=== PATIENT | male | born 1940 | race Caucasian/White ===

== ENCOUNTER 2018-11-23 15:52 | Emergency (ER) | payer MEDICARE, MEDICAID, SELFPAY ==
[2018-11-23 15:47] VITALS: BP 195/65; PULSE 51; RESP 18; TEMP 36.7; O2SAT 100
--- NOTE | 2018-11-23 16:10 | DI.RAD.S_ITS ---
PROCEDURE: XR CHEST 1V INDICATIONS: chest pain TECHNIQUE: One view of the chest was acquired. COMPARISON: [facility], , CHEST 2 VIEW, 06/04/2010, 9:54. FINDINGS: Surgical changes and devices: None. Lungs and pleura: Lungs are clear. No pleural effusions or pneumothorax. Mediastinum: Mediastinal contours appear normal. Heart size is normal. Bones and chest wall: No suspicious bony lesions. Overlying soft tissues appear unremarkable. IMPRESSION: No acute cardiopulmonary disease process. Dictated by: Ashley Austin MD, PhD on 11/23/2018 at 16:23 Approved by: Ashley Austin MD, PhD on 11/23/2018 at 16:24
[2018-11-23 16:16] VITALS: BP 213/66; PULSE 48; RESP 18; O2SAT 99
[2018-11-23 16:19] LABS: Add Manual Diff / Slide Review NO; Basophils Absolute Auto 100 /uL (0-100); Basophils Percent Auto 0.6 % (0-2); Eosinophils Absolute Auto 100 /uL (0-450); Eosinophils Percent Auto 1.7 % (2-4); Hematocrit 36.7 % (41-53); Hemoglobin 12.2 g/dL (13.5-17.5); Lymphocytes Absolute Auto 2000 /uL (1100-4500); Lymphocytes Percent Auto 24.7 % (25-40); Mean Corpuscular HGB Conc 33.3 % (30-36); Mean Corpuscular Hemoglobin 29.3 PG (26-34); Mean Corpuscular Volume 87.8 fL (80-100); Monocytes Absolute Auto 700 /uL (0-900); Monocytes Percent Auto 9.5 % (3-14); Neutrophils Absolute Auto 5000 /uL (1500-7000); Neutrophils Percent Auto 63.5 % (50-75); Platelet Count 223 X10^3/uL (150-400); Red Blood Cell Count 4.17 X10^6/uL (4.5-5.9); Red Cell Distribution Width 13.9 % (11.6-14.8); White Blood Cell Count 7.9 X10^3/uL (4.5-11.0)
[2018-11-23 16:23] LABS: PTT Partial Thromboplastin Tim 31 SECONDS (26.4-36.2)
[2018-11-23 16:25] LABS: Alanine Aminotransferase 16 IU/L (21-72); Albumin 4.4 g/dL (3.5-5.0); Albumin Globulin Ratio 1.3 (1.0-2.8); Alkaline Phosphatase 79 U/L (38-126); Aspartate Aminotransferase 23 IU/L (17-59); Bilirubin Total 0.5 mg/dL (0.2-1.3); Blood Urea Nitrogen 34 mg/dL (9-20); Calcium 8.9 mg/dL (8.4-10.2); Carbon Dioxide 24 mmol/L (22-32); Chloride 107 mmol/L (98-107); Creatine Kinase 155 U/L (55-170); Estimated Glomerular Filt Rate 32.4 mL/min (>60); Globulin 3.4 g/dL (1.7-4.1); Glucose 116 mg/dL (80-110); Lipase 124 U/L (23-300); Magnesium 1.9 mg/dL (1.6-2.3); Potassium 4.6 mmol/L (3.4-5.1); Sodium 142 mmol/L (137-145); Total Protein 7.8 g/dL (6.3-8.2)
[2018-11-23 16:30] VITALS: BP 157/90; PULSE 46; RESP 17; O2SAT 99
[2018-11-23 16:34] LABS: B Type Natriuretic Peptide 224 (<100)
[2018-11-23 16:36] LABS: Troponin I < 0.012 ng/mL (0.01-0.034)
[2018-11-23 16:40] LABS: CKMB % Relative Index 0.8 % (1.5-5.0); Creatine Kinase MB 1.29 ng/mL (<2.37); HEMOLYSIS 20 (0-50)
--- NOTE | 2018-11-23 16:58 | ED.DIZZY ---
HPI - Dizziness General Chief Complaint: Dizziness Stated Complaint: Feeling woozy Time Seen by Provider: 11/23/18 16:35 Source: patient Mode of arrival: ambulatory Limitations: no limitations History of Present Illness HPI Narrative: 78-year-old male who comes in states he feels woozy. Patient states it is not like he is lightheaded he does not feel like he is going to pass out. He does not feel like he is necessarily going to fall down but he just does not feel quite right. He states he will go lay down for he feels better than he gets up after couple hours and walks around feels okay for couple hours in the have feelings again. Patient denies any fevers or chills, no headache, no new vision changes, no chest pain, no chest pressure, no shortness of breath, no nausea or vomiting no other issues with bowel movements. Patient has chronic urinary frequency he states he takes a pill which appears to be a water pill which makes him urinate more frequently. He does state that he recently found his medication for his knees and his osteoarthritis and has been taking it again. It appears this may be his etodolac. Patient denies any other neurologic changes. He is accompanied by his girlfriend of the past 3 years who states that he is his normal mental state. He normally walks unassisted and has been walking unassisted at home. He has not had any recent falls other than falling onto his right knee. He is unsure if he has any chronic kidney disease, he knows he takes medication for blood pressure and for his urination. He denies any prior surgeries. He does continue to smoke a pipe, he states he started smoking around the age of 4. He denies alcohol currently, but used to several years ago. Patient is requesting a pill to make his symptoms feel better so that he can go drive some furniture to another location on Wednesday. Related Data Home Medications Medication Instructions Recorded Confirmed atenolol 50 mg PO DAILY #0 06/03/10 11/23/18 alfuzosin 10 mg PO DAILY 11/23/18 11/23/18 etodolac 400 mg PO BID 11/23/18 11/23/18 furosemide 40 mg PO DAILY 11/23/18 11/23/18 glimepiride 4 mg PO DAILY 11/23/18 11/23/18 lisinopril 20 mg PO DAILY 11/23/18 11/23/18 omeprazole 20 mg PO BID 11/23/18 11/23/18 simvastatin 40 mg PO DAILY 11/23/18 11/23/18 temazepam 30 mg PO BEDTIME PRN 11/23/18 11/23/18 Allergies Allergy/AdvReac Type Severity Reaction Status Date / Time No Known Drug Allergies Allergy Verified 11/23/18 16:13 Review of Systems Review of Systems ROS Unobtainable: All systems reviewed & are unremarkable except as noted in HPI and below Constitutional Denies chills, Denies daytime sleepiness, Denies excessive sweating, Denies fatigue, Denies fever(s), Denies headache(s), Denies lethargy, Denies malaise, Denies weakness and Reports other (Moves the) Eyes Denies change in vision ENT Ears, Nose, Mouth, and Throat: Denies dizziness, Denies headache(s) and Denies disequilibrium Cardiovascular Denies chest pain, Denies diaphoresis, Denies syncope, Denies edema, Denies irregular heart rhythm, Denies lightheadedness, Denies palpitations, Denies dyspnea, Denies dyspnea on exertion and Denies orthopnea Respiratory Denies change in phlegm color, Denies chest congestion, Denies cough, Denies dyspnea, Denies dyspnea on exertion and Denies wheezing Gastrointestinal Gastrointestinal: Denies abdominal pain, Denies change in bowel habits, Denies diarrhea, Denies nausea and Denies vomiting Genitourinary Denies hematuria, Denies dysuria, Denies flank pain, Reports urinary frequency, Denies urinary hesitancy, Denies urinary incontinence and Reports urinary urgency Musculoskeletal Denies back pain, Denies muscle weakness and Denies numbness Integumentary/Breasts Denies rash Neurologic Reports as per HPI, Denies behavioral changes, Denies confusion, Denies dizziness, Denies syncope, Denies headache(s), Denies lack of coordination, Denies focal weakness, Denies numbness, Denies sensory deficit, Denies paresthesias, Denies disequilibrium and Denies weakness Psychiatric Denies behavioral changes and Denies confusion Endocrine Denies excessive sweating, Denies fatigue and Denies palpitations Allergic/Immunologic Denies wheezing [facility] Medical History (Updated 11/23/18 @ 18:21 by Shirley Rincon DO) Dyslipidemia (Chronic) Hypertension (Chronic) Osteoarthritis (Chronic) Social History (Updated 11/23/18 @ 17:13 by Shirley Rincon DO) details: has girlfriend of 3 years Smoking Status: Current every day smoker alcohol intake: former substance use type: does not use Exam Narrative Exam Narrative: GEN: well nourished, well appearing male, alert and oriented x 3, patient appears to be in no acute distress. HEENT: Atraumatic, pupils are equal round reactive to light, extraocular movements are intact, nares are clear, TMs are clear with no fluid, there is no conjunctival pallor. Throat is clear without any exudates, erythema, tonsillar enlargement or uvular deviation, no facial droop. HEART: Regular rate and rhythm without murmur, clicks, rubs. Pulses are equal in upper and lower extremities LUNGS:Lungs clear to auscultation, no wheezes, rales, crackles, chest moves symmetrically ABD:bowel sounds normal, soft, non-tender, no guarding, rebound, rigidity, no masses noted, no hepatosplenomegaly :No CVA tenderness MSCL: Non-tender, no muscle atrophy, muscles strength 5/5 upper and lower extremities, full range of motion, normal gait NEURO:CN 2-12 intact, sensation normal, reflexes 2/4 upper and lower extremities. Initial Vital Signs Initial Vital Signs: Vital Signs Temperature 98.1 F 11/23/18 15:47 Pulse Rate 51 L 11/23/18 15:47 Respiratory Rate 18 11/23/18 15:47 Blood Pressure 195/65 H 11/23/18 15:47 Pulse Oximetry 100 11/23/18 15:47 Scores GCS Anastasia coma scale eye opening: Spontaneous Anastasia coma scale verbal response: Orientated Anastasia coma scale motor response: Obey commands [place] coma scale total score: 15 Course Orders Ordered: ED Orders 11/23/18 15:52 EKG-12 Lead Routine 11/23/18 16:05 BNP [B Type Natriuretic Peptide] Stat Complete Blood Count AUTO DIFF Stat Comprehensive Metabolic Panel Stat Lipase Stat Magnesium Stat Partial Thromboplastin Time Stat Prothrombin Time INR Stat Troponin & CK Cardiac Panel Stat 11/23/18 16:10 XR chest 1V Stat EKG-12 Lead Stat Vital Signs - 8 hr 11/23/18 15:47 11/23/18 16:16 11/23/18 16:30 Temperature 98.1 F Pulse Rate 51 L 48 L 46 L Respiratory Rate 18 18 17 Blood Pressure 195/65 H Blood Pressure [Right Arm] 213/66 H 157/90 H Pulse Oximetry 100 99 99 11/23/18 17:00 11/23/18 17:03 11/23/18 18:08 Temperature Pulse Rate 42 L 44 L 43 L Respiratory Rate 19 18 15 Blood Pressure Blood Pressure [Right Arm] 176/51 H 176/51 H 208/37 H Pulse Oximetry 98 99 100 MDM - Dizziness Lab Data Attestation: I reviewed the patient's lab results. Result diagrams: 11/23/18 16:05 11/23/18 16:05 Lab Results 11/23/18 11/23/18 11/23/18 Range/Units 06:05 16:05 16:05 WBC 7.9 (4.5-11.0) X10^3/uL RBC 4.17 L (4.5-5.9) X10^6/uL Hgb 12.2 L (13.5-17.5) g/dL Hct 36.7 L (41-53) % MCV 87.8 (80-100) fL MCH 29.3 (26-34) PG MCHC 33.3 (30-36) % RDW 13.9 (11.6-14.8) % Plt Count 223 (150-400) X10^3/uL Neut % (Auto) 63.5 (50-75) % Lymph % (Auto) 24.7 L (25-40) % Graves % (Auto) 9.5 (3-14) % Eos % (Auto) 1.7 L (2-4) % Baso % (Auto) 0.6 (0-2) % Neut # (Auto) 5000 (5633-3042) /uL Lymph # (Auto) 2000 (5766-9325) /uL Graves # (Auto) 700 (0-900) /uL Eos # (Auto) 100 (0-450) /uL Baso # (Auto) 100 (0-100) /uL PT 12.0 (10.1-12.7) SECONDS INR 1.0 (0.9-1.3) APTT 31 (26.4-36.2) SECONDS Sodium (137-145) mmol/L Potassium (3.4-5.1) mmol/L Chloride (98-107) mmol/L Carbon Dioxide (22-32) mmol/L BUN (9-20) mg/dL Creatinine (0.66-1.25) mg/dL Estimated GFR (>60) mL/min BUN/Creatinine Ratio (6-22) Glucose (80-110) mg/dL Calcium (8.4-10.2) mg/dL Magnesium (1.6-2.3) mg/dL Total Bilirubin (0.2-1.3) mg/dL AST (17-59) IU/L ALT (21-72) IU/L Alkaline Phosphatase (38-126) U/L Total Creatine Kinase (55-170) U/L CK-MB (CK-2) (<2.37) ng/mL CK-MB (CK-2) Rel Index (1.5-5.0) % Troponin I (0.01-0.034) ng/mL B-Natriuretic Peptide 224 H (<100) Total Protein (6.3-8.2) g/dL Albumin (3.5-5.0) g/dL Globulin (1.7-4.1) g/dL Albumin/Globulin Ratio (1.0-2.8) Lipase (23-300) U/L TSH 1.88 (0.47-4.68) uIU/mL 11/23/18 Range/Units 16:05 WBC (4.5-11.0) X10^3/uL RBC (4.5-5.9) X10^6/uL Hgb (13.5-17.5) g/dL Hct (41-53) % MCV (80-100) fL MCH (26-34) PG MCHC (30-36) % RDW (11.6-14.8) % Plt Count (150-400) X10^3/uL Neut % (Auto) (50-75) % Lymph % (Auto) (25-40) % Graves % (Auto) (3-14) % Eos % (Auto) (2-4) % Baso % (Auto) (0-2) % Neut # (Auto) (4568-8197) /uL Lymph # (Auto) (0288-9331) /uL Graves # (Auto) (0-900) /uL Eos # (Auto) (0-450) /uL Baso # (Auto) (0-100) /uL PT (10.1-12.7) SECONDS INR (0.9-1.3) APTT (26.4-36.2) SECONDS Sodium 142 (137-145) mmol/L Potassium 4.6 (3.4-5.1) mmol/L Chloride 107 (98-107) mmol/L Carbon Dioxide 24 (22-32) mmol/L BUN 34 H (9-20) mg/dL Creatinine 2.00 H (0.66-1.25) mg/dL Estimated GFR 32.4 L (>60) mL/min BUN/Creatinine Ratio 17.0 (6-22) Glucose 116 H (80-110) mg/dL Calcium 8.9 (8.4-10.2) mg/dL Magnesium 1.9 (1.6-2.3) mg/dL Total Bilirubin 0.5 (0.2-1.3) mg/dL AST 23 (17-59) IU/L ALT 16 L (21-72) IU/L Alkaline Phosphatase 79 (38-126) U/L Total Creatine Kinase 155 (55-170) U/L CK-MB (CK-2) 1.29 (<2.37) ng/mL CK-MB (CK-2) Rel Index 0.8 L (1.5-5.0) % Troponin I < 0.012 (0.01-0.034) ng/mL B-Natriuretic Peptide (<100) Total Protein 7.8 (6.3-8.2) g/dL Albumin 4.4 (3.5-5.0) g/dL Globulin 3.4 (1.7-4.1) g/dL Albumin/Globulin Ratio 1.3 (1.0-2.8) Lipase 124 (23-300) U/L TSH (0.47-4.68) uIU/mL Urine Dip Bedside Urine Glucose Negative Bedside Urine Bilirubin +++ 4 Bedside Urine Ketone - Negative Urine Specific [place] 1.020 Bedside Urine Occult Blood - Negative Bedside Urine pH 5.0 Bedside Urine Protein +/- 15 Bedside Urine Urobilinogen - Negative Bedside Urine Nitrite - Negative Bedside Urine Leukocytes - Negative Esterase Imaging Data Chest x-ray: Radiologist's impression: [address] [address] XRay Report Signed Patient: Robin Baugh EMR#: [id number] : 1940Acct:[id number] Age/Sex: 78 / MDate of Service: 11/23/18 Loc: ED Accession Number: [id number] Procedure: XR chest 1V Ordering Provider: Shirley Rincon D.O. PROCEDURE: XR CHEST 1V INDICATIONS: chest pain TECHNIQUE: One view of the chest was acquired. COMPARISON: [facility], , CHEST 2 VIEW, 06/04/2010, 9:54. FINDINGS: Surgical changes and devices: None. Lungs and pleura: Lungs are clear. No pleural effusions or pneumothorax. Mediastinum: Mediastinal contours appear normal. Heart size is normal. Bones and chest wall: No suspicious bony lesions. Overlying soft tissues appear unremarkable. IMPRESSION: No acute cardiopulmonary disease process. Dictated by: Ashley Austin MD, PhD on 11/23/2018 at 16:23 Approved by: Ashley Austin MD, PhD on 11/23/2018 at 16:24 ECG Data Attestation: I personally reviewed and interpreted this ECG as follows: Prior ECG tracings: not available for review Interpretation: Sinus bradycardia with a rate of 49, TX interval 183, QRS of 114, QTC of 409. Q-wave of [address] elevation appreciated. No priors available. MDM Narrative Medical decision making narrative: Patient comes in for described, wooziness. When asked specifically he describes it not as dizziness, not of lightheadedness and does not feel like he is going to pass said he just feels woozy and cannot really explain in any other way. He does not have any dislike liberally, no vertigo or other similar symptoms. Patient's labs show mild anemia, coags are normal, his creatinine is 2 with a BUN of 34. I am not able to obtain any prior labs so this may be his baseline but it is unclear. Patient's glucose is 116, BNP is 224 with a troponin of less than 0.012. TSH is normal. Patient's heart rate is in the 40s which could be contributing to his symptoms. He does take atenolol but he is hypertensive in the department. Patient was able to ambulate multiple times through the emergency department. Continues to be asymptomatic at this time. Point of care urine did not show any signs of infection or dehydration. Discussed with patient he would like to return home. I asked that he call his primary care provider tomorrow for follow-up for re-evaluation. Also paged Dr. Pearl who is covering for his primary care team. Patient did not want to wait for a callback. Discharge Plan Departure Patient Disposition: Home Clinical Impression: Dizziness Discharge Date/Time: 11/23/18 18:28 Interventions: ED Discharge Assessment Last Done: 11/23/18 18:27 Instructions: DI for Dizziness-Nonvertigo Activity Restrictions/Additional Instructions: Follow up with primary care in the next 24-48 hours. Call for an appointment in the morning. Continue home medications as prescribed. Return to the ER for fevers greater than 100.4F, worsening wooziness, passing out, new chest pain, shortness of breath, persistent vomiting, black or bloody stools, sudden severe headaches, difficulty with speech, weakness in your extremities, new vision changes or other new or concerning symptoms. Prescriptions: No Action atenolol 50 MG tablet 50 mg PO DAILY Qty: 0 RF: 0 lisinopril 20 mg tablet 20 mg PO DAILY RF: 0 simvastatin 40 mg tablet 40 mg PO DAILY RF: 0 temazepam 30 mg capsule 30 mg PO BEDTIME PRN (Reason: Sleep) RF: 0 glimepiride 4 mg tablet 4 mg PO DAILY RF: 0 omeprazole 20 mg capsule,delayed release(DR/EC) 20 mg PO BID RF: 0 etodolac 400 mg tablet 400 mg PO BID RF: 0 furosemide 20 mg tablet 40 mg PO DAILY RF: 0 alfuzosin 10 mg tablet extended release 24 hr 10 mg PO DAILY RF: 0 Referrals: Ashvin Vazquez MD [Physician] - Kelsey Peña MD [Non-Staff] -
[2018-11-23 17:00] VITALS: BP 176/51; PULSE 42; RESP 19; O2SAT 98
[2018-11-23 17:03] VITALS: BP 176/51; PULSE 44; RESP 18; O2SAT 99
[2018-11-23 17:44] LABS: Thyroid Stimulating Hormone 1.88 uIU/mL (0.47-4.68)
[2018-11-23 18:08] VITALS: BP 208/37; PULSE 43; RESP 15; O2SAT 100
== END 2018-11-23 18:28 | disposition home or self-care (01) ==
PROVIDERS: Emergency Provider Emergency Medicine
DX: R42 Dizziness and giddiness (principal); R00.1 Bradycardia, unspecified
CPT/HCPCS: 36591; 71045; 80053; 81003; 82550; 82553; 83690; 83735; 83880; 84443; 84484; 85025; 85610; 85730; 93005; 93010; 99283; 99285

== ENCOUNTER → 2021-08-14 16:31 | Outpatient (ROUT) | payer OTHER, MEDICAID, SELFPAY ==
[2021-08-14 17:01] LABS: BUN Creatinine Ratio 24.8 (6-22); Blood Urea Nitrogen 40 mg/dL (9-20); Calcium 8.6 mg/dL (8.4-10.2); Carbon Dioxide 21 mmol/L (22-32); Chloride 108 mmol/L (98-107); Estimated Glomerular Filt Rate 43 mL/min (>60); Glucose 153 mg/dL (80-110); HEMOLYSIS 31 (0-50); Potassium 4.6 mmol/L (3.4-5.1); Sodium 140 mmol/L (137-145)
[2021-08-14 17:20] LABS: Hemoglobin A1C% w Est Avg Glu 6.5 % (4.0-6.0)
== END ==
PROVIDERS: Visit Provider Student in an Organized Health Care Education/Training Program
DX: E11.29 Type 2 diabetes mellitus with other diabetic kidney complication (principal); E87.6 Hypokalemia; I12.9 Hypertensive chronic kidney disease with stage 1 through stage 4 chronic kidney disease, or unspecified chronic kidney disease
CPT/HCPCS: 80048; 83036

== ENCOUNTER 2021-09-24 07:54 | Inpatient (IN) | payer OTHER, MEDICAID, SELFPAY ==
[2021-09-24] VITALS (39 sets, daily range): BP systolic 152–234; BP diastolic 68–153; PULSE 46–77; RESP 16–33; TEMP 36.3–36.9; O2SAT 94–100; BMI 25.0
--- NOTE | 2021-09-24 08:43 | ED.FALL ---
HPI - Fall General Chief Complaint: Fall Stated Complaint: feels funny, trouble getting into bed, fell Time Seen by Provider: 09/24/21 08:43 Source: patient Mode of arrival: Family Vehicle Limitations: no limitations History of Present Illness HPI Narrative: This is an 80-year-old male who states that last night he was feeling funny, he kept falling while trying to get into bed. He states that his leg seem like it was not working very well. He did not appreciate any headache, no neck or back pain, patient states he did not think he hit his head, no chest pain or shortness of breath. No nausea or vomiting. No difficulty with speech or facial droop, he denies any numbness or tingling of his extremities. He states that his leg seems to be working fine. He had several falls and EMS was contacted this morning and his glucose was found to be 40, he was given glucose, rechecked in the 70s and patient elected to arrived via private auto. Patient ambulating normally at this time. He does have a history of hypertension, dyslipidemia, CKD, diabetes on oral medications only. Related Data Home Medications Medication Instructions Recorded Confirmed atenolol 50 mg tablet 50 mg PO DAILY ##0 06/03/10 09/24/21 alfuzosin 10 mg tablet,extended 10 mg PO DAILY 11/23/18 09/24/21 release 24 hr furosemide 20 mg tablet 40 mg PO DAILY 11/23/18 09/24/21 omeprazole 20 mg capsule,delayed 20 mg PO BID 11/23/18 09/24/21 release melatonin 5 mg tablet 5 mg PO BEDTIME 09/24/21 09/24/21 potassium chloride 10 mEq 10 meq PO DAILY 09/24/21 09/24/21 tablet,extended release(part/cryst) trazodone 100 mg tablet 100 mg PO BEDTIME 09/24/21 09/24/21 Previous Rx's Medication Instructions Recorded aspirin 81 mg tablet,delayed 81 mg PO DAILY #30 tabs 09/27/21 release atorvastatin 80 mg tablet 80 mg PO BEDTIME #90 tabs 09/27/21 lisinopril 20 mg tablet 30 mg PO DAILY #30 tabs 09/27/21 Allergies Allergy/AdvReac Type Severity Reaction Status Date / Time No Known Drug Allergies Allergy Verified 09/24/21 08:38 Review of Systems Review of Systems ROS Unobtainable: All systems reviewed & are unremarkable except as noted in HPI and below Patient History Medical History Dyslipidemia Hypertension Osteoarthritis Social History details: has girlfriend of 3 years household members: none Smoking Status: Former smoker alcohol intake: former substance use type: does not use Smoking Status: Former smoker alcohol intake frequency: 0-2 drinks per day Substance Use Type: does not use Exam Narrative Exam Narrative: GEN: well nourished, well appearing male, alert and oriented x 3, patient appears to be in mild distress. HEENT: Atraumatic, pupils are equal round reactive to light, extraocular movements are intact, nares are clear, TMs are clear with no fluid, there is no conjunctival pallor. Throat is clear without any exudates, erythema, tonsillar enlargement or uvular deviation, no facial droop. Normal speech. HEART: Regular rate and rhythm without murmur, clicks, rubs. Pulses are equal in upper and lower extremities LUNGS:Lungs clear to auscultation, no wheezes, rales, crackles, chest moves symmetrically ABD:bowel sounds normal, soft, non-tender, no guarding, rebound, rigidity, no masses noted, no hepatosplenomegaly :No CVA tenderness MSCL: Non-tender, no muscle atrophy, muscles strength 5/5 upper and lower extremities, full range of motion, normal gait, patient does use walker but ambulates without any issue and quite quickly. NEURO:CN 2-12 intact, sensation normal, reflexes 2/4 upper and lower extremities. finger nose finger test normal, heel robles test normal, romberg normal SKIN: Rash, erythema or other skin changes. Initial Vital Signs Initial Vital Signs: Vital Signs Pulse Oximetry 100 09/24/21 08:03 Course Orders Ordered: Discontinued Medications Acetaminophen (Acetaminophen 325 Mg Tablet) 650 mg PO Q6HR [facility] Last Admin: 09/27/21 11:02 Dose: Not Given Documented By: Admin: 09/27/21 05:57 Dose: 650 mg Documented By: Admin: 09/27/21 00:08 Dose: Not Given Documented By: Admin: 09/26/21 17:39 Dose: 650 mg Documented By: Admin: 09/26/21 12:21 Dose: 650 mg Documented By: Admin: 09/26/21 06:02 Dose: 650 mg Documented By: Admin: 09/26/21 00:59 Dose: 650 mg Documented By: Admin: 09/25/21 17:30 Dose: 650 mg Documented By: Admin: 09/25/21 12:00 Dose: Not Given Documented By: Admin: 09/25/21 06:00 Dose: 650 mg Documented By: Admin: 09/24/21 23:30 Dose: 650 mg Documented By: Admin: 09/24/21 18:37 Dose: 650 mg Documented By: DEYSI Aspirin (Aspirin 81 Mg Chew Tab) 324 mg PO NOW ONE Stop: 09/24/21 10:48 Last Admin: 09/24/21 12:23 Dose: 324 mg Documented By: TURNER Aspirin (Aspirin Ec 81 Mg Tablet) 81 mg PO DAILY [facility] Last Admin: 09/27/21 08:50 Dose: 81 mg Documented By: Admin: 09/26/21 08:46 Dose: 81 mg Documented By: Admin: 09/25/21 09:11 Dose: 81 mg Documented By: EM Atenolol (Atenolol 50 Mg Tablet) 50 mg PO NOW ONE Stop: 09/24/21 09:36 Last Admin: 09/24/21 10:00 Dose: 50 mg Documented By: TURNER Atenolol (Atenolol 50 Mg Tablet) 50 mg PO DAILY [facility] Last Admin: 09/27/21 08:50 Dose: 50 mg Documented By: Admin: 09/26/21 08:48 Dose: Not Given Documented By: Admin: 09/25/21 09:11 Dose: Not Given Documented By: EM Atorvastatin Calcium (Atorvastatin 20 Mg Tablet) 80 mg PO BEDTIME [facility] Last Admin: 09/26/21 21:27 Dose: 80 mg Documented By: Admin: 09/25/21 21:05 Dose: 80 mg Documented By: Admin: 09/24/21 20:45 Dose: 80 mg Documented By: RON Dextrose (Dextrose 50 % In Water 25 Gm/50 Ml Syringe) 25 gm IV PRN PRN PRN Reason: Hypoglycemia Enoxaparin Sodium (Enoxaparin 40 Mg/0.4 Ml Syringe) 40 mg SUBCUT DAILY [facility] Last Admin: 09/27/21 08:50 Dose: 40 mg Documented By: Admin: 09/26/21 08:46 Dose: 40 mg Documented By: Admin: 09/25/21 09:11 Dose: 40 mg Documented By: EM Furosemide (Furosemide 20 Mg Tablet) 40 mg PO DAILY [facility] Last Admin: 09/27/21 08:50 Dose: 40 mg Documented By: Admin: 09/26/21 08:53 Dose: Not Given Documented By: EDWIN Furosemide (Furosemide 40 Mg/4 Ml Vial) 40 mg IV NOW ONE Stop: 09/25/21 08:02 Last Admin: 09/25/21 11:28 Dose: 40 mg Documented By: EM Glimepiride (Glimepiride 2 Mg Tablet) 4 mg PO DAILY [facility] Hydralazine HCl (Hydralazine 20 Mg/Ml Vial) 10 mg IV Q6HR PRN PRN Reason: Blood Pressure - High Last Admin: 09/27/21 00:33 Dose: 10 mg Documented By: Admin: 09/26/21 00:50 Dose: 10 mg Documented By: RON Hydralazine HCl (Hydralazine 20 Mg/Ml Vial) 5 mg IV NOW ONE Stop: 09/26/21 12:46 Last Admin: 09/26/21 13:13 Dose: 5 mg Documented By: EDWIN Remdesivir 200 mg/ Sodium (Chloride) 250 mls @ 250 mls/hr IV NOW ONE Stop: 09/24/21 19:00 Last Infusion: 09/24/21 19:36 Dose: 0 mls/hr Documented By: Admin: 09/24/21 18:36 Dose: 250 mls/hr Documented By: DEYSI Remdesivir 100 mg/ Sodium (Chloride) 250 mls @ 250 mls/hr IV DAILY@1800 [facility] Stop: 09/28/21 18:59 Last Admin: 09/26/21 17:39 Dose: 250 mls/hr Documented By: Infusion: 09/25/21 19:00 Dose: 0 mls/hr Documented By: Admin: 09/25/21 17:30 Dose: 250 mls/hr Documented By: NINO Magnesium Sulfate (Magnesium Sulfate) 2 gm in 50 mls @ 25 mls/hr IV NOW ONE Stop: 09/25/21 09:58 Last Admin: 09/25/21 11:28 Dose: 25 mls/hr Documented By: EM Co-signed By: KITTY Potassium Phosphate 30 mmol/ (Sodium Chloride) 510 mls @ 127.5 mls/hr IV NOW ONE Stop: 09/25/21 08:00 Last Admin: 09/25/21 13:33 Dose: 127.5 mls/hr Documented By: EM Ibuprofen (Ibuprofen 600 Mg Tablet) 600 mg PO Q8HR [facility] Last Admin: 09/27/21 13:14 Dose: Not Given Documented By: Admin: 09/27/21 05:57 Dose: 600 mg Documented By: Admin: 09/26/21 21:27 Dose: 600 mg Documented By: Admin: 09/26/21 13:14 Dose: Not Given Documented By: Admin: 09/26/21 06:02 Dose: 600 mg Documented By: Admin: 09/25/21 21:09 Dose: 600 mg Documented By: Admin: 09/25/21 13:35 Dose: 600 mg Documented By: Admin: 09/25/21 06:00 Dose: 600 mg Documented By: Admin: 09/24/21 21:10 Dose: 600 mg Documented By: RON Insulin Human Lispro (Insulin Lispro 100 Unit/Ml 3ml Vial) 0 unit SUBCUT [facility]; Protocol Last Admin: 09/27/21 12:33 Dose: Not Given Documented By: Admin: 09/27/21 08:49 Dose: Not Given Documented By: Admin: 09/26/21 21:28 Dose: Not Given Documented By: Admin: 09/26/21 17:20 Dose: 1 unit Documented By: OW Co-signed By: MS Admin: 09/26/21 12:21 Dose: 1 unit Documented By: OW Co-signed By: NC Admin: 09/26/21 08:47 Dose: 1 unit Documented By: OW Co-signed By: CLL Admin: 09/25/21 21:06 Dose: Not Given Documented By: Admin: 09/25/21 17:30 Dose: 1 unit Documented By: EM Co-signed By: AILEEN Admin: 09/25/21 11:50 Dose: Not Given Documented By: Admin: 09/25/21 09:12 Dose: Not Given Documented By: Admin: 09/24/21 21:11 Dose: Not Given Documented By: RF Labetalol HCl (Labetalol 20 Mg/4 Ml Syringe) 20 mg IV NOW ONE Stop: 09/24/21 19:49 Last Admin: 09/24/21 20:44 Dose: Not Given Documented By: RON Lisinopril (Lisinopril 20 Mg Tablet) 20 mg PO NOW ONE Stop: 09/24/21 09:36 Last Admin: 09/24/21 10:01 Dose: 20 mg Documented By: TURNER Lisinopril (Lisinopril 20 Mg Tablet) 20 mg PO DAILY [facility] Last Admin: 09/27/21 08:50 Dose: 20 mg Documented By: Admin: 09/26/21 08:46 Dose: 20 mg Documented By: Admin: 09/25/21 09:11 Dose: 20 mg Documented By: NINO Lisinopril (Lisinopril 10 Mg Tablet) 10 mg PO NOW ONE Stop: 09/27/21 13:37 Last Admin: 09/27/21 13:44 Dose: 10 mg Documented By: LAURY Magnesium Hydroxide (Magnesium Hydroxide 30 Ml Udc) 30 ml PO DAILY PRN PRN Reason: Constipation Morphine Sulfate (Morphine 2 Mg/Ml Inj) 2 mg IV Q5MIN PRN PRN Reason: Chest Pain Naloxone HCl (Naloxone 0.4 Mg/Ml Vial) 0.2 mg IV Q2MIN PRN PRN Reason: Opiate Reversal Nitroglycerin (Nitroglycerin 0.4 Mg Sl Tab) 0.4 mg SL [id number] PRN PRN Reason: Chest Pain Alfuzosin 10 Mg Tablet Extended Release 24 Hr 10 mg PO BEDTIME [facility] Last Admin: 09/26/21 21:27 Dose: Not Given Documented By: Admin: 09/25/21 21:04 Dose: 10 mg Documented By: Admin: 09/24/21 21:10 Dose: 10 mg Documented By: RON Non-Formulary Medication (Omeprazole) 20 mg PO BID [facility] Home Med Storage 0 each PO PRN PRN PRN Reason: HOME MED STORAGE Ondansetron HCl (Ondansetron 4 Mg/2 Ml Inj) 4 mg IV Q8HR PRN PRN Reason: Nausea And Vomiting Pantoprazole Sodium (Pantoprazole Dr 20 Mg Tablet) 20 mg PO 0600 [facility] Last Admin: 09/27/21 05:57 Dose: 20 mg Documented By: Admin: 09/26/21 06:03 Dose: 20 mg Documented By: Admin: 09/25/21 06:00 Dose: 20 mg Documented By: RON Trazodone HCl (Trazodone 100 Mg Tablet) 100 mg PO BEDTIME [facility] Last Admin: 09/26/21 21:27 Dose: 100 mg Documented By: Admin: 09/25/21 21:05 Dose: 100 mg Documented By: Admin: 09/24/21 21:10 Dose: 100 mg Documented By: RON Trazodone HCl (Trazodone 100 Mg Tablet) 100 mg PO BEDTIME [facility] Last Admin: 09/25/21 21:06 Dose: Not Given Documented By: Admin: 09/24/21 21:12 Dose: Not Given Documented By: RON Reevaluation(s) Reevaluation #1: Recheck patient's troponin was positive, he continues to be hypertensive given his home medications which he had not taken this morning. Repeat troponin is negative. Patient is asymptomatic. Plan to repeat a 3rd time as lab ran both initial positive and secondary negative twice. Discussed with patient potential for lab error and 3rd troponin was drawn and is pending Consultations Consultation #1: Spoke with Dr. Keita, cardiology. Patient at this time is COVID positive, no acute EKG changes he is asymptomatic but does have a positive troponin suspect this is likely hypertrophic knee media and does not recommend heparin at this time. We did note that it was trending upwards. Consultation #2: Spoke initially with Dr. 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 Spoke with Dr. Plummer and he will be down to see patient.? Reviewed findings today incidental COVID which patient seemed to be asymptomatic other than falls with positive troponin, possible lab error but repeat troponin on the 3rd time is positive.? Patient was hypoglycemic but improved his glucose. Vital Signs Vital signs: Vital Signs - 8 hr 09/24/21 08:03 09/24/21 08:05 09/24/21 08:11 Temperature Pulse Rate 60 60 Respiratory Rate 20 Blood Pressure 211/88 H 183/135 H Pulse Oximetry 100 99 100 09/24/21 08:14 09/24/21 08:30 09/24/21 08:49 Temperature 98.5 F Pulse Rate 60 58 L 59 L Respiratory Rate 19 26 H 27 H Blood Pressure 211/88 H 207/95 H Pulse Oximetry 97 99 99 09/24/21 09:00 09/24/21 09:21 09/24/21 09:30 Temperature Pulse Rate 60 61 60 Respiratory Rate 33 H 33 H Blood Pressure 180/89 H Pulse Oximetry 99 99 99 09/24/21 09:31 09/24/21 09:56 09/24/21 10:00 Temperature Pulse Rate 62 68 60 Respiratory Rate 24 19 20 Blood Pressure 206/92 H 215/153 H Pulse Oximetry 99 96 98 09/24/21 10:01 09/24/21 10:30 09/24/21 10:31 Temperature Pulse Rate 63 61 61 Respiratory Rate 27 H 19 18 Blood Pressure 209/120 H 207/78 H Pulse Oximetry 99 98 98 09/24/21 11:00 09/24/21 11:59 09/24/21 12:00 Temperature Pulse Rate 62 58 L 56 L Respiratory Rate 24 19 Blood Pressure Pulse Oximetry 99 98 98 09/24/21 12:11 09/24/21 12:30 09/24/21 13:14 Temperature Pulse Rate 53 L 59 L 56 L Respiratory Rate 18 20 Blood Pressure 195/86 H Pulse Oximetry 99 98 - Fall Lab Data Result diagrams: 09/27/21 06:12 09/27/21 06:12 Labs: Lab Results 09/24/21 09/24/21 09/24/21 Range/Units 08:48 08:48 09:03 WBC 6.1 (4.5-11.0) X10^3/uL RBC 3.78 L (4.5-5.9) X10^6/uL Hgb 10.9 L (13.5-17.5) g/dL Hct 33.1 L (41-53) % MCV 87.6 (80-100) fL MCH 28.9 (26-34) PG MCHC 33.0 (30-36) % RDW 14.5 (11.6-14.8) % Plt Count 210 (150-400) X10^3/uL Neut % (Auto) 78.0 H (50-75) % Lymph % (Auto) 10.7 L (25-40) % [place] % (Auto) 10.7 (3-14) % Eos % (Auto) 0.2 L (2-4) % Baso % (Auto) 0.4 (0-2) % Neut # (Auto) 4800 (8002-8693) /uL Lymph # (Auto) 700 L (3413-6804) /uL [place] # (Auto) 700 (0-900) /uL Eos # (Auto) 0 (0-450) /uL Baso # (Auto) 0 (0-100) /uL PT (10.1-12.7) SECONDS INR (0.9-1.3) APTT (26.4-36.2) SECONDS Sodium 135 L (137-145) mmol/L Potassium 3.9 (3.4-5.1) mmol/L Chloride 104 (98-107) mmol/L Carbon Dioxide 21 L (22-32) mmol/L BUN 25 H (9-20) mg/dL Creatinine 1.36 H (0.66-1.25) mg/dL Estimated GFR 52 L (>60) mL/min BUN/Creatinine Ratio 18.4 (6-22) Glucose 167 H (80-110) mg/dL Calcium 8.1 L (8.4-10.2) mg/dL Total Bilirubin 0.4 (0.2-1.3) mg/dL AST 44 (17-59) IU/L ALT 19 (<50) IU/L Alkaline Phosphatase 61 (38-126) U/L Total Creatine Kinase 609 H (55-170) U/L CK-MB (CK-2) 8.51 H (<2.37) ng/mL CK-MB (CK-2) Rel Index 1.4 L (1.5-5.0) % Troponin I 0.260 H* (0.01-0.034) ng/mL NT-Pro-B Natriuret Pep (<450) pg/mL Total Protein 7.0 (6.3-8.2) g/dL Albumin 3.7 (3.5-5.0) g/dL Globulin 3.3 (1.7-4.1) g/dL Albumin/Globulin Ratio 1.1 (1.0-2.8) Urine RBC (0-5/HPF) Urine WBC (0-5/HPF) Ur Squamous Epith Cells (0-5/HPF) Urine Bacteria (None) Hyaline Casts (None) Granular Casts (None) Ur Culture Indicated? U Opiates 300ng/mL cut (Negative) Ur Oxycodone Screen (Negative) Urine Methadone Screen (Negative) Ur Barbiturates Screen (Negative) U Tricyclic Antidepress (Negative) Ur Phencyclidine Scrn (Negative) Ur Amphetamines Screen (Negative) U Methamphetamines Scrn (Negative) Ur MDMA Scrn (Ecstasy) (Negative) U Benzodiazepines Scrn (Negative) Urine Cocaine Screen (Negative) U Marijuana (THC) Screen (Negative) SARS-CoV-2 (PCR) (Negative) 09/24/21 09/24/21 09/24/21 Range/Units 09:03 09:20 09:20 WBC (4.5-11.0) X10^3/uL RBC (4.5-5.9) X10^6/uL Hgb (13.5-17.5) g/dL Hct (41-53) % MCV (80-100) fL MCH (26-34) PG MCHC (30-36) % RDW (11.6-14.8) % Plt Count (150-400) X10^3/uL Neut % (Auto) (50-75) % Lymph % (Auto) (25-40) % [place] % (Auto) (3-14) % Eos % (Auto) (2-4) % Baso % (Auto) (0-2) % Neut # (Auto) (3982-7546) /uL Lymph # (Auto) (9675-2565) /uL [place] # (Auto) (0-900) /uL Eos # (Auto) (0-450) /uL Baso # (Auto) (0-100) /uL PT (10.1-12.7) SECONDS INR (0.9-1.3) APTT (26.4-36.2) SECONDS Sodium (137-145) mmol/L Potassium (3.4-5.1) mmol/L Chloride (98-107) mmol/L Carbon Dioxide (22-32) mmol/L BUN (9-20) mg/dL Creatinine (0.66-1.25) mg/dL Estimated GFR (>60) mL/min BUN/Creatinine Ratio (6-22) Glucose (80-110) mg/dL Calcium (8.4-10.2) mg/dL Total Bilirubin (0.2-1.3) mg/dL AST (17-59) IU/L ALT (<50) IU/L Alkaline Phosphatase (38-126) U/L Total Creatine Kinase (55-170) U/L CK-MB (CK-2) (<2.37) ng/mL CK-MB (CK-2) Rel Index (1.5-5.0) % Troponin I (0.01-0.034) ng/mL NT-Pro-B Natriuret Pep 2920 H (<450) pg/mL Total Protein (6.3-8.2) g/dL Albumin (3.5-5.0) g/dL Globulin (1.7-4.1) g/dL Albumin/Globulin Ratio (1.0-2.8) Urine RBC 0-1/hpf (0-5/HPF) Urine WBC 0-1/hpf (0-5/HPF) Ur Squamous Epith Cells 0-1 /hpf (0-5/HPF) Urine Bacteria Few (2-10) H (None) Hyaline Casts 0-1/lpf (None) Granular Casts 1-5/lpf (None) Ur Culture Indicated? Culture not indicate U Opiates 300ng/mL cut Negative (Negative) Ur Oxycodone Screen Negative (Negative) Urine Methadone Screen Negative (Negative) Ur Barbiturates Screen Negative (Negative) U Tricyclic Antidepress Negative (Negative) Ur Phencyclidine Scrn Negative (Negative) Ur Amphetamines Screen Negative (Negative) U Methamphetamines Scrn Negative (Negative) Ur MDMA Scrn (Ecstasy) Negative (Negative) U Benzodiazepines Scrn Negative (Negative) Urine Cocaine Screen Negative (Negative) U Marijuana (THC) Screen Negative (Negative) SARS-CoV-2 (PCR) (Negative) 09/24/21 09/24/21 09/24/21 Range/Units 09:25 10:27 12:10 WBC (4.5-11.0) X10^3/uL RBC (4.5-5.9) X10^6/uL Hgb (13.5-17.5) g/dL Hct (41-53) % MCV (80-100) fL MCH (26-34) PG MCHC (30-36) % RDW (11.6-14.8) % Plt Count (150-400) X10^3/uL Neut % (Auto) (50-75) % Lymph % (Auto) (25-40) % [place] % (Auto) (3-14) % Eos % (Auto) (2-4) % Baso % (Auto) (0-2) % Neut # (Auto) (2020-0839) /uL Lymph # (Auto) (6649-3667) /uL [place] # (Auto) (0-900) /uL Eos # (Auto) (0-450) /uL Baso # (Auto) (0-100) /uL PT 12.9 H (10.1-12.7) SECONDS INR 1.2 (0.9-1.3) APTT 36 D (26.4-36.2) SECONDS Sodium (137-145) mmol/L Potassium (3.4-5.1) mmol/L Chloride (98-107) mmol/L Carbon Dioxide (22-32) mmol/L BUN (9-20) mg/dL Creatinine (0.66-1.25) mg/dL Estimated GFR (>60) mL/min BUN/Creatinine Ratio (6-22) Glucose (80-110) mg/dL Calcium (8.4-10.2) mg/dL Total Bilirubin (0.2-1.3) mg/dL AST (17-59) IU/L ALT (<50) IU/L Alkaline Phosphatase (38-126) U/L Total Creatine Kinase (55-170) U/L CK-MB (CK-2) (<2.37) ng/mL CK-MB (CK-2) Rel Index (1.5-5.0) % Troponin I Cancelled (0.01-0.034) ng/mL NT-Pro-B Natriuret Pep (<450) pg/mL Total Protein (6.3-8.2) g/dL Albumin (3.5-5.0) g/dL Globulin (1.7-4.1) g/dL Albumin/Globulin Ratio (1.0-2.8) Urine RBC (0-5/HPF) Urine WBC (0-5/HPF) Ur Squamous Epith Cells (0-5/HPF) Urine Bacteria (None) Hyaline Casts (None) Granular Casts (None) Ur Culture Indicated? U Opiates 300ng/mL cut (Negative) Ur Oxycodone Screen (Negative) Urine Methadone Screen (Negative) Ur Barbiturates Screen (Negative) U Tricyclic Antidepress (Negative) Ur Phencyclidine Scrn (Negative) Ur Amphetamines Screen (Negative) U Methamphetamines Scrn (Negative) Ur MDMA Scrn (Ecstasy) (Negative) U Benzodiazepines Scrn (Negative) Urine Cocaine Screen (Negative) U Marijuana (THC) Screen (Negative) SARS-CoV-2 (PCR) Positive H (Negative) 09/24/21 Range/Units 13:40 WBC (4.5-11.0) X10^3/uL RBC (4.5-5.9) X10^6/uL Hgb (13.5-17.5) g/dL Hct (41-53) % MCV (80-100) fL MCH (26-34) PG MCHC (30-36) % RDW (11.6-14.8) % Plt Count (150-400) X10^3/uL Neut % (Auto) (50-75) % Lymph % (Auto) (25-40) % [place] % (Auto) (3-14) % Eos % (Auto) (2-4) % Baso % (Auto) (0-2) % Neut # (Auto) (0199-8043) /uL Lymph # (Auto) (0948-9489) /uL [place] # (Auto) (0-900) /uL Eos # (Auto) (0-450) /uL Baso # (Auto) (0-100) /uL PT (10.1-12.7) SECONDS INR (0.9-1.3) APTT (26.4-36.2) SECONDS Sodium (137-145) mmol/L Potassium (3.4-5.1) mmol/L Chloride (98-107) mmol/L Carbon Dioxide (22-32) mmol/L BUN (9-20) mg/dL Creatinine (0.66-1.25) mg/dL Estimated GFR (>60) mL/min BUN/Creatinine Ratio (6-22) Glucose (80-110) mg/dL Calcium (8.4-10.2) mg/dL Total Bilirubin (0.2-1.3) mg/dL AST (17-59) IU/L ALT (<50) IU/L Alkaline Phosphatase (38-126) U/L Total Creatine Kinase (55-170) U/L CK-MB (CK-2) (<2.37) ng/mL CK-MB (CK-2) Rel Index (1.5-5.0) % Troponin I 0.446 H* (0.01-0.034) ng/mL NT-Pro-B Natriuret Pep (<450) pg/mL Total Protein (6.3-8.2) g/dL Albumin (3.5-5.0) g/dL Globulin (1.7-4.1) g/dL Albumin/Globulin Ratio (1.0-2.8) Urine RBC (0-5/HPF) Urine WBC (0-5/HPF) Ur Squamous Epith Cells (0-5/HPF) Urine Bacteria (None) Hyaline Casts (None) Granular Casts (None) Ur Culture Indicated? U Opiates 300ng/mL cut (Negative) Ur Oxycodone Screen (Negative) Urine Methadone Screen (Negative) Ur Barbiturates Screen (Negative) U Tricyclic Antidepress (Negative) Ur Phencyclidine Scrn (Negative) Ur Amphetamines Screen (Negative) U Methamphetamines Scrn (Negative) Ur MDMA Scrn (Ecstasy) (Negative) U Benzodiazepines Scrn (Negative) Urine Cocaine Screen (Negative) U Marijuana (THC) Screen (Negative) SARS-CoV-2 (PCR) (Negative) Urine Dip Bedside Urine Glucose Negative Bedside Urine Bilirubin - Negative Bedside Urine Ketone - Negative Urine Specific [place] 1.025 Bedside Urine Occult Blood ++ Bedside Urine pH 6.0 Bedside Urine Protein +++ 300 Bedside Urine Urobilinogen +/- 1mg Bedside Urine Nitrite - Negative Bedside Urine Leukocytes - Negative Esterase Imaging Data CT scan - head: Radiologist's Impression: [address] [address] [address] Scan Report Signed Patient: Robin Baugh MR#: [id number] : 1940 Acct:[id number] Age/Sex: 80 / M Date of Service: 09/24/21 Loc: ED Accession Number: [id number] ?? Procedure: CT head/brain wo con Ordering Provider: Shirley Rincon D.O. PROCEDURE:? CT HEAD/BRAIN WO CON ? INDICATIONS:? multiple falls, trouble moving last night, hypoglycemia ? TECHNIQUE:? Noncontrast 4.5 mm thick angled axial sections acquired from the foramen magnum to the vertex, with coronal and sagittal reformats.? For radiation dose reduction, the following was used:? automated exposure control, adjustment of mA and/or kV according to patient size.? ? COMPARISON:? None. ? FINDINGS:? Image quality:? Excellent.? ? CSF spaces:? Basal cisterns are patent.? No extra-axial fluid collections.? Ventricles are normal in size and shape.? ? Brain:? No midline shift.? No intracranial masses or hemorrhage.? [place]-white matter interface is normal.? Mild global cerebral volume loss and chronic microvascular ischemic change. ? Skull and face:? Calvarium and visualized facial bones are intact, without suspicious lesions.? ? Sinuses:? Visualized sinuses and mastoids are clear.? ? IMPRESSION:? No acute intracranial finding.? ? ? Dictated by: Parmjit Cooper M.D. on 09/24/2021 at 9:58 ? ? Approved by: Parmjit Cooper M.D. on 09/24/2021 at 10:02?? CTA - brain/neck: Radiologist's Impression: [place] [address] CT Scan Report Signed Patient: Robin Baugh MR#: [id number] : 1940 Acct:[id number] Age/Sex: 80 / M Date of Service: 09/24/21 Loc: ED Accession Number: [id number] ?? Procedure: CT angio head and neck Ordering Provider: Shirley Rincon D.O. PROCEDURE:? CT ANGIO HEAD AND NECK ? INDICATIONS:? hypoglycemia, trouble walking, falls. ? TECHNIQUE:? Noncontrast images were performed earlier in the day and not repeated.? ? After the administration of intravenous contrast, 1 mm thick sections acquired from the aortic arch through the [place] of [place].? Post-contrast 4.5 mm thick sections then re-acquired from the foramen magnum to the vertex.? 3-dimensional qyknylq-qszkujoog-cosfkiusad (MIP) and/or volume rendering reformats were acquired of the central intracranial vasculature and neck separately. For radiation dose reduction, the following was used:? automated exposure control, adjustment of mA and/or kV according to patient size.? ? COMPARISON:? None. ? FINDINGS:? Image quality:? Excellent.? ? BRAIN:? CSF spaces:? Ventricles are normal in size and shape.? Basal cisterns are patent.? No extra-axial fluid collections.? ? Brain:? No midline shift.? No intracranial bleeds or masses.? [place]-white matter interface appears intact.? ? Skull and face:? Calvarium and facial bones appear intact, without suspicious lesions.? Orbits appear normal.? ? Sinuses:? Sinuses and mastoids are clear.? ? HEAD CT ANGIOGRAPHY:? Anterior circulation:? Intracranial internal carotid arteries demonstrate generalized atherosclerotic calcification, with up to 70% stenosis on each side a.? The flow within the paired anterior cerebral arteries is normal and symmetric.? The flow within the middle cerebral arteries is normal and symmetric.? The anterior communicating artery is seen.? No aneurysms are seen.? ? Posterior circulation:? Visualized portions of the vertebral arteries demonstrate normal caliber, and join to form a normal appearing basilar artery.? Flow within the posterior cerebral arteries is normal and symmetric.? No aneurysms are seen.? ? NECK CT ANGIOGRAPHY:? Carotid system:? The great vessels demonstrate a conventional anatomy as they arise from the aortic arch.? The origins of the common carotid arteries appear patent.? The common carotid arteries demonstrate normal caliber and courses.? The bifurcation regions demonstrate atherosclerotic calcification and irregularity, yet without a hemodynamically significant stenosis. The more distal internal carotid arteries demonstrate normal course and caliber.? ? Posterior circulation:? The origins of the vertebral arteries both appear widely patent.? The more superior extracranial portions of both vertebral arteries also demonstrate normal courses and calibers.? They join to form a normal appearing basilar artery.? ? Soft tissues:? Visualized neck soft tissues demonstrate no suspicious abnormalities.? ? Bones:? No suspicious bony lesions.? Visualized cervical spine appears normally aligned.? Moderate to prominent cervical spine degenerative changes are seen.? There is a degree of fusion seen involving the C3-C4 level.? Moderate to severe disc space narrowing can be seen at C6-C7 and C7-T1.? Relatively prominent bridging anterior osteophytes are seen C6 through T3. ? ? IMPRESSION:? Within the arteries of the neck, no hemodynamically significant stenosis can be seen. ? ? Dense calcification and irregularity can be seen involving the intracranial internal carotid arteries, with up to 70% narrowing on each side.? No additional significant intracranial arterial abnormality is seen.? Incidental note is made of: Moderate to prominent cervical spine degenerative change ? Any quantitative measurements of stenosis were performed using NASCET criteria.? ? ? Dictated by: Iggy Hawkins M.D. on 09/24/2021 at 9:07 ? ? Approved by: Iggy Hawkins M.D. on 09/24/2021 at 9:12?? ECG Data Attestation: I personally reviewed and interpreted this ECG as follows: Prior ECG tracings: available for review Interpretation: Sinus rhythm rate of 64 DE 168 QRS of 108 QTC 462. Patient has prior from 11/23/2018 with no acute changes. Patient has Q-wave in 3 and AVF with RSR in 2 EKG2. Sinus rhythm, rate of 60 DE 168 QRS of 114 and QTC 448. Patient has Q-wave in lead 3 AVF. Patient's EKG appears similar to prior from today and 2019. MDM Narrative Medical decision making narrative: This is an 80-year-old male with complaint of multiple falls last night, no lateralizing deficits and NIH is 0 today. Patient was hypoglycemic on arrival with EMS which may have been contributing to his falls last night. Patient's head neck CTA shows bilateral intracranial stenosis but with negative and H patient was not activated as a code stroke. Patient after was noted to be COVID positive and also has an elevated troponin although no shortness of breath or acute chest pain today or last night appreciated. There was some lab abnormalities 2nd troponin was negative, it was repeated a 3rd time and is still positive and trending upwards, patient does have some chronic kidney disease but no acute worsening. Cardiology was consulted they do not recommend initiating heparin at this time but monitoring and echo. Patient has not been hypoxic here in the department but plan for chest pain office with positive COVID infection and no acute pneumonia appreciated or tachycardia. Patient's primary care service was consulted and they accept. Discharge Plan Departure Patient Disposition: Admitted As Inpatient Clinical Impression: COVID-19 virus infection, Non-ST elevation NV (NSTEMI) Admit Date/Time: 09/24/21 16:36 Admit Provider: Kelsey Peña
[2021-09-24 08:56] LABS: Add Manual Diff / Slide Review NO; Basophils Absolute Auto 0 /uL (0-100); Basophils Percent Auto 0.4 % (0-2); Eosinophils Absolute Auto 0 /uL (0-450); Eosinophils Percent Auto 0.2 % (2-4); Hematocrit 33.1 % (41-53); Hemoglobin 10.9 g/dL (13.5-17.5); Lymphocytes Absolute Auto 700 /uL (1100-4500); Lymphocytes Percent Auto 10.7 % (25-40); Mean Corpuscular Hemoglobin 28.9 PG (26-34); Mean Corpuscular Volume 87.6 fL (80-100); Monocytes Absolute Auto 700 /uL (0-900); Monocytes Percent Auto 10.7 % (3-14); Neutrophils Absolute Auto 4800 /uL (1500-7000); Platelet Count 210 X10^3/uL (150-400); Red Blood Cell Count 3.78 X10^6/uL (4.5-5.9); Red Cell Distribution Width 14.5 % (11.6-14.8); White Blood Cell Count 6.1 X10^3/uL (4.5-11.0)
--- NOTE | 2021-09-24 09:03 | DI.CT.S_ITS ---
PROCEDURE: CT HEAD/BRAIN WO CON INDICATIONS: multiple falls, trouble moving last night, hypoglycemia TECHNIQUE: Noncontrast 4.5 mm thick angled axial sections acquired from the foramen magnum to the vertex, with coronal and sagittal reformats. For radiation dose reduction, the following was used: automated exposure control, adjustment of mA and/or kV according to patient size. COMPARISON: None. FINDINGS: Image quality: Excellent. CSF spaces: Basal cisterns are patent. No extra-axial fluid collections. Ventricles are normal in size and shape. Brain: No midline shift. No intracranial masses or hemorrhage. [place]-white matter interface is normal. Mild global cerebral volume loss and chronic microvascular ischemic change. Skull and face: Calvarium and visualized facial bones are intact, without suspicious lesions. Sinuses: Visualized sinuses and mastoids are clear. IMPRESSION: No acute intracranial finding. Dictated by: Parmjit Cooper M.D. on 09/24/2021 at 9:58 Approved by: Parmjit Cooper M.D. on 09/24/2021 at 10:02
--- NOTE | 2021-09-24 09:04 | DI.CT.S_ITS ---
PROCEDURE: CT ANGIO HEAD AND NECK INDICATIONS: hypoglycemia, trouble walking, falls. TECHNIQUE: Noncontrast images were performed earlier in the day and not repeated. After the administration of intravenous contrast, 1 mm thick sections acquired from the aortic arch through the [place] of [place]. Post-contrast 4.5 mm thick sections then re-acquired from the foramen magnum to the vertex. 3-dimensional jojpbvx-hqetaknot-esybzruwho (MIP) and/or volume rendering reformats were acquired of the central intracranial vasculature and neck separately. For radiation dose reduction, the following was used: automated exposure control, adjustment of mA and/or kV according to patient size. COMPARISON: None. FINDINGS: Image quality: Excellent. BRAIN: CSF spaces: Ventricles are normal in size and shape. Basal cisterns are patent. No extra-axial fluid collections. Brain: No midline shift. No intracranial bleeds or masses. [place]-white matter interface appears intact. Skull and face: Calvarium and facial bones appear intact, without suspicious lesions. Orbits appear normal. Sinuses: Sinuses and mastoids are clear. HEAD CT ANGIOGRAPHY: Anterior circulation: Intracranial internal carotid arteries demonstrate generalized atherosclerotic calcification, with up to 70% stenosis on each side a. The flow within the paired anterior cerebral arteries is normal and symmetric. The flow within the middle cerebral arteries is normal and symmetric. The anterior communicating artery is seen. No aneurysms are seen. Posterior circulation: Visualized portions of the vertebral arteries demonstrate normal caliber, and join to form a normal appearing basilar artery. Flow within the posterior cerebral arteries is normal and symmetric. No aneurysms are seen. NECK CT ANGIOGRAPHY: Carotid system: The great vessels demonstrate a conventional anatomy as they arise from the aortic arch. The origins of the common carotid arteries appear patent. The common carotid arteries demonstrate normal caliber and courses. The bifurcation regions demonstrate atherosclerotic calcification and irregularity, yet without a hemodynamically significant stenosis. The more distal internal carotid arteries demonstrate normal course and caliber. Posterior circulation: The origins of the vertebral arteries both appear widely patent. The more superior extracranial portions of both vertebral arteries also demonstrate normal courses and calibers. They join to form a normal appearing basilar artery. Soft tissues: Visualized neck soft tissues demonstrate no suspicious abnormalities. Bones: No suspicious bony lesions. Visualized cervical spine appears normally aligned. Moderate to prominent cervical spine degenerative changes are seen. There is a degree of fusion seen involving the C3-C4 level. Moderate to severe disc space narrowing can be seen at C6-C7 and C7-T1. Relatively prominent bridging anterior osteophytes are seen C6 through T3. IMPRESSION: Within the arteries of the neck, no hemodynamically significant stenosis can be seen. Dense calcification and irregularity can be seen involving the intracranial internal carotid arteries, with up to 70% narrowing on each side. No additional significant intracranial arterial abnormality is seen. Incidental note is made of: Moderate to prominent cervical spine degenerative change Any quantitative measurements of stenosis were performed using NASCET criteria. Dictated by: Iggy Hawkins M.D. on 09/24/2021 at 9:07 Approved by: Iggy Hawkins M.D. on 09/24/2021 at 9:12
[2021-09-24 09:08] LABS: Alanine Aminotransferase 19 IU/L (<50); Albumin 3.7 g/dL (3.5-5.0); Albumin Globulin Ratio 1.1 (1.0-2.8); Alkaline Phosphatase 61 U/L (38-126); Aspartate Aminotransferase 44 IU/L (17-59); BUN Creatinine Ratio 18.4 (6-22); Bilirubin Total 0.4 mg/dL (0.2-1.3); Blood Urea Nitrogen 25 mg/dL (9-20); Calcium 8.1 mg/dL (8.4-10.2); Carbon Dioxide 21 mmol/L (22-32); Chloride 104 mmol/L (98-107); Estimated Glomerular Filt Rate 52 mL/min (>60); Globulin 3.3 g/dL (1.7-4.1); Glucose 167 mg/dL (80-110); HEMOLYSIS 37 (0-50); Potassium 3.9 mmol/L (3.4-5.1); Sodium 135 mmol/L (137-145)
[2021-09-24 09:57] LABS: COVID19 -Nasal RAPID POSITIVE (Negative)
[2021-09-24] MEDS: atenoloL 50 MG TABLET PO (10:00)
[2021-09-24] MEDS: lisinopriL 20 MG TABLET PO (10:01)
[2021-09-24 10:03] LABS: UR Morphine/Opiate cutoff 300 Negative (Negative); Ur Creatinine Normal (Normal); Ur Specific Gravity Normal (Normal); Urine Amphetamines Negative (Negative); Urine Barbiturates Negative (Negative); Urine Benzodiazepines Negative (Negative); Urine Cocaine Negative (Negative); Urine MDMA Negative (Negative); Urine Methadone Negative (Negative); Urine Methamphetamines Negative (Negative); Urine Oxycodone Negative (Negative); Urine Phencyclidine Negative (Negative); Urine Tetrahydrocannabinol Negative (Negative); Urine Tricyclic Antidepressant Negative (Negative); Urine pH Normal (Normal)
[2021-09-24 10:22] LABS: Bacteria Urine Few (2-10); Granular Casts Urine 1-5/LPF; Hyaline Casts Urine 0-1/LPF; RBC Urine 0-1/HPF (0-5/HPF); Squamous Epithelial Cell Urine 0-1 /HPF (0-5/HPF); WBC Urine 0-1/HPF (0-5/HPF)
[2021-09-24 11:01] LABS: INR 1.2 (0.9-1.3); Prothrombin Time 12.9 SECONDS (10.1-12.7)
[2021-09-24 11:04] LABS: PTT Partial Thromboplastin Tim 36 SECONDS (26.4-36.2)
[2021-09-24 11:09] LABS: Creatine Kinase 609 U/L (55-170)
[2021-09-24 11:25] LABS: CKMB % Relative Index 1.4 % (1.5-5.0); Creatine Kinase MB 8.51 ng/mL (<2.37)
[2021-09-24] MEDS: ASPIRIN 81 MG CHEW TAB 324 MG PO (12:23)
--- NOTE | 2021-09-24 12:36 | DI.RAD.S_ITS ---
PROCEDURE: XR CHEST 1V INDICATIONS: + covid TECHNIQUE: One view of the chest was acquired. COMPARISON: [facility], CR, CHEST 2 VIEW, 06/04/2010, 9:54. [facility], CT, CT ANGIO HEAD AND NECK, 09/24/2021, 9:41. [facility], CT, CT HEAD/BRAIN WO CON, 09/24/2021, 9:41. [facility], CR, XR CHEST 1V, 11/23/2018, 16:13. FINDINGS: Surgical changes and devices: None. Lungs and pleura: On this semiupright portable chest examination, no large pneumothorax or large pleural effusions are seen. No focal infiltrates are seen. Low lung volumes are noted. This causes a crowded appearance to the lung markings and limits evaluation. Mediastinum: Mediastinal contours appear normal. Heart size is normal. Atherosclerotic calcification of the aortic arch is noted. Bones and chest wall: No suspicious bony lesions. Age-appropriate bony degenerative changes are seen. Overlying soft tissues appear unremarkable. IMPRESSION: Limited portable chest study, without focal infiltrates seen. Dictated by: Iggy Hawkins M.D. on 09/24/2021 at 12:01 Approved by: Iggy Hawkins M.D. on 09/24/2021 at 12:01
[2021-09-24 13:34] LABS: NT-proBNP (BNP-Adult 18+) 2920 pg/mL (<450)
[2021-09-24 14:13] LABS: Troponin I 0.446 ng/mL (0.01-0.034)
--- NOTE | 2021-09-24 16:32 | P.HP_ITS ---
History of Present Illness History of Present Illness Date Patient Seen: 09/24/21 Time Patient Seen: 16:32 Chief complaint: feels funny, trouble getting into bed, fell Narrative: Mr. Baugh is an 80-year-old male who was admitted from the ED secondary to weakness, hypoglycemia, and incidental COVID with elevated troponins. Reports that in the last few days he has been having multiple falls and kept falling when he was trying to get out of bed. [place] that his leg was not working very well. However, denied headache, neck or back pain, chest pain or shortness of breath. No nausea vomiting. No facial droop or difficulty with speech. No numbness or tingling. EMS did note a glucose of 40 upon arrival and after receiving glucose, it was 70 upon recheck. He is on a sulfonyurea. Vital signs upon arrival in the emergency department included a temperature of 98.5?, pulse 60, respirations 19, blood pressure 211/89, O2 saturation 97% on room air. Lab significant for a normocytic/normochromic anemia with a hemoglobin of 10.9/hematocrits 33.1. BUN and creatinine were slightly elevated but better than baseline for patient at 25 and 136, respectively. Creatinine baseline normally 1.5. Troponin I was found to be elevated at 0.260 upon recheck, 0.446. CK elevated at 609, CK-MB elevated at 8.51. BNP also elevated at 2 920. Notably, chest x-ray, CT head, and CTA head/neck were unremarkable. CTA head/neck did show 70% narrowing of the internal carotid arteries but no hemodynamically significant stenosis. EKG showed normal sinus rhythm with a ventricular rate of 64. No acute changes from 11/23/2018. Repeat EKG in the ED again showed no acute changes. Currently feeling fine, no chest pain or shortness of breath. Had a good appetite. Denies nausea. Denies weakness currently. Feels that he is urinating more but denies dysuria or abdominal pain. Past Medical History: Back injury (1969) Gastric ulcer, bleeding/anemia (06/2010) Coronary artery disease Hyperlipidemia Hypertension Diabetes mellitus type 2 Microalbuminuria CKD stage 3 GERD Degenerative joint disease BPH with urinary obstruction Insomnia Moderate intellectual disability Tobacco use disorder Obesity Squamous cell carcinoma, left ear Past Surgical History: Stents (01/2003) Left rotator cuff tear (02/2012) Squamous cell carcinoma repair, left ear, 08/08 Family History: Father: Deafness, Hypertension Social History: Marital Status: Single, lives with ex-girlfriend's son, Jose in apartment in [place] Occupation: not working Education: [employer] Patient History Medical History Dyslipidemia Hypertension Osteoarthritis Family & Social History Safety & Behavioral: Feels Safe in Current Yes Environment Been Physically Hurt or No Threatened By a Person Tobacco & Substance use: Smoking Status Former smoker alcohol intake former alcohol intake frequency 0-2 drinks per day Substance Use Type does not use Meds Home Medications and Allergies Home Medications Medication Instructions Recorded Confirmed Type atenolol 50 mg tablet 50 mg PO DAILY #0 06/03/10 09/24/21 History alfuzosin 10 mg tablet,extended 10 mg PO DAILY 11/23/18 09/24/21 History release 24 hr furosemide 20 mg tablet 40 mg PO DAILY 11/23/18 09/24/21 History glimepiride 4 mg tablet 4 mg PO DAILY 11/23/18 09/24/21 History lisinopril 20 mg tablet 20 mg PO DAILY 11/23/18 09/24/21 History omeprazole 20 mg capsule,delayed 20 mg PO BID 11/23/18 09/24/21 History release simvastatin 40 mg tablet 40 mg PO DAILY 11/23/18 09/24/21 History melatonin 5 mg tablet 5 mg PO BEDTIME 09/24/21 09/24/21 History potassium chloride 10 mEq 10 meq PO DAILY 09/24/21 09/24/21 History tablet,extended release(part/cryst) trazodone 100 mg tablet 100 mg PO BEDTIME 09/24/21 09/24/21 History Allergies Allergy/AdvReac Type Severity Reaction Status Date / Time No Known Drug Allergies Allergy Verified 09/24/21 08:38 Review of Systems Review of Systems Narrative: All remaining ROS were reviewed and negative except as addressed. Exam Vital Signs (past 8 hours): - 09/24/21 08:49 09/24/21 09:00 09/24/21 09:21 Pulse Rate 59 L 60 61 Respiratory Rate 27 H 33 H Blood Pressure 207/95 H 180/89 H Pulse Oximetry 99 99 99 09/24/21 09:30 09/24/21 09:31 09/24/21 09:56 Pulse Rate 60 62 68 Respiratory Rate 33 H 24 19 Blood Pressure 206/92 H 215/153 H Pulse Oximetry 99 99 96 09/24/21 10:00 09/24/21 10:01 09/24/21 10:30 Pulse Rate 60 63 61 Respiratory Rate 20 27 H 19 Blood Pressure 209/120 H Pulse Oximetry 98 99 98 09/24/21 10:31 09/24/21 11:00 09/24/21 11:59 Pulse Rate 61 62 58 L Respiratory Rate 18 24 Blood Pressure 207/78 H Pulse Oximetry 98 99 98 09/24/21 12:00 09/24/21 12:11 09/24/21 12:30 Pulse Rate 56 L 53 L 59 L Respiratory Rate 19 18 20 Blood Pressure 195/86 H Pulse Oximetry 98 99 98 09/24/21 13:14 09/24/21 13:30 09/24/21 14:11 Pulse Rate 56 L 66 Respiratory Rate 22 22 Blood Pressure Pulse Oximetry 99 100 09/24/21 14:12 09/24/21 14:30 09/24/21 14:31 Pulse Rate 54 L 48 L 48 L Respiratory Rate 22 19 18 Blood Pressure 176/79 H 161/72 H Pulse Oximetry 98 98 97 09/24/21 15:00 09/24/21 15:01 09/24/21 15:30 Pulse Rate 51 L 48 L 50 L Respiratory Rate 19 19 17 Blood Pressure 157/71 H Pulse Oximetry 98 98 98 09/24/21 15:31 09/24/21 16:00 Pulse Rate 48 L 48 L Respiratory Rate 17 16 Blood Pressure 152/68 H Pulse Oximetry 98 99 Oxygen Delivery Method Room Air Narrative Exam Narrative: GENERAL: Alert and oriented, appearing stated age and in no acute distress. HEENT: Head normocephalic/atraumatic. Extraocular movements intact. Well- healed surgical scar, right ear, upper lobe missing. LUNGS: Clear to ausculation bilaterally, no wheezes, rhonchi or rales. CV: Normal S1 and S2 with regular rate and rhythm, no audible murmurs, rubs or gallops. ABDOMEN: Soft, non-tender, non-distended, no organomegaly. Positive bowel sounds. EXTREMITIES: No clubbing, cyanosis, or edema. NEURO: Cranial nerves II through XII grossly intact, no focal deficits. PSYCH: Alert and oriented x 3. SKIN: No concerning lesions. Objective Labs Result Diagrams: 09/24/21 08:48 09/24/21 08:48 Labs: Laboratory Results - last 24 hr 09/24/21 09/24/21 09/24/21 08:48 08:48 09:03 WBC 6.1 RBC 3.78 L Hgb 10.9 L Hct 33.1 L MCV 87.6 MCH 28.9 MCHC 33.0 RDW 14.5 Plt Count 210 Neut % (Auto) 78.0 H Lymph % (Auto) 10.7 L [place] % (Auto) 10.7 Eos % (Auto) 0.2 L Baso % (Auto) 0.4 Neut # (Auto) 4800 Lymph # (Auto) 700 L [place] # (Auto) 700 Eos # (Auto) 0 Baso # (Auto) 0 PT INR APTT Sodium 135 L Potassium 3.9 Chloride 104 Carbon Dioxide 21 L BUN 25 H Creatinine 1.36 H Estimated GFR 52 L BUN/Creatinine Ratio 18.4 Glucose 167 H Calcium 8.1 L Total Bilirubin 0.4 AST 44 ALT 19 Alkaline Phosphatase 61 Total Creatine Kinase 609 H CK-MB (CK-2) 8.51 H CK-MB (CK-2) Rel Index 1.4 L Troponin I 0.260 H* NT-Pro-B Natriuret Pep Total Protein 7.0 Albumin 3.7 Globulin 3.3 Albumin/Globulin Ratio 1.1 Urine RBC Urine WBC Ur Squamous Epith Cells Urine Bacteria Hyaline Casts Granular Casts Ur Culture Indicated? U Opiates 300ng/mL cut Ur Oxycodone Screen Urine Methadone Screen Ur Barbiturates Screen U Tricyclic Antidepress Ur Phencyclidine Scrn Ur Amphetamines Screen U Methamphetamines Scrn Ur MDMA Scrn (Ecstasy) U Benzodiazepines Scrn Urine Cocaine Screen U Marijuana (THC) Screen SARS-CoV-2 (PCR) 09/24/21 09/24/21 09/24/21 09:03 09:20 09:20 WBC RBC Hgb Hct MCV MCH MCHC RDW Plt Count Neut % (Auto) Lymph % (Auto) [place] % (Auto) Eos % (Auto) Baso % (Auto) Neut # (Auto) Lymph # (Auto) [place] # (Auto) Eos # (Auto) Baso # (Auto) PT INR APTT Sodium Potassium Chloride Carbon Dioxide BUN Creatinine Estimated GFR BUN/Creatinine Ratio Glucose Calcium Total Bilirubin AST ALT Alkaline Phosphatase Total Creatine Kinase CK-MB (CK-2) CK-MB (CK-2) Rel Index Troponin I NT-Pro-B Natriuret Pep 2920 H Total Protein Albumin Globulin Albumin/Globulin Ratio Urine RBC 0-1/hpf Urine WBC 0-1/hpf Ur Squamous Epith Cells 0-1 /hpf Urine Bacteria Few (2-10) H Hyaline Casts 0-1/lpf Granular Casts 1-5/lpf Ur Culture Indicated? Culture not indicate U Opiates 300ng/mL cut Negative Ur Oxycodone Screen Negative Urine Methadone Screen Negative Ur Barbiturates Screen Negative U Tricyclic Antidepress Negative Ur Phencyclidine Scrn Negative Ur Amphetamines Screen Negative U Methamphetamines Scrn Negative Ur MDMA Scrn (Ecstasy) Negative U Benzodiazepines Scrn Negative Urine Cocaine Screen Negative U Marijuana (THC) Screen Negative SARS-CoV-2 (PCR) 09/24/21 09/24/21 09/24/21 09:25 10:27 13:40 WBC RBC Hgb Hct MCV MCH MCHC RDW Plt Count Neut % (Auto) Lymph % (Auto) [place] % (Auto) Eos % (Auto) Baso % (Auto) Neut # (Auto) Lymph # (Auto) [place] # (Auto) Eos # (Auto) Baso # (Auto) PT 12.9 H INR 1.2 APTT 36 D Sodium Potassium Chloride Carbon Dioxide BUN Creatinine Estimated GFR BUN/Creatinine Ratio Glucose Calcium Total Bilirubin AST ALT Alkaline Phosphatase Total Creatine Kinase CK-MB (CK-2) CK-MB (CK-2) Rel Index Troponin I 0.446 H* NT-Pro-B Natriuret Pep Total Protein Albumin Globulin Albumin/Globulin Ratio Urine RBC Urine WBC Ur Squamous Epith Cells Urine Bacteria Hyaline Casts Granular Casts Ur Culture Indicated? U Opiates 300ng/mL cut Ur Oxycodone Screen Urine Methadone Screen Ur Barbiturates Screen U Tricyclic Antidepress Ur Phencyclidine Scrn Ur Amphetamines Screen U Methamphetamines Scrn Ur MDMA Scrn (Ecstasy) U Benzodiazepines Scrn Urine Cocaine Screen U Marijuana (THC) Screen SARS-CoV-2 (PCR) Positive H Assessment & Plan Assessment & Plan narrative: 1. Rule out [place] Plan: Serial troponins overnight with echo and stress test in the morning. Telemetry. Nitro/morphine/oxygen as needed. Will change simvastatin to atorvastatin 80 mg PO daily. Will restart home blood pressure medications. Labetalol 20 mg IV x 1 now. Will start ASA 81 mg PO daily. Cardiology was consulted in ER and secondary to age and chronic medical conditions, did not recommend any drips or more invasive therapy. Will trend potassium and magnesium and keep levels greater than 4.0/2.0, respectively. 2. Weakness, profound, likely multifactorial from chronic conditions, possible [place], and COVID Plan: Supportive therapy, PT. Please see #1. 3. COVID, mild Plan: Remdesivir. Supportive care with oxygen supplementation as needed. 4. Hypertension, chronic, uncontrolled Plan: Will restart home atenolol 50 mg p.o. q.day, lisinopril 20 mg p.o. q.day, and furosemide 40 mg p.o. q.day. Please see #1. 5. Anemia, normocytic/normochromic, chronic at basline Plan: Likely anemia of chronic disease, will trend labs. 6. Diabetes mellitus 2, chronic Plan: Patient had an episode of hypoglycemia just prior to presentation. Will monitor blood sugars closely and start SSI. Have discontinued sulfonylurea. 7. Chronic renal failure, Stage G3a Plan: Overall, creatinine and GFR are improved. Will trend labs. 8. Hyperlipidemia, chronic Plan: In setting of possible [place], will change simvastatin to atorvastatin 80 mg p.o. q.day. 9. BPH, chronic Plan: Continue home alfuzosin 10 mg p.o. q.day 10. Insomnia, chronic Plan: Continue home trazodone 100 mg p.o. q.h.s. 11. Polyuria, acute Plan: UA did not show infection upon admission. Will repeat UA in the morning due to patient's complaint of polyuria. Could also be due to acute stress, diabetes, etc. FEN: PO fluids, carb consistent diet DVT prophylaxis: Lovenox GI prophylaxis: Protonix COVID: Positive Code: DNR/DNI Disposition: Anticipate 2 nights.
--- NOTE | 2021-09-24 18:19 | PC.NURSE ---
Pt arrived on the unit from the ED around 1520 following a fall at home this am. He is A&Ox3 but seems to be confused at times, he has displayed some impulsivity and poor safety awareness, bed alarm is set. He is COVID positive and his troponin was .446. He is on room air, lung sounds are clear, sinus lisa on tele. Blood pressures have been elevated with systolics in the 200s. Pt has a history of psoriasis and has dry skin with scattered scabs to his face, bilateral arms, and L leg, he has fungus between all of his toes and is missing part of his left ear from the surgical removal of a tumor. Pt had been incontinent when he arrived but has since been calling appropriately to void, he is resting in bed comfortably at this time.
[2021-09-24] MEDS: REMDESIVIR 200 MG in SODIUM CHLORIDE 0.9% 210 ML 250 MG IV (18:36)
[2021-09-24] MEDS: ACETAMINOPHEN 325 MG TABLET 650 MG PO ×2 (18:37→23:30)
--- NOTE | 2021-09-24 18:47 | PC.NURSE ---
Patients blood pressure down to 190/73, from systolic of 200s in ER. Patient is alert and oriented x3. He is incontinent of urine , but also voices when he needs to have to use the bathroom. His blood sugar down in the ER was 130. Patient ate some dinner. He is getting routine tropinin checks. Tylenol given and remdesvir started for Covid +. Lung sounds are clear and patient is on RA.
[2021-09-24 19:32] LABS: Troponin I 0.514 ng/mL (0.01-0.034)
[2021-09-24] MEDS: ATORVASTATIN 20 MG TABLET 80 MG PO (20:45)
[2021-09-24] MEDS: Alfuzosin 10 mg tablet extended release 24 hr 10 EACH PO (21:10)
[2021-09-24] MEDS: IBUPROFEN 600 MG TABLET PO (21:10)
[2021-09-24] MEDS: TRAZODONE 100 MG TABLET PO (21:10)
[2021-09-25] VITALS (8 sets, daily range): BP systolic 155–186; BP diastolic 50–79; PULSE 48–55; RESP 16–17; TEMP 36.2–36.5; O2SAT 93–99
[2021-09-25 00:39] LABS: Troponin I 0.611 ng/mL (0.01-0.034)
--- NOTE | 2021-09-25 03:30 | PC.NURSE ---
Shift Note: Patient was alert and orientedx3, denies any pain/discomfort, no signs of cardiorespiratory distress, vital signs are stable, with episode of high SBP >180s and bradycardia HR 38-40s, with trending up troponin level, Dr Pearl notified and ordered PRN IV hydralazine and continue to monitor the patient. Patient was able to get up from the bed with one person assist to use the bathroom/bedside commode. Safety precautions maintained all times. Call mckeon within reach and instructed patient to call whenever he needs to use the bathroom, patient verbalized understanding. Will continue to monitor.
[2021-09-25 05:41] LABS: Add Manual Diff / Slide Review NO; Basophils Absolute Auto 0 /uL (0-100); Basophils Percent Auto 0.8 % (0-2); Eosinophils Absolute Auto 200 /uL (0-450); Hematocrit 33.1 % (41-53); Hemoglobin 11.1 g/dL (13.5-17.5); Lymphocytes Absolute Auto 1300 /uL (1100-4500); Lymphocytes Percent Auto 23.8 % (25-40); Mean Corpuscular HGB Conc 33.5 % (30-36); Mean Corpuscular Hemoglobin 28.8 PG (26-34); Mean Corpuscular Volume 86.1 fL (80-100); Monocytes Absolute Auto 700 /uL (0-900); Monocytes Percent Auto 12.7 % (3-14); Neutrophils Absolute Auto 3300 /uL (1500-7000); Neutrophils Percent Auto 59.7 % (50-75); Platelet Count 200 X10^3/uL (150-400); Red Blood Cell Count 3.85 X10^6/uL (4.5-5.9); Red Cell Distribution Width 14.3 % (11.6-14.8); White Blood Cell Count 5.6 X10^3/uL (4.5-11.0)
[2021-09-25 06:00] LABS: Magnesium 1.9 mg/dL (1.6-2.3); Phosphorous 2.9 mg/dL (2.3-3.7)
[2021-09-25] MEDS: IBUPROFEN 600 MG TABLET PO ×3 (06:00→21:09)
[2021-09-25] MEDS: PANTOPRAZOLE DR 20 MG TABLET PO (06:00)
[2021-09-25] MEDS: ACETAMINOPHEN 325 MG TABLET 650 MG PO ×2 (06:00→17:30)
[2021-09-25 06:05] LABS: NT-proBNP (BNP-Adult 18+) 10500 pg/mL (<450)
--- NOTE | 2021-09-25 08:02 | P.PN_ITS ---
Subjective Subjective Date Patient Seen: 09/25/21 Time Patient Seen: 08:02 Interval history: Uneventful night. Patient was hypertensive overnight but also bradycardic, hydralazine given with improvement. Patient continues to deny chest pain or dyspnea. Reports that he has been up to the [facility]. Exam Vital Signs (past 8 hours): - 09/25/21 01:00 09/25/21 03:46 Temperature 97.2 F L 97.4 F L Pulse Rate 53 L 53 L Respiratory Rate 16 17 Blood Pressure 161/79 H 162/50 H Pulse Oximetry 93 98 Oxygen Flow Rate 0 0 Oxygen Delivery Method Room Air Oxygen Flow Rate 0 Narrative Exam Narrative: GENERAL:? Alert and oriented, appearing stated age and in no acute distress. HEENT:? Head normocephalic/atraumatic.? Extraocular movements intact.? Well- healed surgical scar, right ear, upper lobe missing. LUNGS:? Clear to ausculation bilaterally, no wheezes, rhonchi or rales. CV:? Normal S1 and S2 with regular rate and rhythm, no audible murmurs, rubs or gallops. ABDOMEN:? Soft, non-tender, non-distended, no organomegaly.? Positive bowel sounds. EXTREMITIES:? No clubbing, cyanosis, or edema. NEURO:? Cranial nerves II through XII grossly intact, no focal deficits. PSYCH:? Alert and oriented x 3. SKIN:? No concerning lesions. Objective Labs Result Diagrams: 09/25/21 04:40 09/24/21 08:48 Labs: Laboratory Results - last 24 hr 09/24/21 09/24/21 09/24/21 08:48 08:48 09:03 WBC 6.1 RBC 3.78 L Hgb 10.9 L Hct 33.1 L MCV 87.6 MCH 28.9 MCHC 33.0 RDW 14.5 Plt Count 210 Neut % (Auto) 78.0 H Lymph % (Auto) 10.7 L [place] % (Auto) 10.7 Eos % (Auto) 0.2 L Baso % (Auto) 0.4 Neut # (Auto) 4800 Lymph # (Auto) 700 L [place] # (Auto) 700 Eos # (Auto) 0 Baso # (Auto) 0 PT INR APTT Sodium 135 L Potassium 3.9 Chloride 104 Carbon Dioxide 21 L BUN 25 H Creatinine 1.36 H Estimated GFR 52 L BUN/Creatinine Ratio 18.4 Glucose 167 H Calcium 8.1 L Phosphorus Magnesium Total Bilirubin 0.4 AST 44 ALT 19 Alkaline Phosphatase 61 Total Creatine Kinase 609 H CK-MB (CK-2) 8.51 H CK-MB (CK-2) Rel Index 1.4 L Troponin I 0.260 H* NT-Pro-B Natriuret Pep Total Protein 7.0 Albumin 3.7 Globulin 3.3 Albumin/Globulin Ratio 1.1 Urine RBC Urine WBC Ur Squamous Epith Cells Urine Bacteria Hyaline Casts Granular Casts Ur Culture Indicated? U Opiates 300ng/mL cut Ur Oxycodone Screen Urine Methadone Screen Ur Barbiturates Screen U Tricyclic Antidepress Ur Phencyclidine Scrn Ur Amphetamines Screen U Methamphetamines Scrn Ur MDMA Scrn (Ecstasy) U Benzodiazepines Scrn Urine Cocaine Screen U Marijuana (THC) Screen SARS-CoV-2 (PCR) 09/24/21 09/24/21 09/24/21 09:03 09:20 09:20 WBC RBC Hgb Hct MCV MCH MCHC RDW Plt Count Neut % (Auto) Lymph % (Auto) [place] % (Auto) Eos % (Auto) Baso % (Auto) Neut # (Auto) Lymph # (Auto) [place] # (Auto) Eos # (Auto) Baso # (Auto) PT INR APTT Sodium Potassium Chloride Carbon Dioxide BUN Creatinine Estimated GFR BUN/Creatinine Ratio Glucose Calcium Phosphorus Magnesium Total Bilirubin AST ALT Alkaline Phosphatase Total Creatine Kinase CK-MB (CK-2) CK-MB (CK-2) Rel Index Troponin I NT-Pro-B Natriuret Pep 2920 H Total Protein Albumin Globulin Albumin/Globulin Ratio Urine RBC 0-1/hpf Urine WBC 0-1/hpf Ur Squamous Epith Cells 0-1 /hpf Urine Bacteria Few (2-10) H Hyaline Casts 0-1/lpf Granular Casts 1-5/lpf Ur Culture Indicated? Culture not indicate U Opiates 300ng/mL cut Negative Ur Oxycodone Screen Negative Urine Methadone Screen Negative Ur Barbiturates Screen Negative U Tricyclic Antidepress Negative Ur Phencyclidine Scrn Negative Ur Amphetamines Screen Negative U Methamphetamines Scrn Negative Ur MDMA Scrn (Ecstasy) Negative U Benzodiazepines Scrn Negative Urine Cocaine Screen Negative U Marijuana (THC) Screen Negative SARS-CoV-2 (PCR) 09/24/21 09/24/21 09/24/21 09:25 10:27 12:10 WBC RBC Hgb Hct MCV MCH MCHC RDW Plt Count Neut % (Auto) Lymph % (Auto) [place] % (Auto) Eos % (Auto) Baso % (Auto) Neut # (Auto) Lymph # (Auto) [place] # (Auto) Eos # (Auto) Baso # (Auto) PT 12.9 H INR 1.2 APTT 36 D Sodium Potassium Chloride Carbon Dioxide BUN Creatinine Estimated GFR BUN/Creatinine Ratio Glucose Calcium Phosphorus Magnesium Total Bilirubin AST ALT Alkaline Phosphatase Total Creatine Kinase CK-MB (CK-2) CK-MB (CK-2) Rel Index Troponin I Cancelled NT-Pro-B Natriuret Pep Total Protein Albumin Globulin Albumin/Globulin Ratio Urine RBC Urine WBC Ur Squamous Epith Cells Urine Bacteria Hyaline Casts Granular Casts Ur Culture Indicated? U Opiates 300ng/mL cut Ur Oxycodone Screen Urine Methadone Screen Ur Barbiturates Screen U Tricyclic Antidepress Ur Phencyclidine Scrn Ur Amphetamines Screen U Methamphetamines Scrn Ur MDMA Scrn (Ecstasy) U Benzodiazepines Scrn Urine Cocaine Screen U Marijuana (THC) Screen SARS-CoV-2 (PCR) Positive H 09/24/21 09/24/21 09/24/21 13:40 18:22 23:59 WBC RBC Hgb Hct MCV MCH MCHC RDW Plt Count Neut % (Auto) Lymph % (Auto) [place] % (Auto) Eos % (Auto) Baso % (Auto) Neut # (Auto) Lymph # (Auto) [place] # (Auto) Eos # (Auto) Baso # (Auto) PT INR APTT Sodium Potassium Chloride Carbon Dioxide BUN Creatinine Estimated GFR BUN/Creatinine Ratio Glucose Calcium Phosphorus Magnesium Total Bilirubin AST ALT Alkaline Phosphatase Total Creatine Kinase CK-MB (CK-2) CK-MB (CK-2) Rel Index Troponin I 0.446 H* 0.514 H* 0.611 H* NT-Pro-B Natriuret Pep Total Protein Albumin Globulin Albumin/Globulin Ratio Urine RBC Urine WBC Ur Squamous Epith Cells Urine Bacteria Hyaline Casts Granular Casts Ur Culture Indicated? U Opiates 300ng/mL cut Ur Oxycodone Screen Urine Methadone Screen Ur Barbiturates Screen U Tricyclic Antidepress Ur Phencyclidine Scrn Ur Amphetamines Screen U Methamphetamines Scrn Ur MDMA Scrn (Ecstasy) U Benzodiazepines Scrn Urine Cocaine Screen U Marijuana (THC) Screen SARS-CoV-2 (PCR) 09/25/21 09/25/21 04:40 04:40 WBC 5.6 RBC 3.85 L Hgb 11.1 L Hct 33.1 L MCV 86.1 MCH 28.8 MCHC 33.5 RDW 14.3 Plt Count 200 Neut % (Auto) 59.7 Lymph % (Auto) 23.8 L [place] % (Auto) 12.7 Eos % (Auto) 3.0 Baso % (Auto) 0.8 Neut # (Auto) 3300 Lymph # (Auto) 1300 [place] # (Auto) 700 Eos # (Auto) 200 Baso # (Auto) 0 PT INR APTT Sodium Potassium Chloride Carbon Dioxide BUN Creatinine Estimated GFR BUN/Creatinine Ratio Glucose Calcium Phosphorus 2.9 Magnesium 1.9 Total Bilirubin AST ALT Alkaline Phosphatase Total Creatine Kinase CK-MB (CK-2) CK-MB (CK-2) Rel Index Troponin I NT-Pro-B Natriuret Pep 94397 H Total Protein Albumin Globulin Albumin/Globulin Ratio Urine RBC Urine WBC Ur Squamous Epith Cells Urine Bacteria Hyaline Casts Granular Casts Ur Culture Indicated? U Opiates 300ng/mL cut Ur Oxycodone Screen Urine Methadone Screen Ur Barbiturates Screen U Tricyclic Antidepress Ur Phencyclidine Scrn Ur Amphetamines Screen U Methamphetamines Scrn Ur MDMA Scrn (Ecstasy) U Benzodiazepines Scrn Urine Cocaine Screen U Marijuana (THC) Screen SARS-CoV-2 (PCR) PFSH Medical History Dyslipidemia Hypertension Osteoarthritis Social History details: has girlfriend of 3 years household members: friend(s) Smoking Status: Former smoker alcohol intake: former substance use type: does not use Assessment & Plan Assessment & Plan narrative: 1. Rule out IN -Troponins rising overnight, secondary to demand ischemia vs. acute coronary syndrome vs. heart failure, vs. other -Asymptomatic Plan: Will continue to trend troponins until they start to drop. Repeat EKG today. Cardiology requested to postpone echo secondary to positive COVID status. Stress test pending.? Continue telemetry.? Nitro/morphine/oxygen as nee ded.? Continue atorvastatin 80 mg PO daily.? Will restart home BP medications. Continue ASA 81 mg PO daily.? Per cardiology, secondary to age and chronic medical conditions, not proceeding with drips or invasive therapy.? Will replete potassium and magnesium and keep levels greater than 4.0/2.0, respectively. 2. Weakness, profound, likely multifactorial from chronic conditions, possible IN, and COVID Plan:? Continue supportive therapy, PT.? Please see #1. 3. COVID, mild Plan:? Remdesivir.? Supportive care with oxygen supplementation as needed. 4. Hypertension, chronic, uncontrolled Plan:? Will restart home atenolol 50 mg p.o. q.day, lisinopril 20 mg p.o. q.day, and furosemide 40 mg p.o. q.day (giving IV today).? Please see #1. 5. Elevated BNP, suspect secondary to heart failure Plan: Lasix 40 mg IV x 1 now. Will trend labs. 6. Anemia, normocytic/normochromic, chronic at baseline Plan: Likely anemia of chronic disease, will trend labs. 7. Diabetes mellitus 2, chronic Plan:? Patient had an episode of hypoglycemia just prior to presentation.? Will monitor blood sugars closely and start SSI.? Have discontinued sulfonylurea.? 8. Chronic renal failure, Stage G3a Plan:? Overall, creatinine and GFR are improved.? Will trend labs. 9. Hyperlipidemia, chronic Plan:? In setting of possible IN, have changed simvastatin to atorvastatin 80 mg p.o. q.day. 10. BPH, chronic Plan: Continue home alfuzosin 10 mg p.o. q.day 11. Insomnia, chronic Plan:? Continue home trazodone 100 mg p.o. q.h.s. 12.? Polyuria, acute Plan:? UA did not show infection upon admission.? Awaiting repeat UA due to patient's complaint of polyuria.? Could also be due to acute stress, diabetes, etc. FEN:? PO fluids, carb consistent diet DVT prophylaxis:? Lovenox GI prophylaxis:? Protonix COVID:? Positive Code: DNR/DNI Disposition:? Anticipate at least one more night. Quality VTE Deep Vein Thrombosis/Pulmonary Embolism Present on Admission: No
[2021-09-25] MEDS: ENOXAPARIN 40 MG/0.4 ML SYRINGE SUBCUT (09:11)
[2021-09-25] MEDS: lisinopriL 20 MG TABLET PO (09:11)
[2021-09-25] MEDS: ASPIRIN EC 81 MG TABLET PO (09:11)
--- NOTE | 2021-09-25 09:45 | PT-IP ANOTE ---
reviewed EMR. pt with increasing troponin level. talked with nurse to ask for clearance from the doctor for PT eval. nurse stated that she will let the doctor know and pt also has really low HR. will follow up.
--- NOTE | 2021-09-25 10:50 | CM.DANOTE ---
DCP Note Payor: [employer] PCP: Dr. Plummer Pt is a 80 y.o. M admitted from the ED secondary to weakness, hypoglycemia, and incidental COVID with elevated troponins. Upon arrival to the hospital, EMS did note a glucose level of 40. Pt was given glucose and level went up to 70. Pt to recieve stress test and echo this morning. MD wants to rule out MA due to the weakness. Pt is to start on Remdesivir. Blood glucoses to be monitored closely. Trend labs. DCP attempted to call pt in pt room but unable to get in touch with him. DCP called pt emergency contact, Haseeb, to inquire about patient baseline level. Per Haseeb, pt lives in apartments behind the hospital. Haseeb states that he has been staying with him recently and helping him when needed. Pt still drives POV to the grocery store and continues to be independent in ADL's. Haseeb states that they have had discussions about having someone come in during the week when Haseeb is unable to be there to help pt around the apartment, but pt declines every time. Haseeb states that he went and bought a rapid test to test himself and it came back positive as well. Haseeb in quarantine now. Haseeb thankful for the call. P: Pt to get echo and stress test this morning. DCP to continue to follow case and assess for needs post discharge. Marylu Chen RN/RICHP Discharge Planning/Care Management CM Discharge Assessment Start: 09/25/21 10:48 Freq: Status: Active Protocol: Document 09/25/21 10:48 VIK (Rec: 09/25/21 10:50 [id number]) Discharge Planning Assessment Assigned Header Set Up Operator Marylu Chen RN/RICHP Advance Directives? No History Provided By Friend,Medical Record Prior Living Arrangements Apartment/Condo Household Members friend(s) Comment Pt friend Haseeb has been staying with pt Type of transporation used prior to Drives own vehicle admit Comment Pt still drives own POV Independent with ADL's Yes Is patient alert and oriented? Unable to assess at this time Caregiver for Another No Discharge Plan Home Transportation Arrangement Friend POV Referrals Initiated None needed Additional Comment At this time. Anticipating HH Whiteboard Updated in Patient Room with No name and ext. # of Header Set Up Operator Comment Unable to go into room due to C+ status Review Status In Process Please Provide Date Initial DC 09/25/21 Assessment Was Performed Next Review Type Continued Stay Review
[2021-09-25] MEDS: MAGNESIUM SULFATE 2 GM/50 ML PIGGYBACK IV (11:28)
[2021-09-25] MEDS: FUROSEMIDE 40 MG/4 ML VIAL IV (11:28)
[2021-09-25] MEDS: POTASSIUM PHOSPHATE 30 MMOL in SODIUM CHLORIDE 0.9% 500 ML 127.5 MMOL IV (13:33)
[2021-09-25 15:11] LABS: Creatine Kinase 280 U/L (55-170)
[2021-09-25 15:18] LABS: BUN Creatinine Ratio 21.8 (6-22); Blood Urea Nitrogen 34 mg/dL (9-20); Calcium 7.6 mg/dL (8.4-10.2); Carbon Dioxide 23 mmol/L (22-32); Chloride 102 mmol/L (98-107); Estimated Glomerular Filt Rate 44 mL/min (>60); Glucose 197 mg/dL (80-110); HEMOLYSIS < 15 (0-50); Potassium 4.7 mmol/L (3.4-5.1); Sodium 134 mmol/L (137-145)
[2021-09-25 15:26] LABS: CKMB % Relative Index 1.5 % (1.5-5.0); Creatine Kinase MB 4.23 ng/mL (<2.37)
[2021-09-25 15:33] LABS: Troponin I 0.354 ng/mL (0.01-0.034)
--- NOTE | 2021-09-25 15:41 | PT-IP ANOTE ---
talked with nurse and stated that Dr. Cutler ordered EKG and troponin lab for pt and to hold PT eval until then. nurse informed PT after a few hours that EKG confirmed PR and to hold PT but does not want any interventions but to hold off PT for now but not sure if MD wants to cancel PT eval order. will f/u tomorrow.
[2021-09-25 16:56] LABS: Appearance Urine UA CLEAR; Bilirubin Urine UA NEGATIVE (NEGATIVE); Color Urine UA YELLOW; Glucose Urine UA NEGATIVE (Negative); Ketones Urine UA NEGATIVE (NEGATIVE); Leukocyte Esterase Urine UA NEGATIVE (NEGATIVE); Nitrite Urine UA NEGATIVE (Negative); Occult Blood Urine UA NEGATIVE (Negative); Protein Urine UA TRACE (Negative); Urobilinogen Urine UA 0.2 E.U./dL (0.2)
[2021-09-25 17:02] LABS: Bacteria Urine None Seen; Culture Indicated Urine Cult Not Indicated; RBC Urine 0-1/HPF (0-5/HPF); WBC Urine None Seen (0-5/HPF)
[2021-09-25] MEDS: REMDESIVIR 100 MG in SODIUM CHLORIDE 0.9% 230 ML 250 MG IV (17:30)
[2021-09-25] MEDS: INSULIN LISPRO 100 UNIT/ML 3ML VIAL SUBCUT (17:30)
[2021-09-25] MEDS: Alfuzosin 10 mg tablet extended release 24 hr 10 EACH PO (21:04)
[2021-09-25] MEDS: TRAZODONE 100 MG TABLET PO (21:05)
[2021-09-25] MEDS: ATORVASTATIN 20 MG TABLET 80 MG PO (21:05)
[2021-09-26] VITALS (12 sets, daily range): BP systolic 102–196; BP diastolic 46–89; PULSE 48–79; RESP 16–18; TEMP 35.9–36.6; O2SAT 96–100
[2021-09-26] MEDS: HYDRALAZINE 20 MG/ML VIAL 10 MG IV (00:50)
[2021-09-26] MEDS: ACETAMINOPHEN 325 MG TABLET 650 MG PO ×4 (00:59→17:39)
[2021-09-26 04:00] LABS: Add Manual Diff / Slide Review NO; Basophils Absolute Auto 0 /uL (0-100); Basophils Percent Auto 0.7 % (0-2); Eosinophils Absolute Auto 200 /uL (0-450); Eosinophils Percent Auto 3.5 % (2-4); Hematocrit 31.7 % (41-53); Hemoglobin 10.8 g/dL (13.5-17.5); Lymphocytes Absolute Auto 1000 /uL (1100-4500); Lymphocytes Percent Auto 21.3 % (25-40); Mean Corpuscular HGB Conc 33.9 % (30-36); Mean Corpuscular Hemoglobin 29.1 PG (26-34); Mean Corpuscular Volume 85.8 fL (80-100); Monocytes Absolute Auto 500 /uL (0-900); Monocytes Percent Auto 9.7 % (3-14); Neutrophils Absolute Auto 3200 /uL (1500-7000); Neutrophils Percent Auto 64.8 % (50-75); Platelet Count 192 X10^3/uL (150-400); Red Cell Distribution Width 14.4 % (11.6-14.8); White Blood Cell Count 4.9 X10^3/uL (4.5-11.0)
[2021-09-26 04:11] LABS: Magnesium 2.4 mg/dL (1.6-2.3)
[2021-09-26 04:12] LABS: Alanine Aminotransferase 15 IU/L (<50); Albumin 3.3 g/dL (3.5-5.0); Albumin Globulin Ratio 1.1 (1.0-2.8); Alkaline Phosphatase 77 U/L (38-126); Aspartate Aminotransferase 37 IU/L (17-59); BUN Creatinine Ratio 20.1 (6-22); Bilirubin Total 0.2 mg/dL (0.2-1.3); Blood Urea Nitrogen 34 mg/dL (9-20); Calcium 7.6 mg/dL (8.4-10.2); Carbon Dioxide 23 mmol/L (22-32); Chloride 106 mmol/L (98-107); Estimated Glomerular Filt Rate 40 mL/min (>60); Glucose 146 mg/dL (80-110); HEMOLYSIS < 15 (0-50); Potassium 4.3 mmol/L (3.4-5.1); Sodium 136 mmol/L (137-145); Total Protein 6.3 g/dL (6.3-8.2)
[2021-09-26 04:19] LABS: NT-proBNP (BNP-Adult 18+) 5190 pg/mL (<450)
--- NOTE | 2021-09-26 04:21 | PM.PN.1 ---
Subjective Subjective Date Patient Seen: 09/26/21 Time Patient Seen: 04:22 Interval history: Patient had uneventful night. EKG yesterday showed ST-elevation MS. patient continues to deny chest pain or shortness of breath. He is ambulating up to commode. Good appetite, no nausea or vomiting. No other complaints. Exam Vital Signs (past 8 hours): - 09/25/21 23:00 09/26/21 00:50 09/26/21 01:29 Temperature 97.1 F L Pulse Rate 48 L 48 L 55 L Respiratory Rate 16 Blood Pressure 185/60 H 185/60 H 162/61 H Pulse Oximetry 99 Oxygen Flow Rate 0 09/26/21 03:00 Temperature 97.1 F L Pulse Rate 79 Respiratory Rate 17 Blood Pressure 138/89 Pulse Oximetry 96 Oxygen Flow Rate 0 Oxygen Delivery Method Room Air Oxygen Flow Rate 0 Narrative Exam Narrative: GENERAL:? Alert and oriented, appearing stated age and in no acute distress. HEENT:? Head normocephalic/atraumatic.? Extraocular movements intact.? Well-healed surgical scar, right ear, upper lobe missing. LUNGS:? Clear to ausculation bilaterally, no wheezes, rhonchi or rales. CV:? Normal S1 and S2 with regular rate and rhythm, no audible murmurs, rubs or gallops. ABDOMEN:? Soft, non-tender, non-distended, no organomegaly.? Positive bowel sounds. EXTREMITIES:? No clubbing, cyanosis, or edema. NEURO:? Cranial nerves II through XII grossly intact, no focal deficits. PSYCH:? Alert and oriented x 3. SKIN:? No concerning lesions. Objective Labs Result Diagrams: 09/26/21 03:35 09/26/21 03:35 Labs: Laboratory Results - last 24 hr 09/25/21 09/25/21 09/25/21 04:40 04:40 14:47 WBC 5.6 RBC 3.85 L Hgb 11.1 L Hct 33.1 L MCV 86.1 MCH 28.8 MCHC 33.5 RDW 14.3 Plt Count 200 Neut % (Auto) 59.7 Lymph % (Auto) 23.8 L [place] % (Auto) 12.7 Eos % (Auto) 3.0 Baso % (Auto) 0.8 Neut # (Auto) 3300 Lymph # (Auto) 1300 [place] # (Auto) 700 Eos # (Auto) 200 Baso # (Auto) 0 Sodium Potassium Chloride Carbon Dioxide BUN Creatinine Estimated GFR BUN/Creatinine Ratio Glucose Calcium Phosphorus 2.9 Magnesium 1.9 Total Creatine Kinase 280 H D CK-MB (CK-2) 4.23 H CK-MB (CK-2) Rel Index 1.5 Troponin I 0.354 H* NT-Pro-B Natriuret Pep 10375 H Urine Color Urine Appearance Urine pH Ur Specific [place] Urine Protein Urine Glucose (UA) Urine Ketones Urine Occult Blood Urine Nitrate Urine Bilirubin Urine Urobilinogen Ur Leukocyte Esterase Urine RBC Urine WBC Urine Bacteria Ur Culture Indicated? 09/25/21 09/25/21 09/26/21 14:47 15:35 03:35 WBC 4.9 RBC 3.70 L Hgb 10.8 L Hct 31.7 L MCV 85.8 MCH 29.1 MCHC 33.9 RDW 14.4 Plt Count 192 Neut % (Auto) 64.8 Lymph % (Auto) 21.3 L [place] % (Auto) 9.7 Eos % (Auto) 3.5 Baso % (Auto) 0.7 Neut # (Auto) 3200 Lymph # (Auto) 1000 L [place] # (Auto) 500 Eos # (Auto) 200 Baso # (Auto) 0 Sodium 134 L Potassium 4.7 Chloride 102 Carbon Dioxide 23 BUN 34 H Creatinine 1.56 H Estimated GFR 44 L BUN/Creatinine Ratio 21.8 Glucose 197 H Calcium 7.6 L Phosphorus Magnesium Total Creatine Kinase CK-MB (CK-2) CK-MB (CK-2) Rel Index Troponin I NT-Pro-B Natriuret Pep Urine Color Yellow Urine Appearance Clear Urine pH 5.0 Ur Specific [place] 1.010 Urine Protein Trace H Urine Glucose (UA) Negative Urine Ketones Negative Urine Occult Blood Negative Urine Nitrate Negative Urine Bilirubin Negative Urine Urobilinogen 0.2 Ur Leukocyte Esterase Negative Urine RBC 0-1/hpf Urine WBC None seen Urine Bacteria None seen Ur Culture Indicated? Cult not indicated PFSH Medical History Dyslipidemia Hypertension Osteoarthritis Social History details: has girlfriend of 3 years household members: none Smoking Status: Former smoker alcohol intake: former substance use type: does not use Assessment & Plan Assessment & Plan narrative: 1. STEMI -Troponins now trending down -Asymptomatic Plan: Will continue to trend troponin, CK, and CK-MB.? Have postponed echo per cardiology due to positive COVID status.? Stress test pending.? Continue telemetry.? Nitro/morphine/oxygen as needed.? Continue atorvastatin 80 mg PO daily.? Back on home BP medications, has been hypertensive and bradycardic, will give hydralazine 5 mg IV x 1.? Continue ASA 81 mg PO daily.? Per cardiology, secondary to age and chronic medical conditions, not proceeding with drips or invasive therapy.? Will replete potassium and magnesium and keep levels greater than 4.0/2.0, respectively.? 2. Weakness, profound, likely secondary to STEMI and COVID Plan:? Continue supportive therapy. PT when able.? Please see #1. 3. COVID, mild Plan:? Remdesivir.? Supportive care with oxygen supplementation as needed. 4. Hypertension, chronic, has been uncontrolled, now improving Plan:? Continue home atenolol 50 mg p.o. q.day, lisinopril 20 mg p.o. q.day, and furosemide 40 mg p.o. q.day. Please see #1. 5.? Elevated BNP, suspect secondary to heart failure, trending down Plan:? Lasix as needed.? Will trend labs. 6. Anemia, normocytic/normochromic, chronic at baseline Plan: Likely anemia of chronic disease, will trend labs. 7. Diabetes mellitus 2, chronic Plan:? Patient had an episode of hypoglycemia just prior to presentation.? Will monitor blood sugars closely and start SSI.? Have discontinued sulfonylurea.? 8. Chronic renal failure, Stage G3a Plan:? Overall, creatinine and GFR are improved.? Will trend labs. 9. Hyperlipidemia, chronic Plan:? In setting of possible MS, have changed simvastatin to atorvastatin 80 mg p.o. q.day. 10. BPH, chronic Plan: Continue home alfuzosin 10 mg p.o. q.day 11. Insomnia, chronic Plan:? Continue home trazodone 100 mg p.o. q.h.s. 12.? Polyuria, acute Plan: UA negative x 2. Likely due to acute stress, diabetes, BPH, etc. FEN:? PO fluids, carb consistent diet DVT prophylaxis:? Lovenox GI prophylaxis:? Protonix COVID:? Positive Code: DNR/DNI Disposition:? Anticipate at least one more night, possibly home tomorrow with home health if PT goes well. Time Spent With Patient Critical Care time: Greater than 35 minutes total time was spent on day of service, evaluating the patient on the floor, including examining the patient, discussing clinical course with clinical and nursing staff, reviewing clinical course in the computer, preparing documentation and writing orders for continued management of care, discussing status with family as appropriate, reviewing plans for the next 24 hours with both patient/family and nursing staff as appropriate. Quality VTE Deep Vein Thrombosis/Pulmonary Embolism Present on Admission: No
[2021-09-26 05:26] LABS: Creatine Kinase 227 U/L (55-170)
[2021-09-26 05:42] LABS: CKMB % Relative Index 1.5 % (1.5-5.0); Creatine Kinase MB 3.37 ng/mL (<2.37)
[2021-09-26] MEDS: IBUPROFEN 600 MG TABLET PO ×2 (06:02→21:27)
[2021-09-26] MEDS: PANTOPRAZOLE DR 20 MG TABLET PO (06:03)
[2021-09-26] MEDS: lisinopriL 20 MG TABLET PO (08:46)
[2021-09-26] MEDS: ASPIRIN EC 81 MG TABLET PO (08:46)
[2021-09-26] MEDS: ENOXAPARIN 40 MG/0.4 ML SYRINGE SUBCUT (08:46)
[2021-09-26] MEDS: INSULIN LISPRO 100 UNIT/ML 3ML VIAL SUBCUT ×3 (08:47→17:20)
--- NOTE | 2021-09-26 10:45 | PT.IIE ---
Medical History (Last Reviewed 09/24/21 @ 09:09 by Shirley Rincon DO) Dyslipidemia Hypertension Osteoarthritis Physical Therapy Inpatient Evaluation/Re-Eval M1 PT/OT-IP Prior Functional Status Start: 09/26/21 12:32 Freq: NEEDED Status: Active Protocol: Document 09/26/21 10:45 AB (Rec: 09/26/21 12:43 AB [email or web address]) Medical Review Prior Functional Status Medical History Reviewed Yes Communication able to make needs known; with slight confusion Mobility and Gait pt stated that he is independent with all mobilities without AD Social History Household Members none Living Arrangements Apartment/Condo Number of Floors (Floors) One Floor Number of Stairs To Enter/Railing? 1 step to enter Home Environment Standard Height Toilet,Tub/ Shower Home Equipment Front Wheel Walker,Straight Cane,Grab Bars In Shower Additional Social History Comment pt stated that his girlfriend' s son occasionally assists him M2 PT-IP Current Condition Start: 09/26/21 12:32 Freq: NEEDED Status: Active Protocol: Document 09/26/21 10:45 AB (Rec: 09/26/21 12:43 AB [email or web address]) Physical Therapy Current Condition Current Condition Evaluation Date 09/26/21 Treatment Diagnosis Covid; STEMI; difficulty in walking Onset Date 09/24/21 M3 PT-IP Subjective Start: 09/26/21 12:32 Freq: NEEDED Status: Active Protocol: Document 09/26/21 10:45 AB (Rec: 09/26/21 12:43 AB [email or web address]) Subjective Physical Therapy Visit Type Type Initial Evaluation Visit Start Time 10:45 Visit Stop Time 11:40 Total Visit Minutes 55 Number of 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 Visits 0 Physical Therapy Visit Comments Patient Comments agreeble to do PT Therapy Pain Assessment Pain Present Pain Present Denied Pain M4 PT-IP Mobility and Gait Start: 09/26/21 12:32 Freq: NEEDED Status: Active Protocol: Document 09/26/21 10:45 AB (Rec: 09/26/21 12:43 AB [email or web address]) PT-Bed Mobility Assessment Supine to Sit Supine to Sit Standby Assistance PT-Transfer Assessment Sit to and From Stand Sit to and from Stand Contact Guard Assistance,1 Person Assistance Equipment Transfer Assistive Device Gait Belt,Front Wheeled Walker Orthotic/Prosthetic Devices or Brace: No Transfers Transfer Destination Chair Transfer Technique ambulated Transfer Ability Level of Assist Contact Guard Assistance, Minimal Assistance,1 Person Assistance,Use of Upper Extremities Comments Mobility Comments BP: 136/67. O2 sat RA 94% WV 52 completed supine to sit SBA. able to sit on EOB SBA. completed sit to stand CGA and ambulated in room without AD min A and cues ~ 30 ft. pt presents with unsteady gait . Assessed ambulation using FWW 30 ft and requires CGA and presents a steadier gait compared to without AD. pt sat on the chair. O2 sat checked: 97% HR 57 bpm. pt agreed to sit up on the chair. table and call light within reach. Gait Assessment Gait Gait Assistance Required: Contact Guard Assist,Minimum Assistance,1 Person Assist Distance (Feet) 30 Able to Maintain Weight Bearing Status Yes During Gait Assistive Devices Assistive Device None,Gait Belt,Front Wheeled Walker Orthotic/Prosthetic Devices or Brace: No Gait Deviations General Gait Pattern Antalgic,Decreased Stride Length,Decreased Feet Clearance Factors Limiting Gait Function Factors Limiting Gait Function Decreased Activity Tolerance, Decreased Strength,Poor Balance,Poor Safety Awareness PT-Balance Assessment Sitting Balance and Reactions Static Sitting Balance Ability Normal Dynamic Sitting Balance Ability Normal Standing Balance and Reactions Static Standing Balance Ability Good Dynamic Standing Balance Ability Fair Device Used without AD M5 PT-IP Objective Assessments Start: 09/26/21 12:32 Freq: NEEDED Status: Active Protocol: Document 09/26/21 10:45 AB (Rec: 09/26/21 12:43 AB [email or web address]) Orientation Orientation/Cognition Level of Alertness Alert Orientation Name,Place,Situation Language Function Ability Hard of Hearing Safety Awareness Decreased Safety Awareness Comments with slight confusion Gross Range of Motion Lower Extremity ROM Assessment Within Functional Limits Strength Lower Extremity Strength Hip 4-/5 Knee 4-/5 Sensation Assessment Sensation Gross Sensation WNL Muscle Tone Muscle Tone WNL Yes M6 PT-IP Treatment Start: 09/26/21 12:32 Freq: NEEDED Status: Active Protocol: Document 09/26/21 10:45 AB (Rec: 09/26/21 12:43 AB [email or web address]) Physical Therapy Treatment Education Education Provided Safety M7 PT-IP Assessment and Plan Start: 09/26/21 12:32 Freq: NEEDED Status: Active Protocol: Document 09/26/21 10:45 AB (Rec: 09/26/21 12:43 AB [email or web address]) PT Summary Assessment and Plan Potential Rehabilitation Potential Fair Status of Condition at Evaluation Stable Summary Impairments ROM,Strength,Balance,Cognition ,Bed Mobility,Transfers,Gait, Activity Tolerance Assessment Summary pt requiring min A with ambulation without AD and CGA using FWW. recommending use of FWW at this time. pt will likely progress during hospital stay. Pt will require HHPT to improve overall strength will need assistance at home. will continue to assess. Goals Bed Mobility Goal Independent Transfer Goal Independent,Front Wheeled Walker Gait Goal Independent,Front Wheel Walker Gait Distance 200 Other Goals improve ambulation without AD mod I ~ 250 ft up/down 1 step without AD or with FWW mod I Days to Meet Goals 10 Frequency of Treatment Frequency Of Treatment Once a Day Treatment Plan Physical Therapy Treatment Plan Bed Mobility Training,Transfer Training,Gait Training, Therapeutic Exercise,Balance Retraining,Discharge Planning, Neuromuscular Re-ed, Coordination Retraining Precautions Other Precautions falls Recommendations To Nursing Amount of Assist Needed 1 Person Assist Discharge Recommendations PT Discharge Recommendations Home with Assistance,Home Health Transportation Needs at Discharge Private Vehicle,Wheelchair/ Cabulance
--- NOTE | 2021-09-26 13:08 | CM.DPC ---
Addendum entered by Marylu Chen R.N. 09/26/21 15:46: DCP sent referral to [facility] as [facility] not contracted with pt insurance. [facility] is contracted so pt is accepted under their care. Marylu Chen RN/CHARLIE Addendum entered by Marylu Chen R.N. 09/26/21 14:00: DCP recieved call from [facility]. Pt insurance is not accepted with [facility]. DCP to fax referral to [facility] . Marylu Chen RN/CHARLIE Original Note: DCP Cont: DCP spoke with pt today via phone as DCP cannot enter room due to Covid+ status. Pt verbalized that he lives alone but his friend Haseeb comes to stay with him quite often. DCP verbalized that it looks like he would benefit from HH. Pt states that he would agree with that plan. Pt states that he did not want them at the house until he is there. DCP states that they wouldn't come to the house until the patient is discharged from the hospital. Pt agrees with the plan for HH. Pt thankful for the call. DCP spoke with Haseeb, pt emergency contact and friend, and update him on the HH referral. Haseeb appreciated the call and agrees to . Haseeb wondering how long he will be in the hospital. DCP did not have a definitive date for Haseeb. DCP faxed referral and clinicals to [facility]. DCP updated [facility] at [facility]. DCP to continue to follow. P: When pt medically stable, pt to discharge home via friend POV with [facility]. Marylu Chen RN/CHARLIE
[2021-09-26] MEDS: HYDRALAZINE 20 MG/ML VIAL 5 MG IV (13:13)
--- NOTE | 2021-09-26 14:24 | DIET.CONS ---
Dietary Consultation Note Admission Date: 09/24/2021 16:36 Assessment: 80 y/o M admitted secondary to weakness, hypoglycemia, and COVID with elevated troponins. Per provider notes, Robin had a BG of 40 mg/dL upon EMS arrival. After glucose tx, BG only increased to 70 mg/dL. Home DM meds 4mg glimepiride, which has been discontinued. HgA1c of 6.5% perhaps a bit low for age, indicating likelihood of hypoglycemic episodes over the last 2-3 months. Since d/c of glimepiride, BG have been well managed with BG 100-190 mg/dL. MAR indicates 0-1 u SSI. CCD x 60g per meal with PO 50-100%. Diet recall indicates carb intake is usually moderate to high. Endorses good appetite even prior to admit. Diet recall: 10a: villavicencio, eggs, chocolate pudding OR cheerios with milk 2p: sausage and bread sn: liverwurst sandwich OR sardines 9-10p: sandwich sn: chocolate pudding Beverages: mostly coffee with milk and sugar, koolaid, sometimes water Does not check BG at home. Denies any recent BW changes. States clothes fit well. States 3-4 years ago he weighed 200#, but intentionally lost wt to help with back issues. GFR 40 ; Cr 1.69 -- not likely a great candidate to start Metformin given kidney health. Sulfonyurea causing hypoglycemia. Provider could consider discharging him on low dose glimepiride given his usual high carb intake or d/c any DM meds and re-evaluate HgA1c in 3 months. Potential goal for HgA1c given age and risk for hypoglycemia could be <8% or 7-7.5% given kidney health. Ht: 177.8 cm Wt: 79.243 kg BMI: 25.0 Last BM: 09/26/21 (09/26/21 04:00) MNA: 14 Stuart Score: 20 Diet: 09/25/21 Breakfast Carbohydrate Consistent Diet Diet Modifications: Carbohydrate level: Extra Large (5 CHO) Bedtime snack: Yes Nutrition Percent Meal Consumed 50% 09/26/21 13:20 Percent Meal Consumed 100% 09/26/21 08:53 Percent Meal Consumed 75% 09/25/21 18:26 Percent Meal Consumed 100% 09/25/21 13:24 Percent Meal Consumed 100% 09/25/21 09:35 Percent Meal Consumed 50% 09/24/21 18:54 Percent Meal Consumed 50% 09/24/21 18:00 Labs: RBC 3.70 X10^6/uL (4.5-5.9) L 09/26/21 03:35 Hgb 10.8 g/dL (13.5-17.5) L 09/26/21 03:35 Hct 31.7 % (41-53) L 09/26/21 03:35 Creatinine 1.69 mg/dL (0.66-1.25) H 09/26/21 03:35 NT-Pro-B Natriuret Pep 5190 pg/mL (<450) H 09/26/21 03:35 Interventions: 1. Briefly discussed impact of sulfonyurea on low blood sugar. Encouraged consistent intake. Denies any questions at this time. 2. Briefly discussed avoiding sugar beverages if he no longer takes DM medications upon discharge. 3. Recc cont current DM management in IP. 4. Considerations for low dose DM med or discontinued DM upon discharge with OP follow-up. 5. Goal of BG 140-180 mg/dL 6. Goal of HgA1c 7-8% Monitoring/Evaluations: consult prn Electronically Signed by: Mony Gant 09/26/21 14:24 Clinical Dietitian, [address] [address]
[2021-09-26] MEDS: REMDESIVIR 100 MG in SODIUM CHLORIDE 0.9% 230 ML 250 MG IV (17:39)
--- NOTE | 2021-09-26 18:55 | PC.NURSE ---
Pt is AxOx4, independent and happy. VSS, pt has general pain and it is controlled well with his routine Tylenol. BG-163/161/146, pt is eating well and drinking well. Pt goes to the bathroom independently. Continued droplet precaution. Nothing eventful happened during the day. Last BM on 09/26.
[2021-09-26] MEDS: TRAZODONE 100 MG TABLET PO (21:27)
[2021-09-26] MEDS: ATORVASTATIN 20 MG TABLET 80 MG PO (21:27)
[2021-09-27] VITALS (7 sets, daily range): BP systolic 143–196; BP diastolic 51–63; PULSE 51–64; RESP 16–18; TEMP 36.2–36.4; O2SAT 97
[2021-09-27] MEDS: HYDRALAZINE 20 MG/ML VIAL 10 MG IV (00:33)
[2021-09-27] MEDS: IBUPROFEN 600 MG TABLET PO (05:57)
[2021-09-27] MEDS: PANTOPRAZOLE DR 20 MG TABLET PO (05:57)
[2021-09-27] MEDS: ACETAMINOPHEN 325 MG TABLET 650 MG PO (05:57)
[2021-09-27 06:39] LABS: Add Manual Diff / Slide Review NO; Basophils Absolute Auto 0 /uL (0-100); Basophils Percent Auto 0.8 % (0-2); Eosinophils Absolute Auto 200 /uL (0-450); Eosinophils Percent Auto 2.8 % (2-4); Hemoglobin 10.4 g/dL (13.5-17.5); Lymphocytes Absolute Auto 1400 /uL (1100-4500); Lymphocytes Percent Auto 24.5 % (25-40); Mean Corpuscular HGB Conc 33.4 % (30-36); Mean Corpuscular Volume 86.7 fL (80-100); Monocytes Absolute Auto 700 /uL (0-900); Monocytes Percent Auto 11.8 % (3-14); Neutrophils Absolute Auto 3500 /uL (1500-7000); Neutrophils Percent Auto 60.1 % (50-75); Platelet Count 192 X10^3/uL (150-400); Red Blood Cell Count 3.58 X10^6/uL (4.5-5.9); Red Cell Distribution Width 14.3 % (11.6-14.8); White Blood Cell Count 5.8 X10^3/uL (4.5-11.0)
[2021-09-27 06:45] LABS: Alanine Aminotransferase 14 IU/L (<50); Albumin 3.2 g/dL (3.5-5.0); Albumin Globulin Ratio 1.1 (1.0-2.8); Alkaline Phosphatase 76 U/L (38-126); Aspartate Aminotransferase 33 IU/L (17-59); BUN Creatinine Ratio 21.8 (6-22); Bilirubin Total 0.2 mg/dL (0.2-1.3); Blood Urea Nitrogen 43 mg/dL (9-20); Calcium 7.6 mg/dL (8.4-10.2); Carbon Dioxide 24 mmol/L (22-32); Chloride 109 mmol/L (98-107); Estimated Glomerular Filt Rate 34 mL/min (>60); Globulin 2.9 g/dL (1.7-4.1); Glucose 100 mg/dL (80-110); HEMOLYSIS < 15 (0-50); Potassium 4.4 mmol/L (3.4-5.1); Sodium 138 mmol/L (137-145); Total Protein 6.1 g/dL (6.3-8.2)
[2021-09-27 06:46] LABS: Magnesium 2.3 mg/dL (1.6-2.3); Phosphorous 3.6 mg/dL (2.3-3.7)
[2021-09-27 06:53] LABS: NT-proBNP (BNP-Adult 18+) 3080 pg/mL (<450)
[2021-09-27 07:46] LABS: Creatine Kinase 128 U/L (55-170)
[2021-09-27 07:59] LABS: Troponin I 0.114 ng/mL (0.01-0.034)
[2021-09-27 08:02] LABS: CKMB % Relative Index 1.4 % (1.5-5.0); Creatine Kinase MB 1.82 ng/mL (<2.37)
[2021-09-27] MEDS: ASPIRIN EC 81 MG TABLET PO (08:50)
[2021-09-27] MEDS: lisinopriL 20 MG TABLET PO (08:50)
[2021-09-27] MEDS: atenoloL 50 MG TABLET PO (08:50)
[2021-09-27] MEDS: FUROSEMIDE 20 MG TABLET 40 MG PO (08:50)
[2021-09-27] MEDS: ENOXAPARIN 40 MG/0.4 ML SYRINGE SUBCUT (08:50)
--- NOTE | 2021-09-27 10:05 | PT.IPTN ---
Current Diagnoses ST elevation (STEMI) myocardial infarction of unspecified site (09/24/21) Physical Therapy Treatment Note M2 PT-IP Current Condition Start: 09/26/21 12:32 Freq: NEEDED Status: Active Protocol: Document 09/26/21 10:45 AB (Rec: 09/26/21 12:43 AB [id number]) Physical Therapy Current Condition Current Condition Evaluation Date 09/26/21 Treatment Diagnosis Covid; STEMI; difficulty in walking Onset Date 09/24/21 M3 PT-IP Subjective Start: 09/26/21 12:32 Freq: NEEDED Status: Active Protocol: Document 09/27/21 10:05 AB (Rec: 09/27/21 11:43 AB [id number]) Subjective Physical Therapy Visit Type Type Treatment Note Visit Start Time 10:05 Visit Stop Time 10:43 Total Visit Minutes 37 Number of RENTAL CAR FERRY DRIVER Visits 0 Physical Therapy Visit Comments Patient Comments agreeable to do PT Therapy Pain Assessment Pain Present Pain Present Denied Pain M4 PT-IP Mobility and Gait Start: 09/26/21 12:32 Freq: NEEDED Status: Active Protocol: Document 09/27/21 10:05 AB (Rec: 09/27/21 11:43 AB [id number]) PT-Bed Mobility Assessment Supine to Sit Supine to Sit Independent Sit to Supine Sit to Supine Independent PT-Transfer Assessment Sit to and From Stand Sit to and from Stand Standby Assistance Equipment Transfer Assistive Device Gait Belt,Front Wheeled Walker Orthotic/Prosthetic Devices or Brace: No Comments Mobility Comments BP: 135/65 NV: 52 O2 sat 97% completed bed mobility supine to sit mod I. completed sit to stand SBA and ambulation in room using FWW SBA ~ 75 ft. pt sat on EOB and rested. agreed to ambulate without AD and completed ~ 40 ft SBA to occasionally CGA with slight LOB but with recovery. pt tentative with his steps and stated that he is careful. pt stated that he does not want to use a FWW or cane when he goes home. instructed to go up/down step stool as pt has one step to enter the house. completed min A with use of L rail. positioned step stool in between door frame to simulate home set up and pt completed min A using door frame for support. pt stated that his step at home is not has high as current step stool . pt ambulated more in room without AD ~ 25 ft SBA to CGA. requested to use the toilet and ambulated to the toilet SBA to CGA. completed toileting needs without assistance and ambulated towards the sink SBA without AD. able to maintain standing SBA while completing handwashing and grooming. pt requested to go back to bed and ambulation without AD SBA. completed sit to supine independent. positioned in bed. call light and table placed within reach. Gait Assessment Gait Gait Assistance Required: Standby Assistance,Contact Guard Assist Distance (Feet) 75 Able to Maintain Weight Bearing Status Yes During Gait Assistive Devices Assistive Device None,Gait Belt,Front Wheeled Walker Orthotic/Prosthetic Devices or Brace: No Gait Deviations General Gait Pattern Antalgic,Decreased Stride Length,Decreased Feet Clearance Factors Limiting Gait Function Factors Limiting Gait Function Decreased Activity Tolerance, Decreased Strength,Poor Balance Stair Climbing Assessment Evaluation Level of Assist On Stairs Minimal Assistance Devices Stair Climbing Assistive Devices Left Railing Technique/Endurance Stair Climbing Direction Ascend and Descend Stair Climbing Technique Step to Step Number of Steps Climbed 1 Stair Climbing Set # Repetitions (reps) 4 M5 PT-IP Objective Assessments Start: 09/26/21 12:32 Freq: NEEDED Status: Active Protocol: Document 09/26/21 10:45 AB (Rec: 09/26/21 12:43 AB [email or web address]) Orientation Orientation/Cognition Level of Alertness Alert Orientation Name,Place,Situation Language Function Ability Hard of Hearing Safety Awareness Decreased Safety Awareness Comments with slight confusion Gross Range of Motion Lower Extremity ROM Assessment Within Functional Limits Strength Lower Extremity Strength Hip 4-/5 Knee 4-/5 Sensation Assessment Sensation Gross Sensation WNL Muscle Tone Muscle Tone WNL Yes M6 PT-IP Treatment Start: 09/26/21 12:32 Freq: NEEDED Status: Active Protocol: Document 09/27/21 10:05 AB (Rec: 09/27/21 11:43 AB [id number]) Physical Therapy Treatment Education Education Provided Safety M7 PT-IP Assessment and Plan Start: 09/26/21 12:32 Freq: NEEDED Status: Active Protocol: Document 09/27/21 10:05 AB (Rec: 09/27/21 11:43 AB [email or web address]) PT Summary Assessment and Plan Potential Rehabilitation Potential Good Summary Impairments ROM,Strength,Balance, Coordination,Cognition,Bed Mobility,Transfers,Gait, Activity Tolerance Progress Towards Goals Progressing Toward Goals Assessment Summary pt requiring SBA to CGA with ambulation without AD with slight LOB but with recovery. pt refuses to use AD when he goes home. pt requires min A with up/down step. pt will require assistance when he goes home and will need HHPT. will continue to assess progress. Goals Bed Mobility Goal Independent Transfer Goal Independent,Front Wheeled Walker Gait Goal Independent,Front Wheel Walker Gait Distance 200 Other Goals improve ambulation without AD mod I ~ 250 ft up/down 1 step without AD mod I Days to Meet Goals 10 Frequency of Treatment Frequency Of Treatment Once a Day Treatment Plan Physical Therapy Treatment Plan Bed Mobility Training,Transfer Training,Gait Training, Therapeutic Exercise,Balance Retraining,Discharge Planning, Neuromuscular Re-ed, Coordination Retraining Precautions Other Precautions falls Recommendations To Nursing Amount of Assist Needed 1 Person Assist Discharge Recommendations PT Discharge Recommendations Home with Assistance,Home Health Transportation Needs at Discharge Private Vehicle,Wheelchair/ Cabulance
--- NOTE | 2021-09-27 13:00 | CM.DPC ---
Addendum entered by Ofelia Gunter R.N. 09/27/21 14:08: Updated Duncan at [facility] that patient is discharging. Faxed over face to face, orders, and DC Summary. Original Note: DCP CONT: Spoke to Dr. Peña, and she stated, she is planning on discharging patient today. She indicated that she hopes that we can get in touch with friend, Haseeb, who stays with patient. Other option is BLS transport, since patient has Medicaid. Dr. Peña has been working with patient's [facility] patient case coordinator to attempt to get patient into half-way placement. She asked if patient would qualify for SNF. but he is ambulatory, and [employer] most likely will not skill him. Therefor, plan is home with [facility]. Called patient's friend, Haseeb. He can apple picker patient at 1430 down stairs. Patient will need to be brought downstairs. Updated nurse, Kevin, and [employer]. Will update Rule, and will send them DC Summary, face to face, and orders. P: Patient is supposed to discharge home today with friend to apple picker at 1430. Will update [facility]. Ofelia Gunter RN/[employer]
--- NOTE | 2021-09-27 13:37 | PM.DS.1 ---
History of Present Illness History of Present Illness Date Patient Seen: 09/27/21 Time Patient Seen: 11:30 Chief complaint: feels funny, trouble getting into bed, fell Narrative: Mr. Baugh is an 80-year-old male who was admitted from the ED secondary to weakness, hypoglycemia, and incidental COVID with elevated troponins. Reports that in the last few days he has been having multiple falls and kept falling when he was trying to get out of bed. [place] that his leg was not working very well. However, denied headache, neck or back pain, chest pain or shortness of breath. No nausea vomiting. No facial droop or difficulty with speech. No numbness or tingling. EMS did note a glucose of 40 upon arrival and after receiving glucose, it was 70 upon recheck. He is on a sulfonyurea. Vital signs upon arrival in the emergency department included a temperature of 98.5?, pulse 60, respirations 19, blood pressure 211/89, O2 saturation 97% on room air. Lab significant for a normocytic/normochromic anemia with a hemoglobin of 10.9/hematocrits 33.1. BUN and creatinine were slightly elevated but better than baseline for patient at 25 and 136, respectively. Creatinine baseline normally 1.5. Troponin I was found to be elevated at 0.260 upon recheck, 0.446. CK elevated at 609, CK-MB elevated at 8.51. BNP also elevated at 2 920. Notably, chest x-ray, CT head, and CTA head/neck were unremarkable. CTA head/neck did show 70% narrowing of the internal carotid arteries but no hemodynamically significant stenosis. EKG showed normal sinus rhythm with a ventricular rate of 64. No acute changes from 11/23/2018. Repeat EKG in the ED again showed no acute changes. Currently feeling fine, no chest pain or shortness of breath. Had a good appetite. Denies nausea. Denies weakness currently. Feels that he is urinating more but denies dysuria or abdominal pain. Past Medical History: Back injury (1969) Gastric ulcer, bleeding/anemia (06/2010) Coronary artery disease Hyperlipidemia Hypertension Diabetes mellitus type 2 Microalbuminuria CKD stage 3 GERD Degenerative joint disease BPH with urinary obstruction Insomnia Moderate intellectual disability Tobacco use disorder Obesity Squamous cell carcinoma, left ear Past Surgical History: Stents (01/2003) Left rotator cuff tear (02/2012) Squamous cell carcinoma repair, left ear, 08/08 Family History: Father: Deafness, Hypertension Social History: Marital Status: Single, lives with ex-girlfriend's son, Jose in apartment in [place] Occupation: not working Education: [employer] Discharge Providers Provider Date of admission: 09/24/21 16:36 Discharge Date: 09/27/21 Primary care physician: Henri Plummer MD Consults: 09/24/21 08:21 Consult to [facility] [place] 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 STEMI, acute 2. Weakness, profound, likely secondary to STEMI and COVID 3. COVID, mild 4. Hypertension, chronic, uncontrolled 5.?Elevated BNP, suspect secondary to heart failure, trending down 6. Anemia, normocytic/normochromic, chronic at baseline 7. Diabetes mellitus 2, chronic 8. Acute on chronic renal failure, Stage G3a 9. Hyperlipidemia, chronic 10. BPH, chronic 11. Insomnia, chronic 12.? Polyuria, acute Hospital Course: Remarkable for STEMI that occurred during inpatient stay. Cardiology was consulted at time of the ED admission and secondary to age and comorbidities, [place] was medically managed without trips or invasive procedures. Patient is not a candidate for anticoagulation, he was started on aspirin 81 mg p.o. q.day and simvastatin was changed to atorvastatin 80 mg PO qhs. Admission troponin, 0.260, peak of 0.611 and on day of discharge, 0.114. Admission CK, 609, upon discharge, 128. Admission CK-MB, 8.5, upon discharge 1.82. Patient denied chest pain throughout just significant weakness. On day of discharge he feels that he is back to his baseline. His blood pressures have been uncontrolled throughout his stay in the 150-190/50-60 range. Wide pulse pressure likely secondary to age and diastolic dysfunction. Echo could not be completed in hospital due to positive COVID status, needs to be updated as an outpatient. Lisinopril was increased from 20 to 30 mg and he will need to have his blood pressure checked again at his 1 week follow-up. BNP was also elevated with a max of 10,500. After IV Lasix, BNP reduced to 3080. This did cause an increase in his creatinine from 1.36 to 1.97 and both BMP and BNP will need to be checked as an outpatient as well. STEMI likely also contributed to his acute fall in renal function. Throughout his stay, he complained of increased urination; UA x2 was negative for infection. Polyuria thought to be secondary to acute stress, chronic diabetes and BPH. He was discharged home with home health. This will be his first time using home health. Anticipate that very soon he may need a custodial secondary to his underlying intellectual disability and advanced age. Outpatient social media job titles is Heydi with [facility] [employer] ([phone]). She has had a site visit already at his home and is working on arranging a custodial placement for him. Patient was also incidentally found to have COVID upon admission. He was asymptomatic from this with no cough, sore throat, or fever. He did not require any oxygen. Due to risk factors, he was given remdesivir during his stay. Secondary to hypoglycemia upon admission, glimepiride was discontinued. Outpatient follow-up to-do items: 1. BMP 2. BNP 3. Blood pressure check and medication titration if needed. 4. Echo 5. Cardiology referral 6. Social work coordination with Heydi to check on status of custodial placement. 7. Confirmation that home health services have begun. 8. Ensure that patient has made all medication changes and that [place] has updated his bubble packs. Time spent on Discharge and Coordination of post-hospital care: 35 minutes Status at Discharge Cognitive/behavioral status at discharge: at baseline, oriented Functional status at discharge: independent ambulation Overall status at discharge: patient is back to baseline Exam Vital Signs (past 8 hours): - 09/27/21 07:00 09/27/21 08:50 09/27/21 11:00 Temperature 97.5 F L 97.2 F L Pulse Rate 61 61 51 L Respiratory Rate 18 17 Blood Pressure 164/51 H 161/51 H 158/56 H Pulse Oximetry 97 97 Oxygen Flow Rate 0 0 Oxygen Delivery Method Room Air Oxygen Flow Rate 0 Narrative Exam Narrative: GENERAL:? Alert and oriented, appearing stated age and in no acute distress, cheerful HEENT:? Head normocephalic/atraumatic.? Extraocular movements intact.? Well-healed surgical scar, right ear, upper lobe missing. LUNGS:? Clear to ausculation bilaterally, no wheezes, rhonchi or rales. CV:? Normal S1 and S2 with regular rate and rhythm, no audible murmurs, rubs or gallops. ABDOMEN:? Soft, non-tender, non-distended, no organomegaly.? Positive bowel sounds. EXTREMITIES:? No clubbing, cyanosis, or edema. NEURO:? Cranial nerves II through XII grossly intact, no focal deficits. PSYCH:? Alert and oriented x 3. SKIN:? No concerning lesions. Objective Labs Result Diagrams: 09/27/21 06:12 09/27/21 06:12 Labs: Laboratory Results - last 24 hr 09/27/21 09/27/21 09/27/21 06:12 06:12 06:12 WBC 5.8 RBC 3.58 L Hgb 10.4 L Hct 31.0 L MCV 86.7 MCH 29.0 MCHC 33.4 RDW 14.3 Plt Count 192 Neut % (Auto) 60.1 Lymph % (Auto) 24.5 L [place] % (Auto) 11.8 Eos % (Auto) 2.8 Baso % (Auto) 0.8 Neut # (Auto) 3500 Lymph # (Auto) 1400 [place] # (Auto) 700 Eos # (Auto) 200 Baso # (Auto) 0 Sodium 138 Potassium 4.4 Chloride 109 H Carbon Dioxide 24 BUN 43 H Creatinine 1.97 H Estimated GFR 34 L BUN/Creatinine Ratio 21.8 Glucose 100 Calcium 7.6 L Phosphorus 3.6 Magnesium 2.3 Total Bilirubin 0.2 AST 33 ALT 14 Alkaline Phosphatase 76 Total Creatine Kinase CK-MB (CK-2) CK-MB (CK-2) Rel Index Troponin I NT-Pro-B Natriuret Pep 3080 H Total Protein 6.1 L Albumin 3.2 L Globulin 2.9 Albumin/Globulin Ratio 1.1 09/27/21 06:12 WBC RBC Hgb Hct MCV MCH MCHC RDW Plt Count Neut % (Auto) Lymph % (Auto) [place] % (Auto) Eos % (Auto) Baso % (Auto) Neut # (Auto) Lymph # (Auto) [place] # (Auto) Eos # (Auto) Baso # (Auto) Sodium Potassium Chloride Carbon Dioxide BUN Creatinine Estimated GFR BUN/Creatinine Ratio Glucose Calcium Phosphorus Magnesium Total Bilirubin AST ALT Alkaline Phosphatase Total Creatine Kinase 128 CK-MB (CK-2) 1.82 CK-MB (CK-2) Rel Index 1.4 L Troponin I 0.114 H NT-Pro-B Natriuret Pep Total Protein Albumin Globulin Albumin/Globulin Ratio PFSH Medical History Dyslipidemia Hypertension Osteoarthritis Social History details: has girlfriend of 3 years household members: none Smoking Status: Former smoker alcohol intake: former substance use type: does not use Discharge Plan Discharge Plan Patient Disposition: Home Health Service Transfer to: [facility] Provider Discharge Comment: 1. Robin please note that I am changing your medications. -You should now take 30 mg of lisinopril daily. A new prescription has been sent to [facility]. -Please start aspirin 81 mg/day to help prevent a stroke/heart attack. -Please stop glimperide because your blood sugar got too low. -Please stop simvastatin. -Please start atorvastatin 80 mg/night. 2. Follow up appointment with Dr. Plummer (your new doctor at the clinic) on Wednesday, 10/01, check in at 10:30 am. He will check your blood pressure again and make sure that you are taking your new medications. All the best - I will miss you! Warmly, Dr. Peña Discharge orders & Medications Prescriptions: New aspirin 81 mg Tablet,Delayed Release (Dr/Ec) 81 mg PO DAILY Qty: 30 1RF atorvastatin 80 mg tablet 80 mg PO BEDTIME Qty: 90 3RF Continued atenolol 50 MG tablet 50 mg PO DAILY Qty: 0 potassium chloride 10 mEq Tablet,Er Particles/Crystals 10 meq PO DAILY trazodone 100 mg Tablet 100 mg PO BEDTIME melatonin 5 mg Tablet 5 mg PO BEDTIME omeprazole 20 mg capsule,delayed release(DR/EC) 20 mg PO BID Label Comments: take 1 capsule by mouth twice a day 30 MINUTES BEFORE MEALS furosemide 20 mg tablet 40 mg PO DAILY Label Comments: take 2 tablets by mouth once daily alfuzosin 10 mg tablet extended release 24 hr 10 mg PO DAILY Label Comments: take 1 tablet by mouth once daily Changed lisinopril 20 mg tablet 30 mg PO DAILY Qty: 30 1RF Label Comments: take 1 tablet by mouth once daily Discontinued simvastatin 40 mg tablet 40 mg PO DAILY glimepiride 4 mg tablet 4 mg PO DAILY Label Comments: take 1 tablet by mouth once daily Follow up/Referrals: Henri Plummer MD [Primary Care Provider] - Diet/Activity/Treatments Diet: Low-sodium Activity: As tolerated Skin/Wound/Dressing Care Report to your healthcare provider any signs of infection, such as:: chills, fever and increased pain Visit Report/Discharge Packet Instructions: Heart Attack Discharge Data Primary Care Provider: Henri Plummer Quality VTE Deep Vein Thrombosis/Pulmonary Embolism Present on Admission: No
[2021-09-27] MEDS: lisinopriL 10 MG TABLET PO (13:44)
== END 2021-09-27 14:34 | disposition home health service (06) | DRG 280 ==
LOC: ED 15:19 → AC 16:37
PROVIDERS: Admitting Provider Student in an Organized Health Care Education/Training Program; Emergency Provider Emergency Medicine; PCP Family Medicine; Referring Provider Emergency Medicine; Visit Provider Student in an Organized Health Care Education/Training Program
DX: I21.3 ST elevation (STEMI) myocardial infarction of unspecified site (principal); U07.1 COVID-19; N17.9 Acute kidney failure, unspecified; I13.0 Hypertensive heart and chronic kidney disease with heart failure and stage 1 through stage 4 chronic kidney disease, or unspecified chronic kidney disease; N18.31 Chronic kidney disease, stage 3a; I50.9 Heart failure, unspecified; E11.649 Type 2 diabetes mellitus with hypoglycemia without coma; E78.5 Hyperlipidemia, unspecified; N40.0 Benign prostatic hyperplasia without lower urinary tract symptoms; G47.00 Insomnia, unspecified; R35.89 Other polyuria; D64.89 Other specified anemias; R29.6 Repeated falls; Z20.822 Contact with and (suspected) exposure to COVID-19; Z87.891 Personal history of nicotine dependence; Z66 Do not resuscitate; Z79.84 Long term (current) use of oral hypoglycemic drugs
CPT/HCPCS: 36415; 70450; 70496; 70498; 71045; 80048; 80053; 80305; 81001; 81003; 81015; 82550; 82553; 82962; 83735; 83880; 84100; 84484; 85025; 85610; 85730; 87635; 93005; 93010; 94762; 97116; 97161; 97530; 99285; C9803; J0360; J1650; J1815; J1940; J3475; Q9967

== ENCOUNTER 2021-10-25 13:07 | Observation (INO) | payer OTHER, MEDICAID, SELFPAY ==
[2021-09-24 17:13] VITALS: BMI 25.0
[2021-10-25] VITALS (25 sets, daily range): BP systolic 185–235; BP diastolic 72–98; PULSE 49–73; RESP 16–28; TEMP 29.3–36.7; O2SAT 97–99; BMI 28.3
--- NOTE | 2021-10-25 12:59 | DI.CT.S_ITS ---
PROCEDURE: CT STROKE INDICATIONS: cva TECHNIQUE: Noncontrast 4.5 mm thick angled axial sections acquired from the foramen magnum to the vertex, with coronal reformats. For radiation dose reduction, the following was used: automated exposure control, adjustment of mA and/or kV according to patient size. COMPARISON: None. FINDINGS: Image quality: Excellent. CSF spaces: Basal cisterns are patent. No extra-axial fluid collections. The ventricles are symmetric in size and shape. Brain: No intracranial bleeds or masses. There is cerebral volume loss for age, with resultant ventricular and sulcal prominence. There are periventricular and deep white matter chronic small vessel ischemic changes. There is intracranial internal carotid artery atherosclerosis. Skull and face: Calvarium and visualized facial bones appear intact, without suspicious lesions. Sinuses: Visualized sinuses and mastoids are clear. IMPRESSION: 1. No acute intracranial abnormality. 2. Cerebral volume loss and small vessel ischemic changes. Findings were discussed with Dr. Rincon in the emergency department at 12:25 This study fulfills neurological imaging criteria for inclusion or exclusion of acute stroke therapies based on available published neurological guidelines. Dictated by: Pedro Yates M.D. on 10/25/2021 at 12:23 Approved by: Pedro Yates M.D. on 10/25/2021 at 12:26
--- NOTE | 2021-10-25 13:00 | DI.CT.S_ITS ---
PROCEDURE: CT ANGIO HEAD AND NECK INDICATIONS: cva TECHNIQUE: Pre-contrast 4.5 mm thick sections acquired from the foramen magnum to the vertex. After the administration of intravenous contrast, 1 mm thick sections acquired from the aortic arch through the [place] of [place]. Post-contrast 4.5 mm thick sections then re-acquired from the foramen magnum to the vertex. 3-dimensional pqdxjnl-[id number]-hlagfidnyg (MIP) and/or volume rendering reformats were acquired of the central intracranial vasculature and neck separately. For radiation dose reduction, the following was used: automated exposure control, adjustment of mA and/or kV according to patient size. COMPARISON: [facility], CT, CT ANGIO HEAD AND NECK, 09/24/2021, 9:41. FINDINGS: Image quality: Excellent. BRAIN: CSF spaces: Ventricles are normal in size and shape. Basal cisterns are patent. No extra-axial fluid collections. Brain: No midline shift. No intracranial bleeds or masses. [place]-white matter interface appears intact. Skull and face: Calvarium and facial bones appear intact, without suspicious lesions. Orbits appear normal. Sinuses: Sinuses and mastoids are clear. HEAD CT ANGIOGRAPHY: Anterior circulation: Intracranial internal carotid arteries demonstrate generalized atherosclerotic calcifications with up to 70% stenosis on the right and 90% stenosis on the left. The flow within the anterior cerebral arteries is normal and symmetric. The flow within the middle cerebral arteries is normal and symmetric. The anterior communicating artery is seen. No aneurysms. Posterior circulation: Visualized portions of the vertebral arteries demonstrate normal caliber, and join to form a normal appearing basilar artery. Flow within the posterior cerebral arteries is normal and symmetric. No aneurysms are seen. NECK CT ANGIOGRAPHY: Carotid system: The great vessels demonstrate a conventional anatomy as they arise from the aortic arch. The origins of the common carotid arteries appear patent. The common carotid arteries demonstrate normal caliber and courses. The bifurcation regions demonstrate atherosclerotic calcification and irregularity with no significant stenosis. The internal carotid arteries demonstrate normal calibers and courses. Posterior circulation: The origins of the vertebral arteries both appear widely patent. The more superior extracranial portions of both vertebral arteries also demonstrate normal courses and calibers. They join to form a normal appearing basilar artery. Soft tissues: Visualized neck soft tissues demonstrate no suspicious abnormalities. Bones: No suspicious bony lesions. Visualized cervical spine appears normally aligned. Multilevel degenerative disc disease is seen. There is partial fusion of C3-4. Moderate to severe disc space narrowing at C6-7 and C7-T1. Anterior osteophytes are seen at multiple levels with anterior bridging from C6 through T3. IMPRESSION: 1. CTA head demonstrates severe calcifications within the intracranial internal carotid arteries with 70% stenosis on the right and 90% stenosis on the left. 2. CTA neck demonstrates no significant stenosis. 3. Cervical spondylosis. Any quantitative measurements of stenosis were performed using NASCET criteria. Dictated by: Pedro Yates M.D. on 10/25/2021 at 12:39 Approved by: Pedro Yates M.D. on 10/25/2021 at 12:47
--- NOTE | 2021-10-25 13:35 | ED.NEUROSD ---
HPI - Neuro Symptoms/Deficit General Chief Complaint: Altered Mental Status Stated Complaint: Code stroke Time Seen by Provider: 10/25/21 13:11 Source: patient, EMS and old records reviewed Mode of arrival: EMS Limitations: no limitations History of Present Illness HPI Narrative: This is an 81-year-old male with history of hypertension, dyslipidemia, CKD, diabetes and bilateral carotid stenosis up to 70% bilaterally. Patient was last seen normal at noon today by family friend. Patient lives independently. Patient had facial droop, word salad with significant dysarthria. EMS states his speech has been improving during transport here in the department. Patient himself denies headache, no chest pain or shortness of breath, no nausea or vomiting, no other GI or urinary he denies any weakness in his upper lower extremities. Describes some tingling in his left upper extremity earlier today. He states his speech was quite garbled earlier but feels like it is better. Patient is on aspirin 81 mg daily. Patient's glucose was 82 in the field and 70's on repeat in the field. Patient was also hypertensive with the 200 systolic. Related Data Home Medications Medication Instructions Recorded Confirmed alfuzosin 10 mg tablet,extended 10 mg PO DAILY 11/23/18 10/25/21 release 24 hr furosemide 20 mg tablet 40 mg PO DAILY 11/23/18 10/25/21 omeprazole 20 mg capsule,delayed 20 mg PO BID 11/23/18 10/25/21 release melatonin 5 mg tablet 5 mg PO BEDTIME 09/24/21 10/25/21 potassium chloride 10 mEq 10 meq PO DAILY 09/24/21 10/25/21 tablet,extended release(part/cryst) trazodone 100 mg tablet 100 mg PO BEDTIME 09/24/21 10/25/21 Osteo Bi-Flex 1 tab PO QAM 10/25/21 10/25/21 glimepiride 4 mg tablet 4 mg PO QAM 10/25/21 10/25/21 Previous Rx's Medication Instructions Recorded aspirin 81 mg tablet,delayed 81 mg PO DAILY #30 tabs 09/27/21 release atorvastatin 80 mg tablet 80 mg PO BEDTIME #90 tabs 09/27/21 lisinopril 20 mg tablet 40 mg PO DAILY #30 tabs 10/26/21 Allergies Allergy/AdvReac Type Severity Reaction Status Date / Time No Known Drug Allergies Allergy Verified 09/24/21 08:38 Review of Systems Review of Systems ROS Unobtainable: All systems reviewed & are unremarkable except as noted in HPI and below Patient History Medical History Dyslipidemia Hypertension Osteoarthritis Social History details: has girlfriend of 3 years household members: family Smoking Status: Former smoker alcohol intake: former substance use type: does not use Smoking Status: Former smoker alcohol intake frequency: 0-2 drinks per day Substance Use Type: does not use Exam Narrative Exam Narrative: GEN: well nourished, well appearing male, alert and oriented x 3, patient appears to be in mild distress. HEENT: Atraumatic, pupils are equal round reactive to light, extraocular movements are intact, nares are clear, TMs are clear with no fluid, there is no conjunctival pallor. Throat is clear without any exudates, erythema, tonsillar enlargement or uvular deviation, mild right facial droop. HEART: Regular rate and rhythm without murmur, clicks, rubs. Pulses are equal in upper and lower extremities LUNGS:Lungs clear to auscultation, no wheezes, rales, crackles, chest moves symmetrically ABD:bowel sounds normal, soft, non-tender, no guarding, rebound, rigidity, no masses noted, no hepatosplenomegaly :No CVA tenderness MSCL: Non-tender, no muscle atrophy, muscles strength 5/5 upper and lower extremities, full range of motion NEURO:CN 2-12 intact, sensation normal, reflexes 2/4 upper and lower extremities. finger nose finger test normal, heel robles test normal, patient has very mild dysarthria but is able to be understood. SKIN: No rash, erythema or other changes. Initial Vital Signs Initial Vital Signs: Vital Signs Pulse Rate 67 10/25/21 13:19 Pulse Oximetry 97 10/25/21 13:19 Scores NIH Stroke Scale Level of Conciousness: Alert, keenly responsive Ask month/age: Answers both questions correctly. Open/close eyes, close hand: Performs both tasks correctly Best gaze horizontal: Normal Visual griggs: No visual loss Facial palsy: Minor paralysis, flattened nasolabial fold, asymmetry on smiling Left arm drift: No drift for full 10 sec Right arm drift: No drift for full 10 sec Left leg drift: No drift for full 5 sec Right leg drift: No drift for full 5 sec Limb ataxia: Absent Sensory on face/arms/legs: Normal, no sensory loss Best language: No aphasia, normal Dysarthria: Mild to mod,some slurring Extinction or inattention: No abnormality Total NIH Stroke scale score: 2 Course Orders Ordered: Discontinued Medications Aspirin (Aspirin 81 Mg Chew Tab) 324 mg PO NOW ONE Stop: 10/25/21 14:57 Last Admin: 10/25/21 15:16 Dose: 324 mg Documented By: RYAN Aspirin (Aspirin Ec 81 Mg Tablet) 81 mg PO DAILY [facility] Last Admin: 10/26/21 08:41 Dose: 81 mg Documented By: EDWIN Atenolol (Atenolol 50 Mg Tablet) 50 mg PO DAILY [facility] Last Admin: 10/26/21 08:49 Dose: Not Given Documented By: EDWIN Atorvastatin Calcium (Atorvastatin 20 Mg Tablet) 80 mg PO BEDTIME [facility] Last Admin: 10/25/21 21:01 Dose: 80 mg Documented By: DARRON Bisacodyl (Bisacodyl 10 Mg Supp) 10 mg FL DAILY PRN PRN Reason: Constipation Clopidogrel Bisulfate (Clopidogrel 75 Mg Tablet) 300 mg PO NOW ONE Stop: 10/25/21 14:57 Last Admin: 10/25/21 15:16 Dose: 300 mg Documented By: RYAN Dextrose (Dextrose 50 % In Water 25 Gm/50 Ml Syringe) 25 gm IV PRN PRN PRN Reason: Hypoglycemia Enoxaparin Sodium (Enoxaparin 40 Mg/0.4 Ml Syringe) 40 mg SUBCUT DAILY [facility] Last Admin: 10/26/21 08:40 Dose: 40 mg Documented By: EDWIN Furosemide (Furosemide 20 Mg Tablet) 40 mg PO DAILY [facility] Last Admin: 10/26/21 08:41 Dose: 40 mg Documented By: EDWIN Hydralazine HCl (Hydralazine 20 Mg/Ml Vial) 10 mg IV Q6HR PRN PRN Reason: Hypertension Last Admin: 10/26/21 11:41 Dose: 10 mg Documented By: Admin: 10/25/21 17:12 Dose: 10 mg Documented By: EDWIN Sodium Chloride (Normal Saline 0.9%) 1,000 mls @ 84 mls/hr IV CONT [facility] Last Admin: 10/25/21 13:50 Dose: 150 mls/hr Documented By: EDUARDO Ibuprofen (Ibuprofen 400 Mg Tablet) 400 mg PO Q8HR [facility] Last Admin: 10/26/21 13:47 Dose: Not Given Documented By: Admin: 10/26/21 05:43 Dose: 400 mg Documented By: Admin: 10/25/21 21:04 Dose: 400 mg Documented By: DARRON Insulin Human Lispro (Insulin Lispro 100 Unit/Ml 3ml Vial) 0 unit SUBCUT [facility]; Protocol Last Admin: 10/26/21 18:04 Dose: Not Given Documented By: Admin: 10/26/21 12:23 Dose: 2 unit Documented By: EDWIN Co-signed By: TYRON Admin: 10/26/21 08:35 Dose: Not Given Documented By: Admin: 10/25/21 21:00 Dose: Not Given Documented By: DARRON Labetalol HCl (Labetalol 20 Mg/4 Ml Syringe) 10 mg IV NOW ONE Stop: 10/25/21 13:39 Last Admin: 10/25/21 13:49 Dose: 10 mg Documented By: EDUARDO Labetalol HCl (Labetalol 20 Mg/4 Ml Syringe) 10 mg IV NOW ONE Stop: 10/25/21 14:03 Last Admin: 10/25/21 14:09 Dose: 10 mg Documented By: RYAN Lisinopril (Lisinopril 20 Mg Tablet) 20 mg PO DAILY [facility] Lisinopril (Lisinopril 20 Mg Tablet) 30 mg PO DAILY [facility] Last Admin: 10/26/21 08:41 Dose: 30 mg Documented By: EDWIN Melatonin (Melatonin 3 Mg Tablet) 6 mg PO BEDTIME [facility] Last Admin: 10/25/21 21:01 Dose: 6 mg Documented By: DARRON Alfuzosin 10 Mg (Tablet Er 24 Hr) 10 mg PO DAILY [facility] Last Admin: 10/26/21 08:43 Dose: Not Given Documented By: EDWIN Ondansetron HCl (Ondansetron 4 Mg Odt) 4 mg PO Q8HR PRN PRN Reason: Nausea And Vomiting Pantoprazole Sodium (Pantoprazole Dr 20 Mg Tablet) 20 mg PO 0600 [facility] Last Admin: 10/26/21 05:43 Dose: 20 mg Documented By: GLO Pantoprazole Sodium (Pantoprazole Dr 20 Mg Tablet) 20 mg PO 0700,2100 [facility] Last Admin: 10/26/21 05:42 Dose: Not Given Documented By: Admin: 10/25/21 21:01 Dose: 20 mg Documented By: DARRON Potassium Chloride (Potassium Chloride 10 Meq Tab) 10 meq PO DAILY [facility] Last Admin: 10/26/21 08:41 Dose: 10 meq Documented By: EDWIN Tramadol HCl (Tramadol 50 Mg Tablet) 50 mg PO Q4H PRN PRN Reason: Pain, Moderate (4-6) Trazodone HCl (Trazodone 100 Mg Tablet) 100 mg PO BEDTIME [facility] Last Admin: 10/25/21 21:00 Dose: 100 mg Documented By: DARRON Reevaluation(s) Reevaluation #1: NIH on repeat 1 at most, facial droop only appreciated with smile. Patient continues to be hypertensive 200's with labetolol x2. Patient unable to give exact onset. Per Time: 14:32 Consultations Consultation #1: Tele-stroke neurology, Dr. Hicks. Patient would potentially be a tPA candidate but is quite hypertensive and not resolving with labetalol, also patient's symptoms are resolving and so at this time felt not to be candidate discussed he has stenosis of 70% and 90% on each ICA, at this time they do not recommend any codeine are other intervention. They do recommend Aspirin 324 mg today, aspirin 81 mg daily followed by Plavix 300 mg today and then Plavix 75 mg p.o. daily times 21 days. Blood pressure control although patient can have permissive hypertension they are willing to tolerate up to the 220 level and agree with not dropping by significant amount. High-dose statin such as 80 mg daily atorvastatin. And appropriate glucose, cholesterol and stroke observation. Time: 14:33 Consultation #2: Dr. Plummer, accepts for admission. Discussed recommendations from neurology. Vital Signs Vital signs: Vital Signs - 8 hr 10/25/21 13:34 10/25/21 13:49 10/25/21 13:19 Temperature 84.7 F L Pulse Rate 64 53 L 67 Respiratory Rate 18 Blood Pressure 215/90 H Pulse Oximetry 99 97 Oxygen Delivery Method Room Air 10/25/21 13:25 10/25/21 13:25 10/25/21 13:26 Temperature Pulse Rate 63 Respiratory Rate 20 Blood Pressure 222/93 H 223/93 H Pulse Oximetry Oxygen Delivery Method 10/25/21 13:26 10/25/21 13:30 10/25/21 13:38 Temperature Pulse Rate 63 61 63 Respiratory Rate 18 19 18 Blood Pressure Pulse Oximetry 99 99 98 Oxygen Delivery Method 10/25/21 13:38 10/25/21 13:40 10/25/21 13:40 Temperature Pulse Rate 57 L Respiratory Rate 21 Blood Pressure 223/95 H 220/96 H Pulse Oximetry 99 Oxygen Delivery Method 10/25/21 13:45 10/25/21 13:45 10/25/21 13:50 Temperature Pulse Rate 54 L 54 L Respiratory Rate 19 20 Blood Pressure 215/90 H Pulse Oximetry 98 99 Oxygen Delivery Method 10/25/21 13:50 10/25/21 14:09 10/25/21 14:00 Temperature Pulse Rate 73 Respiratory Rate Blood Pressure 221/90 H 220/98 H 233/96 H Pulse Oximetry Oxygen Delivery Method 10/25/21 14:00 10/25/21 14:05 10/25/21 14:05 Temperature Pulse Rate 60 60 Respiratory Rate 28 H 25 H Blood Pressure 220/98 H Pulse Oximetry 99 98 Oxygen Delivery Method 10/25/21 14:28 10/25/21 14:28 10/25/21 14:30 Temperature Pulse Rate 55 L 55 L Respiratory Rate 23 16 Blood Pressure 226/93 H Pulse Oximetry 98 98 Oxygen Delivery Method 10/25/21 14:36 10/25/21 14:36 10/25/21 14:40 Temperature Pulse Rate 54 L 53 L Respiratory Rate 19 18 Blood Pressure 235/97 H Pulse Oximetry 99 98 Oxygen Delivery Method 10/25/21 14:40 10/25/21 14:51 10/25/21 14:51 Temperature Pulse Rate 57 L Respiratory Rate 19 Blood Pressure 204/94 H 185/75 H Pulse Oximetry 98 Oxygen Delivery Method MDM - Neuro Symptoms/Deficit Lab Data Result diagrams: 10/26/21 06:50 10/25/21 13:30 Labs: Lab Results 10/25/21 10/25/21 10/25/21 Range/Units 13:30 13:30 13:30 WBC 9.1 (4.5-11.0) X10^3/uL RBC 3.31 L (4.5-5.9) X10^6/uL Hgb 9.9 L (13.5-17.5) g/dL Hct 29.0 L (41-53) % MCV 87.7 (80-100) fL MCH 29.9 (26-34) PG MCHC 34.1 (30-36) % RDW 15.2 H (11.6-14.8) % Plt Count 207 (150-400) X10^3/uL Neut % (Auto) 82.1 H (50-75) % Lymph % (Auto) 9.1 L (25-40) % [place] % (Auto) 6.9 (3-14) % Eos % (Auto) 0.9 L (2-4) % Baso % (Auto) 1.0 (0-2) % Neut # (Auto) 7500 H (0200-4424) /uL Lymph # (Auto) 800 L (1294-1115) /uL [place] # (Auto) 600 (0-900) /uL Eos # (Auto) 100 (0-450) /uL Baso # (Auto) 100 (0-100) /uL PT 12.2 (10.1-12.7) SECONDS INR 1.1 (0.9-1.3) APTT 29 D (26.4-36.2) SECONDS Sodium 139 (137-145) mmol/L Potassium 4.1 (3.4-5.1) mmol/L Chloride 105 (98-107) mmol/L Carbon Dioxide 25 (22-32) mmol/L BUN 21 H (9-20) mg/dL Creatinine 1.63 H (0.66-1.25) mg/dL Estimated GFR 42 L (>60) mL/min BUN/Creatinine Ratio 12.9 (6-22) Glucose 81 (80-110) mg/dL Hemoglobin A1c (4.0-6.0) % Calcium 8.2 L (8.4-10.2) mg/dL Total Creatine Kinase 161 (55-170) U/L CK-MB (CK-2) 1.99 (<2.37) ng/mL CK-MB (CK-2) Rel Index 1.2 L (1.5-5.0) % Troponin I 0.026 (0.01-0.034) ng/mL Urine Color Urine Appearance Urine pH (4.5-8.0) Ur Specific [place] (1.000-1.035) Urine Protein (Negative) Urine Glucose (UA) (Negative) g/dL Urine Ketones (NEGATIVE) Urine Occult Blood (Negative) Urine Nitrate (Negative) Urine Bilirubin (NEGATIVE) Urine Urobilinogen (0.2) E.U./dL Ur Leukocyte Esterase (NEGATIVE) Urine RBC (0-5/HPF) Urine WBC (0-5/HPF) Ur Squamous Epith Cells (0-5/HPF) Urine Bacteria (None) Ur Culture Indicated? Micro UA Comment U Opiates 300ng/mL cut (Negative) Ur Oxycodone Screen (Negative) Urine Methadone Screen (Negative) Ur Barbiturates Screen (Negative) U Tricyclic Antidepress (Negative) Ur Phencyclidine Scrn (Negative) Ur Amphetamines Screen (Negative) U Methamphetamines Scrn (Negative) Ur MDMA Scrn (Ecstasy) (Negative) U Benzodiazepines Scrn (Negative) Urine Cocaine Screen (Negative) U Marijuana (THC) Screen (Negative) SARS-CoV-2 (PCR) (Negative) 10/25/21 10/25/21 10/25/21 Range/Units 13:30 13:30 13:32 WBC (4.5-11.0) X10^3/uL RBC (4.5-5.9) X10^6/uL Hgb (13.5-17.5) g/dL Hct (41-53) % MCV (80-100) fL MCH (26-34) PG MCHC (30-36) % RDW (11.6-14.8) % Plt Count (150-400) X10^3/uL Neut % (Auto) (50-75) % Lymph % (Auto) (25-40) % [place] % (Auto) (3-14) % Eos % (Auto) (2-4) % Baso % (Auto) (0-2) % Neut # (Auto) (6390-4675) /uL Lymph # (Auto) (5070-0272) /uL [place] # (Auto) (0-900) /uL Eos # (Auto) (0-450) /uL Baso # (Auto) (0-100) /uL PT (10.1-12.7) SECONDS INR (0.9-1.3) APTT (26.4-36.2) SECONDS Sodium (137-145) mmol/L Potassium (3.4-5.1) mmol/L Chloride (98-107) mmol/L Carbon Dioxide (22-32) mmol/L BUN (9-20) mg/dL Creatinine (0.66-1.25) mg/dL Estimated GFR (>60) mL/min BUN/Creatinine Ratio (6-22) Glucose (80-110) mg/dL Hemoglobin A1c 6.1 H (4.0-6.0) % Calcium (8.4-10.2) mg/dL Total Creatine Kinase (55-170) U/L CK-MB (CK-2) (<2.37) ng/mL CK-MB (CK-2) Rel Index (1.5-5.0) % Troponin I (0.01-0.034) ng/mL Urine Color Yellow Urine Appearance Clear Urine pH 5.0 (4.5-8.0) Ur Specific [place] 1.010 (1.000-1.035) Urine Protein Trace H (Negative) Urine Glucose (UA) Negative (Negative) g/dL Urine Ketones Negative (NEGATIVE) Urine Occult Blood Trace-lysed (Negative) Urine Nitrate Negative (Negative) Urine Bilirubin Negative (NEGATIVE) Urine Urobilinogen 0.2 (0.2) E.U./dL Ur Leukocyte Esterase Negative (NEGATIVE) Urine RBC None seen (0-5/HPF) Urine WBC None seen (0-5/HPF) Ur Squamous Epith Cells 0-1 /hpf (0-5/HPF) Urine Bacteria Occasional (0-1) (None) Ur Culture Indicated? Cult not indicated Micro UA Comment Microscopic normal U Opiates 300ng/mL cut (Negative) Ur Oxycodone Screen (Negative) Urine Methadone Screen (Negative) Ur Barbiturates Screen (Negative) U Tricyclic Antidepress (Negative) Ur Phencyclidine Scrn (Negative) Ur Amphetamines Screen (Negative) U Methamphetamines Scrn (Negative) Ur MDMA Scrn (Ecstasy) (Negative) U Benzodiazepines Scrn (Negative) Urine Cocaine Screen (Negative) U Marijuana (THC) Screen (Negative) SARS-CoV-2 (PCR) Negative (Negative) 10/25/21 Range/Units 13:38 WBC (4.5-11.0) X10^3/uL RBC (4.5-5.9) X10^6/uL Hgb (13.5-17.5) g/dL Hct (41-53) % MCV (80-100) fL MCH (26-34) PG MCHC (30-36) % RDW (11.6-14.8) % Plt Count (150-400) X10^3/uL Neut % (Auto) (50-75) % Lymph % (Auto) (25-40) % [place] % (Auto) (3-14) % Eos % (Auto) (2-4) % Baso % (Auto) (0-2) % Neut # (Auto) (4658-8485) /uL Lymph # (Auto) (5002-1006) /uL [place] # (Auto) (0-900) /uL Eos # (Auto) (0-450) /uL Baso # (Auto) (0-100) /uL PT (10.1-12.7) SECONDS INR (0.9-1.3) APTT (26.4-36.2) SECONDS Sodium (137-145) mmol/L Potassium (3.4-5.1) mmol/L Chloride (98-107) mmol/L Carbon Dioxide (22-32) mmol/L BUN (9-20) mg/dL Creatinine (0.66-1.25) mg/dL Estimated GFR (>60) mL/min BUN/Creatinine Ratio (6-22) Glucose (80-110) mg/dL Hemoglobin A1c (4.0-6.0) % Calcium (8.4-10.2) mg/dL Total Creatine Kinase (55-170) U/L CK-MB (CK-2) (<2.37) ng/mL CK-MB (CK-2) Rel Index (1.5-5.0) % Troponin I (0.01-0.034) ng/mL Urine Color Urine Appearance Urine pH (4.5-8.0) Ur Specific [place] (1.000-1.035) Urine Protein (Negative) Urine Glucose (UA) (Negative) g/dL Urine Ketones (NEGATIVE) Urine Occult Blood (Negative) Urine Nitrate (Negative) Urine Bilirubin (NEGATIVE) Urine Urobilinogen (0.2) E.U./dL Ur Leukocyte Esterase (NEGATIVE) Urine RBC (0-5/HPF) Urine WBC (0-5/HPF) Ur Squamous Epith Cells (0-5/HPF) Urine Bacteria (None) Ur Culture Indicated? Micro UA Comment U Opiates 300ng/mL cut Negative (Negative) Ur Oxycodone Screen Negative (Negative) Urine Methadone Screen Negative (Negative) Ur Barbiturates Screen Negative (Negative) U Tricyclic Antidepress Negative (Negative) Ur Phencyclidine Scrn Negative (Negative) Ur Amphetamines Screen Negative (Negative) U Methamphetamines Scrn Negative (Negative) Ur MDMA Scrn (Ecstasy) Negative (Negative) U Benzodiazepines Scrn Negative (Negative) Urine Cocaine Screen Negative (Negative) U Marijuana (THC) Screen Negative (Negative) SARS-CoV-2 (PCR) (Negative) Point of Care Testing Glucose POC [address] scan - head: Radiologist's Impression: prelim Read negative. Dr. Yates. CTA - brain/neck: Radiologist's Impression: CTA shows 70% stenosis and 90% stenosis. No other acute lesions. ECG Data Attestation: I personally reviewed and interpreted this ECG as follows: Prior ECG tracings: available for review Interpretation: Sinus rhythm rate of 60 3p are 178 QRS of 110 QTC 446. Q-wave in 3 and AVF, ST depression V5 6. Seen in prior EKGs. No acute EKG changes otherwise appreciated. MDM Narrative Medical decision making narrative: This is an 81-year-old male with last known normal approximately an hour prior to arrival. Patient was significantly hypertensive in the field and with us. He did not respond well to labetalol had minimal improvement initially. His NIH is 2 upon arrival although he had significantly worse aphasia dysarthria reported in the field with medics state had been improving as he arrives. Patient during his stay became NIH of 1 secondary to facial droop when smiling but his speech has cleared and is appropriate. Patient's head CT shows no acute change, CT angio shows significant 70% 90% change at the ICAs but no other acute changes he was noted to have stenosis on his last CT angio as well. He is on aspirin daily he is likely a fall risk and has had multiple falls in the past. TPA was deferred secondary to improving symptoms and persistent hypertension despite treatment. Case was discussed with Telestroke neurology agrees with current plans and recommendations are included above. Patient was admitted to Dr. Plummer for observation. Stroke Core Measures Exclusion Criteria TPA in CVA: Unknown Onset of Symptoms Contraindications for TPA in CVA: SBP>185;DBP>110 Despite Repeated Treatment and Determinations Discharge Plan Departure Patient Disposition: Admitted As Inpatient Clinical Impression: Acute CVA (cerebrovascular accident), Hypertension Admit Date/Time: 10/25/21 15:02 Admit Provider: Henri Plummer
[2021-10-25 13:43] LABS: Add Manual Diff / Slide Review NO; Basophils Absolute Auto 100 /uL (0-100); Eosinophils Absolute Auto 100 /uL (0-450); Eosinophils Percent Auto 0.9 % (2-4); Hemoglobin 9.9 g/dL (13.5-17.5); Lymphocytes Absolute Auto 800 /uL (1100-4500); Lymphocytes Percent Auto 9.1 % (25-40); Mean Corpuscular HGB Conc 34.1 % (30-36); Mean Corpuscular Hemoglobin 29.9 PG (26-34); Mean Corpuscular Volume 87.7 fL (80-100); Monocytes Absolute Auto 600 /uL (0-900); Monocytes Percent Auto 6.9 % (3-14); Neutrophils Absolute Auto 7500 /uL (1500-7000); Neutrophils Percent Auto 82.1 % (50-75); Platelet Count 207 X10^3/uL (150-400); Red Blood Cell Count 3.31 X10^6/uL (4.5-5.9); Red Cell Distribution Width 15.2 % (11.6-14.8); White Blood Cell Count 9.1 X10^3/uL (4.5-11.0)
[2021-10-25] MEDS: LABETALOL 20 MG/4 ML SYRINGE 10 MG IV ×2 (13:49→14:09)
[2021-10-25] MEDS: SODIUM CHLORIDE 0.9% 1,000 ML 150 ML IV (13:50)
[2021-10-25 13:52] LABS: INR 1.1 (0.9-1.3); Prothrombin Time 12.2 SECONDS (10.1-12.7)
[2021-10-25 13:54] LABS: PTT Partial Thromboplastin Tim 29 SECONDS (26.4-36.2)
[2021-10-25 13:55] LABS: BUN Creatinine Ratio 12.9 (6-22); Blood Urea Nitrogen 21 mg/dL (9-20); Calcium 8.2 mg/dL (8.4-10.2); Carbon Dioxide 25 mmol/L (22-32); Chloride 105 mmol/L (98-107); Creatine Kinase 161 U/L (55-170); Estimated Glomerular Filt Rate 42 mL/min (>60); Glucose 81 mg/dL (80-110); HEMOLYSIS < 15 (0-50); Potassium 4.1 mmol/L (3.4-5.1); Sodium 139 mmol/L (137-145)
[2021-10-25 13:56] LABS: UR Morphine/Opiate cutoff 300 Negative (Negative); Ur Creatinine Normal (Normal); Ur Specific Gravity Normal (Normal); Urine Amphetamines Negative (Negative); Urine Barbiturates Negative (Negative); Urine Benzodiazepines Negative (Negative); Urine Cocaine Negative (Negative); Urine MDMA Negative (Negative); Urine Methadone Negative (Negative); Urine Methamphetamines Negative (Negative); Urine Oxycodone Negative (Negative); Urine Phencyclidine Negative (Negative); Urine Tetrahydrocannabinol Negative (Negative); Urine Tricyclic Antidepressant Negative (Negative); Urine pH Normal (Normal)
[2021-10-25 14:03] LABS: Appearance Urine UA CLEAR; Bilirubin Urine UA NEGATIVE (NEGATIVE); Color Urine UA YELLOW; Glucose Urine UA NEGATIVE (Negative); Ketones Urine UA NEGATIVE (NEGATIVE); Leukocyte Esterase Urine UA NEGATIVE (NEGATIVE); Nitrite Urine UA NEGATIVE (Negative); Occult Blood Urine UA TRACE-LYSED (Negative); Protein Urine UA TRACE (Negative); Urobilinogen Urine UA 0.2 E.U./dL (0.2)
[2021-10-25 14:08] LABS: Troponin I 0.026 ng/mL (0.01-0.034)
[2021-10-25 14:09] LABS: COVID19 -Nasal RAPID Negative (Negative)
[2021-10-25 14:11] LABS: CKMB % Relative Index 1.2 % (1.5-5.0); Creatine Kinase MB 1.99 ng/mL (<2.37)
[2021-10-25 14:35] LABS: Bacteria Urine Occasional (0-1); Culture Indicated Urine Cult Not Indicated; RBC Urine None Seen (0-5/HPF); Squamous Epithelial Cell Urine 0-1 /HPF (0-5/HPF); Urine Comments Microscopic Normal; WBC Urine None Seen (0-5/HPF)
[2021-10-25] MEDS: CLOPIDOGREL 75 MG TABLET 300 MG PO (15:16)
[2021-10-25] MEDS: ASPIRIN 81 MG CHEW TAB 324 MG PO (15:16)
--- NOTE | 2021-10-25 16:52 | DI.MRI.S_ITS ---
PROCEDURE: MR HEAD/BRAIN WO CON INDICATIONS: word salad suspect cva TECHNIQUE: Non-contrast axial T1 spin echo, axial T2 fast spin echo, sagittal and axial FLAIR, coronal T2 fast spin echo, axial gradient echo, axial diffusion and ADC through the brain. COMPARISON: None. FINDINGS: Image quality: Excellent. CSF spaces: Ventricles appear symmetric in size and shape. Basal cisterns are patent. No extra-axial fluid collections. Brain: No intracranial bleeds or mass effects. There is cerebral volume loss for age. There are periventricular and deep white matter chronic small vessel ischemic changes. Small lacunar infarct in the right basal ganglia and left external capsule. Brainstem appears normal. Diffusion-weighted images show no acute ischemic insults. No chronic ischemic insults. Normal intravascular flow voids are present. Skull and face: Calvarial bone marrow is normal in signal. Orbits are normal. Sinuses: Sinuses and mastoids are clear. IMPRESSION: 1. No acute intracranial abnormality. No acute ischemia. 2. Minimal microvascular ischemic disease. 3. Small remote lacunar infarcts in the right basal ganglia and left external capsule. Dictated by: Pedro Yates M.D. on 10/26/2021 at 11:45 Approved by: Pedro Yates M.D. on 10/26/2021 at 11:48
--- NOTE | 2021-10-25 16:54 | P.HP_ITS ---
History of Present Illness History of Present Illness Date Patient Seen: 10/25/21 Time Patient Seen: 16:54 Date of Onset of Symptoms: 10/25/21 Chief complaint: Code stroke Narrative: CC: Well they told me I had a little stroke Pt was at the [place] here in town today when an associate told him he was really talking very strangely and should go to the ER. He does have hx of significant carotid stenosis and does smoke a pipe. 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 BP quite high on presentation, some world salad and aphasia noted in ED which seems to be resolving, consultation with stroke specialists advised against intervention with tPA, CTA did not reveal any thrombus amenable to addression. On exam today he reports he feels basically fine appetite and balance ok he is ambulating to the bathroom ok there is some garbled speech on repeating phrases but uh frankly having met this patient before he can have rather garbled speech at baseline. Patient History Medical History Dyslipidemia Hypertension Osteoarthritis Family & Social History Social History: household members family Prior Living Arrangements Apartment/Condo Safety & Behavioral: Feels Safe in Current Yes Environment Been Physically Hurt or No Threatened By a Person Tobacco & Substance use: Tobacco type cigarettes Smoking Status Former smoker alcohol intake former alcohol intake frequency 0-2 drinks per day Substance Use Type does not use Meds Home Medications and Allergies Home Medications Medication Instructions Recorded Confirmed Type atenolol 50 mg tablet 50 mg PO DAILY ##0 06/03/10 10/25/21 History alfuzosin 10 mg tablet,extended 10 mg PO DAILY 11/23/18 10/25/21 History release 24 hr furosemide 20 mg tablet 40 mg PO DAILY 11/23/18 10/25/21 History omeprazole 20 mg capsule,delayed 20 mg PO BID 11/23/18 10/25/21 History release melatonin 5 mg tablet 5 mg PO BEDTIME 09/24/21 10/25/21 History potassium chloride 10 mEq 10 meq PO DAILY 09/24/21 10/25/21 History tablet,extended release(part/cryst) trazodone 100 mg tablet 100 mg PO BEDTIME 09/24/21 10/25/21 History aspirin 81 mg tablet,delayed 81 mg PO DAILY #30 tabs 09/27/21 10/25/21 Rx release atorvastatin 80 mg tablet 80 mg PO BEDTIME #90 tabs 09/27/21 10/25/21 Rx Osteo Bi-Flex 1 tab PO QAM 10/25/21 10/25/21 History glimepiride 4 mg tablet 4 mg PO QAM 10/25/21 10/25/21 History lisinopril 20 mg tablet 20 mg PO DAILY 10/25/21 10/25/21 History Allergies Allergy/AdvReac Type Severity Reaction Status Date / Time No Known Drug Allergies Allergy Verified 09/24/21 08:38 Review of Systems Review of Systems Narrative: all systems reviewed and negative except as otherwise documented in HPI Exam Vital Signs (past 8 hours): - 10/25/21 13:34 10/25/21 13:49 10/25/21 13:19 Temperature 84.7 F L Pulse Rate 64 53 L 67 Respiratory Rate 18 Blood Pressure 215/90 H Pulse Oximetry 99 97 Oxygen Delivery Method Room Air Oxygen Flow Rate 10/25/21 13:25 10/25/21 13:25 10/25/21 13:26 Temperature Pulse Rate 63 Respiratory Rate 20 Blood Pressure 222/93 H 223/93 H Pulse Oximetry Oxygen Delivery Method Oxygen Flow Rate 10/25/21 13:26 10/25/21 13:30 10/25/21 13:38 Temperature Pulse Rate 63 61 63 Respiratory Rate 18 19 18 Blood Pressure Pulse Oximetry 99 99 98 Oxygen Delivery Method Oxygen Flow Rate 10/25/21 13:38 10/25/21 13:40 10/25/21 13:40 Temperature Pulse Rate 57 L Respiratory Rate 21 Blood Pressure 223/95 H 220/96 H Pulse Oximetry 99 Oxygen Delivery Method Oxygen Flow Rate 10/25/21 13:45 10/25/21 13:45 10/25/21 13:50 Temperature Pulse Rate 54 L 54 L Respiratory Rate 19 20 Blood Pressure 215/90 H Pulse Oximetry 98 99 Oxygen Delivery Method Oxygen Flow Rate 10/25/21 13:50 10/25/21 14:09 10/25/21 14:00 Temperature Pulse Rate 73 Respiratory Rate Blood Pressure 221/90 H 220/98 H 233/96 H Pulse Oximetry Oxygen Delivery Method Oxygen Flow Rate 10/25/21 14:00 10/25/21 14:05 10/25/21 14:05 Temperature Pulse Rate 60 60 Respiratory Rate 28 H 25 H Blood Pressure 220/98 H Pulse Oximetry 99 98 Oxygen Delivery Method Oxygen Flow Rate 10/25/21 14:28 10/25/21 14:28 10/25/21 14:30 Temperature Pulse Rate 55 L 55 L Respiratory Rate 23 16 Blood Pressure 226/93 H Pulse Oximetry 98 98 Oxygen Delivery Method Oxygen Flow Rate 10/25/21 14:36 10/25/21 14:36 10/25/21 14:40 Temperature Pulse Rate 54 L 53 L Respiratory Rate 19 18 Blood Pressure 235/97 H Pulse Oximetry 99 98 Oxygen Delivery Method Oxygen Flow Rate 10/25/21 14:40 10/25/21 14:51 10/25/21 14:51 Temperature Pulse Rate 57 L Respiratory Rate 19 Blood Pressure 204/94 H 185/75 H Pulse Oximetry 98 Oxygen Delivery Method Oxygen Flow Rate 10/25/21 15:03 10/25/21 15:03 10/25/21 15:14 Temperature Pulse Rate 49 L 50 L Respiratory Rate Blood Pressure 185/75 H 185/75 H Pulse Oximetry Oxygen Delivery Method Room Air Oxygen Flow Rate 10/25/21 15:40 Temperature 97.6 F Pulse Rate 60 Respiratory Rate 16 Blood Pressure 226/80 H Pulse Oximetry 99 Oxygen Delivery Method Oxygen Flow Rate 0 Oxygen Delivery Method Room Air Oxygen Flow Rate 0 Narrative Exam Narrative: seasoned elder laying in hospital bed Const General: cooperative, healthy appearing and well developed [facility] Head: normal to inspection and normocephalic Eyes General: appearance normal, both eyes and all related structures Neck Neck: normal visual inspection, full ROM and trachea midline Resp Auscultation: clear to auscultation bilaterally Cardio Other: slow rate, apparently normal rhythm, S1/S2 GI Inspection: normal to inspection Palpation: soft and No tender Auscultation: normal bowel sounds Skin General: other (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) Neuro General: patient alert, patient awake, patient oriented x3, moves all extremities, CN's II-XI intact bilaterally and deep tendon reflexes 2+ bilaterally Extrem General: normal to inspection and full ROM Psych Appearance: grossly normal and other Speech and Movement: slurred speech and other (movement normal) Mood: congruent mood Affect: normal affect Attitude: cooperative Objective Labs Result Diagrams: 10/25/21 13:30 10/25/21 13:30 Labs: Laboratory Results - last 24 hr 10/25/21 10/25/21 10/25/21 13:30 13:30 13:30 WBC 9.1 RBC 3.31 L Hgb 9.9 L Hct 29.0 L MCV 87.7 MCH 29.9 MCHC 34.1 RDW 15.2 H Plt Count 207 Neut % (Auto) 82.1 H Lymph % (Auto) 9.1 L [place] % (Auto) 6.9 Eos % (Auto) 0.9 L Baso % (Auto) 1.0 Neut # (Auto) 7500 H Lymph # (Auto) 800 L [place] # (Auto) 600 Eos # (Auto) 100 Baso # (Auto) 100 PT 12.2 INR 1.1 APTT 29 D Sodium 139 Potassium 4.1 Chloride 105 Carbon Dioxide 25 BUN 21 H Creatinine 1.63 H Estimated GFR 42 L BUN/Creatinine Ratio 12.9 Glucose 81 Calcium 8.2 L Total Creatine Kinase 161 CK-MB (CK-2) 1.99 CK-MB (CK-2) Rel Index 1.2 L Troponin I 0.026 Urine Color Urine Appearance Urine pH Ur Specific [place] Urine Protein Urine Glucose (UA) Urine Ketones Urine Occult Blood Urine Nitrate Urine Bilirubin Urine Urobilinogen Ur Leukocyte Esterase Urine RBC Urine WBC Ur Squamous Epith Cells Urine Bacteria Ur Culture Indicated? Micro UA Comment U Opiates 300ng/mL cut Ur Oxycodone Screen Urine Methadone Screen Ur Barbiturates Screen U Tricyclic Antidepress Ur Phencyclidine Scrn Ur Amphetamines Screen U Methamphetamines Scrn Ur MDMA Scrn (Ecstasy) U Benzodiazepines Scrn Urine Cocaine Screen U Marijuana (THC) Screen SARS-CoV-2 (PCR) 10/25/21 10/25/21 10/25/21 13:30 13:32 13:38 WBC RBC Hgb Hct MCV MCH MCHC RDW Plt Count Neut % (Auto) Lymph % (Auto) [place] % (Auto) Eos % (Auto) Baso % (Auto) Neut # (Auto) Lymph # (Auto) [place] # (Auto) Eos # (Auto) Baso # (Auto) PT INR APTT Sodium Potassium Chloride Carbon Dioxide BUN Creatinine Estimated GFR BUN/Creatinine Ratio Glucose Calcium Total Creatine Kinase CK-MB (CK-2) CK-MB (CK-2) Rel Index Troponin I Urine Color Yellow Urine Appearance Clear Urine pH 5.0 Ur Specific [place] 1.010 Urine Protein Trace H Urine Glucose (UA) Negative Urine Ketones Negative Urine Occult Blood Trace-lysed Urine Nitrate Negative Urine Bilirubin Negative Urine Urobilinogen 0.2 Ur Leukocyte Esterase Negative Urine RBC None seen Urine WBC None seen Ur Squamous Epith Cells 0-1 /hpf Urine Bacteria Occasional (0-1) Ur Culture Indicated? Cult not indicated Micro UA Comment Microscopic normal U Opiates 300ng/mL cut Negative Ur Oxycodone Screen Negative Urine Methadone Screen Negative Ur Barbiturates Screen Negative U Tricyclic Antidepress Negative Ur Phencyclidine Scrn Negative Ur Amphetamines Screen Negative U Methamphetamines Scrn Negative Ur MDMA Scrn (Ecstasy) Negative U Benzodiazepines Scrn Negative Urine Cocaine Screen Negative U Marijuana (THC) Screen Negative SARS-CoV-2 (PCR) Negative Assessment & Plan Assessment & Plan narrative: #TIA/CVA #carotid stenosis, bilateral, severe Based on clinical presentation which is improving. Continue stroke workup with MRI. Some persistent verbal symptoms. Permissive HTN aim for SBP 160-180 #Hypertension, chronic, uncontrolled, hypertensive crisis today systiolic up to the 220s despite getting labetalol in ED. PRN hydralazine ordered Permissive hypertension strategy, treat with hydralazine for SPB >180 resume home atenolol 50 mg p.o. q.day, lisinopril 30 mg p.o. q.day, and furosemide 40 mg p.o. q.day. #Anemia, normocytic/normochromic, chronic at basline Likely anemia of chronic disease, will trend labs. I note a little neutrophilic mobilization too will keep an eye on that. #Diabetes mellitus 2, chronic #monitor blood sugars closely and start SSI with fingersticks hold home meds #Chronic renal failure, Stage 3B Not far off baseline, giving some IVF and trending #Hyperlipidemia, chronic continue home atorvastatin 80 mg p.o. q.day. #BPH, chronic Continue home alfuzosin 10 mg p.o. q.day Insomnia, chronic Continue home trazodone 100 mg p.o. q.h.s. #tobacco abuse advised to quit, prn nicotine patch as desired FEN:? PO fluids, carb consistent diet DVT prophylaxis:? Lovenox GI prophylaxis:? Protonix Code: full MDM: sister Heydi in [place] Disposition:? obs for stroke w/u, may be able to complete as outpt if recovered well by tomorrow. Time Spent With Patient Critical Care time: I spent a total of [] minutes of critical care time on this patient's care today; this time is exclusive of procedural time.
[2021-10-25] MEDS: HYDRALAZINE 20 MG/ML VIAL 10 MG IV (17:12)
--- NOTE | 2021-10-25 18:40 | PC.NURSE ---
Pt admitted from ED around 1600 for stroke. Pt's NIH score was -2 in ED and it is resolved later. Pt was slightly slurred speech in ED. VSS except BP is very high consistently. BP-223/78 when pt arrived to the unit. Pt was given PRN IV Hydralazine 10mg but not very effective. BP-208/72 after an hour. Pt is eating well, no c/o pain or chest pain. BG-96 before dinner. Pt is urinating well. Continue monitor.
[2021-10-25 20:19] LABS: Hemoglobin A1C% w Est Avg Glu 6.1 % (4.0-6.0)
[2021-10-25] MEDS: TRAZODONE 100 MG TABLET PO (21:00)
[2021-10-25] MEDS: PANTOPRAZOLE DR 20 MG TABLET PO (21:01)
[2021-10-25] MEDS: MELATONIN 3 MG TABLET 6 MG PO (21:01)
[2021-10-25] MEDS: ATORVASTATIN 20 MG TABLET 80 MG PO (21:01)
[2021-10-25] MEDS: DEXTROSE 10 % IN WATER 1,000 ML 999 ML IV (21:02)
[2021-10-25] MEDS: IBUPROFEN 400 MG TABLET PO (21:04)
[2021-10-26 01:50] VITALS: BP 147/39; PULSE 54; RESP 16; TEMP 36.4; O2SAT 99
[2021-10-26] MEDS: PANTOPRAZOLE DR 20 MG TABLET PO (05:43)
[2021-10-26] MEDS: IBUPROFEN 400 MG TABLET PO (05:43)
[2021-10-26 07:05] LABS: Add Manual Diff / Slide Review NO; Basophils Absolute Auto 0 /uL (0-100); Basophils Percent Auto 0.4 % (0-2); Eosinophils Absolute Auto 300 /uL (0-450); Eosinophils Percent Auto 3.7 % (2-4); Hematocrit 28.3 % (41-53); Hemoglobin 9.7 g/dL (13.5-17.5); Lymphocytes Absolute Auto 1200 /uL (1100-4500); Lymphocytes Percent Auto 17.2 % (25-40); Mean Corpuscular HGB Conc 34.1 % (30-36); Mean Corpuscular Hemoglobin 29.5 PG (26-34); Mean Corpuscular Volume 86.7 fL (80-100); Monocytes Absolute Auto 700 /uL (0-900); Monocytes Percent Auto 10.4 % (3-14); Neutrophils Absolute Auto 4700 /uL (1500-7000); Neutrophils Percent Auto 68.3 % (50-75); Platelet Count 207 X10^3/uL (150-400); Red Blood Cell Count 3.27 X10^6/uL (4.5-5.9)
[2021-10-26 07:35] VITALS: BP 154/46; PULSE 53; RESP 18; TEMP 36.7; O2SAT 99
[2021-10-26] MEDS: ENOXAPARIN 40 MG/0.4 ML SYRINGE SUBCUT (08:40)
[2021-10-26 08:41] VITALS: BP 154/46; PULSE 53
[2021-10-26] MEDS: FUROSEMIDE 20 MG TABLET 40 MG PO (08:41)
[2021-10-26] MEDS: lisinopriL 20 MG TABLET 30 MG PO (08:41)
[2021-10-26] MEDS: POTASSIUM CHLORIDE 10 MEQ TAB PO (08:41)
[2021-10-26] MEDS: ASPIRIN EC 81 MG TABLET PO (08:41)
--- NOTE | 2021-10-26 10:24 | CM.DANOTE ---
DCP Assessment: Payor: Yvette PCP: MD Kavitha Pt is a vick 81 y.o. M who presented to the ER for stroke symptoms. Pt [facility] and an associate told him he was talking strangely and needed medical attention. Pt has a PMH of dyslipidemia, HTN, osteoarthritis, and carotid stenosis. Pt currently smokes a pipe. Pt was admitted to the floor for CVA workup and eval. DCP met with pt bedside this morning. Pt sitting up in bed watching TV. DCP introduced herself and role. Pt states that [place] in the [place]. DCP confirmed [address]. Pt states that he is independent at baseline but uses a cane occasionally. Pt also states he owns a walker but does not use. Pt states that he currently drives his van. Pt states that his friend, Haseeb, is a good contact. DCP inquired about transportation upon discharge. Pt states that he would have a friend pick him up and take him home. HH discussion had. Pt unsure about HH. DCP to continue to follow. Pt had no other questions. White board updated and instructed to call. P: Once pt is medically stable to discharge, pt to discharge home via friend POV. R/o HH. Marylu Chen RN/CHARLIE Discharge Planning/Care Management CM Discharge Assessment Start: 10/26/21 08:34 Freq: Status: Active Protocol: Document 10/26/21 10:22 VIK (Rec: 10/26/21 10:23 [id number]) Discharge Planning Assessment Assigned Logistics Engineer Marylu Chen RN/CHARLIE Advance Directives? No History Provided By Patient,Friend,Medical Record Prior Living Arrangements Apartment/Condo Type of transporation used prior to Drives own vehicle admit Caregiver for Another No DME Already Rented / Owned FWW / Walker,Cane Discharge Plan Home Transportation Arrangement Friend POV Referrals Initiated None needed Additional Comment At this time. Maybe HH Whiteboard Updated in Patient Room with Yes name and ext. # of Logistics Engineer Comment Instructed to call Review Status In Process Please Provide Date Initial DC 10/26/21 Assessment Was Performed Next Review Type Continued Stay Review
[2021-10-26 11:20] VITALS: BP 192/68; PULSE 57; RESP 18; TEMP 36.7; O2SAT 98
[2021-10-26 11:41] VITALS: BP 192/68; PULSE 58
[2021-10-26] MEDS: HYDRALAZINE 20 MG/ML VIAL 10 MG IV (11:41)
[2021-10-26] MEDS: INSULIN LISPRO 100 UNIT/ML 3ML VIAL SUBCUT (12:23)
[2021-10-26 12:31] VITALS: BP 177/54; PULSE 62
--- NOTE | 2021-10-26 13:34 | PM.DS.1 ---
History of Present Illness History of Present Illness Date Patient Seen: 10/26/21 Time Patient Seen: 13:34 Date of Onset of Symptoms: 10/25/21 Chief complaint: Code stroke Narrative: CC: Well they told me I had a little stroke Word salad improved he is NIHSS zero today basically MRI brain showed no acute stroke but likely several old pinpoint ones Reviewed medication list at length will plan on close f/u outpt Pulse too low for nursing to give BB this morning will stop and increase MALORIE for now Discharge Providers Provider Date of admission: 10/25/21 15:02 Discharge Date: 10/26/21 Primary care physician: Henri Plummer MD Discharge provider: Henri Plummer MD Summary Hospital Course Discharge Diagnosis: #CVA/TIA #carotid stenosis, bilateral, severe #Hypertension, chronic, uncontrolled, hypertensive crisis on admission #Anemia, normocytic/normochromic, chronic at basline #Diabetes mellitus 2, chronic #Chronic renal failure, Stage 3B #Hyperlipidemia, chronic #BPH, chronic #Insomnia, chronic #hx of tobacco abuse Hospital Course: Mr. Baugh was admitted for observation and stroke workup which did demonstrate some old lacunar strokes but nothing acute or subacute lately, with evident resolution of all aphasic and lateralizing motor symptoms. He does have issues of labile HTN and carotid stenonsis which may be a large factor in his presentation. Due to low pulse will hold atenolol and discharge and double lisinopril dose. continue asa 81 and atorvastatin 80. Status at Discharge Cognitive/behavioral status at discharge: at baseline, oriented Functional status at discharge: independent ambulation Overall status at discharge: patient is back to baseline Time Spent with Patient Time spent discussing smoking cessation with patient: 3 to 10 minutes Exam Vital Signs (past 8 hours): - 10/26/21 07:35 10/26/21 08:41 10/26/21 11:20 Temperature 98.1 F 98.0 F Pulse Rate 53 L 53 L 57 L Respiratory Rate 18 18 Blood Pressure 154/46 H 154/46 H 192/68 H Pulse Oximetry 99 98 Oxygen Delivery Method Oxygen Flow Rate 0 0 10/26/21 11:41 10/26/21 07:00 10/26/21 07:00 Temperature Pulse Rate 58 L Respiratory Rate Blood Pressure 192/68 H Pulse Oximetry Oxygen Delivery Method Room Air Room Air Oxygen Flow Rate 10/26/21 12:31 Temperature Pulse Rate 62 Respiratory Rate Blood Pressure 177/54 H Pulse Oximetry Oxygen Delivery Method Oxygen Flow Rate Oxygen Delivery Method Room Air Oxygen Flow Rate 0 Narrative Exam Narrative: laying in bed comfortably Const General: cooperative, healthy appearing, comfortable and well developed [facility] Head: normocephalic and atraumatic Resp Auscultation: clear to auscultation bilaterally Cardio Other: regular rate S1/S2 GI Other: soft nontender nondistended normal bowel sounds Skin General: no rashes or lesions noted Neuro General: patient alert, patient awake, patient oriented x3, moves all extremities and CN's II-XI intact bilaterally Extrem General: normal to inspection and full ROM Psych Appearance: grossly normal Objective Labs Result Diagrams: 10/26/21 06:50 10/25/21 13:30 Labs: Laboratory Results - last 24 hr 10/25/21 10/25/21 10/25/21 13:30 13:30 13:30 WBC 9.1 RBC 3.31 L Hgb 9.9 L Hct 29.0 L MCV 87.7 MCH 29.9 MCHC 34.1 RDW 15.2 H Plt Count 207 Neut % (Auto) 82.1 H Lymph % (Auto) 9.1 L [place] % (Auto) 6.9 Eos % (Auto) 0.9 L Baso % (Auto) 1.0 Neut # (Auto) 7500 H Lymph # (Auto) 800 L [place] # (Auto) 600 Eos # (Auto) 100 Baso # (Auto) 100 PT 12.2 INR 1.1 APTT 29 D Sodium 139 Potassium 4.1 Chloride 105 Carbon Dioxide 25 BUN 21 H Creatinine 1.63 H Estimated GFR 42 L BUN/Creatinine Ratio 12.9 Glucose 81 Hemoglobin A1c Calcium 8.2 L Total Creatine Kinase 161 CK-MB (CK-2) 1.99 CK-MB (CK-2) Rel Index 1.2 L Troponin I 0.026 Urine Color Urine Appearance Urine pH Ur Specific [place] Urine Protein Urine Glucose (UA) Urine Ketones Urine Occult Blood Urine Nitrate Urine Bilirubin Urine Urobilinogen Ur Leukocyte Esterase Urine RBC Urine WBC Ur Squamous Epith Cells Urine Bacteria Ur Culture Indicated? Micro UA Comment U Opiates 300ng/mL cut Ur Oxycodone Screen Urine Methadone Screen Ur Barbiturates Screen U Tricyclic Antidepress Ur Phencyclidine Scrn Ur Amphetamines Screen U Methamphetamines Scrn Ur MDMA Scrn (Ecstasy) U Benzodiazepines Scrn Urine Cocaine Screen U Marijuana (THC) Screen SARS-CoV-2 (PCR) 10/25/21 10/25/21 10/25/21 13:30 13:30 13:32 WBC RBC Hgb Hct MCV MCH MCHC RDW Plt Count Neut % (Auto) Lymph % (Auto) [place] % (Auto) Eos % (Auto) Baso % (Auto) Neut # (Auto) Lymph # (Auto) [place] # (Auto) Eos # (Auto) Baso # (Auto) PT INR APTT Sodium Potassium Chloride Carbon Dioxide BUN Creatinine Estimated GFR BUN/Creatinine Ratio Glucose Hemoglobin A1c 6.1 H Calcium Total Creatine Kinase CK-MB (CK-2) CK-MB (CK-2) Rel Index Troponin I Urine Color Yellow Urine Appearance Clear Urine pH 5.0 Ur Specific [place] 1.010 Urine Protein Trace H Urine Glucose (UA) Negative Urine Ketones Negative Urine Occult Blood Trace-lysed Urine Nitrate Negative Urine Bilirubin Negative Urine Urobilinogen 0.2 Ur Leukocyte Esterase Negative Urine RBC None seen Urine WBC None seen Ur Squamous Epith Cells 0-1 /hpf Urine Bacteria Occasional (0-1) Ur Culture Indicated? Cult not indicated Micro UA Comment Microscopic normal U Opiates 300ng/mL cut Ur Oxycodone Screen Urine Methadone Screen Ur Barbiturates Screen U Tricyclic Antidepress Ur Phencyclidine Scrn Ur Amphetamines Screen U Methamphetamines Scrn Ur MDMA Scrn (Ecstasy) U Benzodiazepines Scrn Urine Cocaine Screen U Marijuana (THC) Screen SARS-CoV-2 (PCR) Negative 10/25/21 10/26/21 13:38 06:50 WBC 7.0 RBC 3.27 L Hgb 9.7 L Hct 28.3 L MCV 86.7 MCH 29.5 MCHC 34.1 RDW 15.0 H Plt Count 207 Neut % (Auto) 68.3 Lymph % (Auto) 17.2 L [place] % (Auto) 10.4 Eos % (Auto) 3.7 Baso % (Auto) 0.4 Neut # (Auto) 4700 Lymph # (Auto) 1200 [place] # (Auto) 700 Eos # (Auto) 300 Baso # (Auto) 0 PT INR APTT Sodium Potassium Chloride Carbon Dioxide BUN Creatinine Estimated GFR BUN/Creatinine Ratio Glucose Hemoglobin A1c Calcium Total Creatine Kinase CK-MB (CK-2) CK-MB (CK-2) Rel Index Troponin I Urine Color Urine Appearance Urine pH Ur Specific [place] Urine Protein Urine Glucose (UA) Urine Ketones Urine Occult Blood Urine Nitrate Urine Bilirubin Urine Urobilinogen Ur Leukocyte Esterase Urine RBC Urine WBC Ur Squamous Epith Cells Urine Bacteria Ur Culture Indicated? Micro UA Comment U Opiates 300ng/mL cut Negative Ur Oxycodone Screen Negative Urine Methadone Screen Negative Ur Barbiturates Screen Negative U Tricyclic Antidepress Negative Ur Phencyclidine Scrn Negative Ur Amphetamines Screen Negative U Methamphetamines Scrn Negative Ur MDMA Scrn (Ecstasy) Negative U Benzodiazepines Scrn Negative Urine Cocaine Screen Negative U Marijuana (THC) Screen Negative SARS-CoV-2 (PCR) PFSH Medical History Dyslipidemia Hypertension Osteoarthritis Social History details: has girlfriend of 3 years household members: family Smoking Status: Former smoker alcohol intake: former substance use type: does not use Discharge Assessment & Plan Assessment and Plan Assessment: #TIA/CVA #carotid stenosis, bilateral, severe MRI clear with evident resolution o symptoms no facial droop or word salad today. Permissive HTN aim for SBP 160-180 atorvastatin 80mg and ASA 81 #Hypertension, chronic, uncontrolled, hypertensive crisis on admission stop home atenolol 50 mg p.o. q.day, lisinopril 40 mg p.o. q.day, and furosemide 40 mg p.o. q.day. #Anemia, normocytic/normochromic, chronic at basline Likely anemia of chronic disease, monitor #Diabetes mellitus 2, chronic resume home meds on d/c #Chronic renal failure, Stage 3B assiduous hydration advised #Hyperlipidemia, chronic continue home atorvastatin 80 mg p.o. q.day. #BPH, chronic Continue home alfuzosin 10 mg p.o. q.day #Insomnia, chronic Continue home trazodone 100 mg p.o. q.h.s. #tobacco abuse pt reports he has quit successfully, advised to keep it up FEN:? PO fluids, carb consistent diet DVT prophylaxis:? Lovenox GI prophylaxis:? Protonix Code: full MDM: sister Heydi in [place] Disposition:?d/c home, f/u with PCP as outpt. Discharge Plan Discharge Plan Patient Disposition: Home Discharge orders & Medications Prescriptions: New lisinopril 20 mg Tablet 40 mg PO DAILY Qty: 30 0RF Continued potassium chloride 10 mEq Tablet,Er Particles/Crystals 10 meq PO DAILY trazodone 100 mg Tablet 100 mg PO BEDTIME melatonin 5 mg Tablet 5 mg PO BEDTIME aspirin 81 mg Tablet,Delayed Release (Dr/Ec) 81 mg PO DAILY Qty: 30 1RF atorvastatin 80 mg tablet 80 mg PO BEDTIME Qty: 90 3RF glimepiride 4 mg tablet 4 mg PO QAM Osteo Bi-Flex 1 tab PO QAM omeprazole 20 mg capsule,delayed release(DR/EC) 20 mg PO BID Label Comments: take 1 capsule by mouth twice a day 30 MINUTES BEFORE MEALS furosemide 20 mg tablet 40 mg PO DAILY Label Comments: take 2 tablets by mouth once daily alfuzosin 10 mg tablet extended release 24 hr 10 mg PO DAILY Label Comments: take 1 tablet by mouth once daily Discontinued atenolol 50 MG tablet 50 mg PO DAILY Qty: 0 lisinopril 20 mg tablet 20 mg PO DAILY Label Comments: take 1 tablet by mouth once daily Follow up/Referrals: Henri Plummer MD [Primary Care Provider] - Diet/Activity/Treatments Diet: Carb-consistent/Diabetic Discharge Data Primary Care Provider: Henri Plummer
--- NOTE | 2021-10-26 18:06 | PC.NURSE ---
Pt is AxO4, independent and cooperative. VSS, pt denies pain. BG was -73/243 and pt received coverage for that. Pt is eating well and voiding well. MRI was done and no acute ischemia found so pt is ready to d/c. However, pt has only 1 friend who is working today till 7 pm. Thus, pt is eating his dinner and waiting for his friend to p/u. D/c instructin were given to pt and pt knows he is going to f/u with Dr. Plummer. No other changes.
--- NOTE | 2021-10-26 18:24 | PC.NURSE ---
Pt is AxOx2-3, anxious at times and cooperative. VSS except in the afternoon, pt gets SOB, hypoxic SpO2-84% on 2L. Pt denies pain. Some crackles heard on bases bilaterally and posteriorly. MD is notified and Chest X-ray was done. There was slightl pleural effusion shown on the x-ray. MD rounded on pt. Pt is still on ABO so there is not much change Tx. Pt's IV went bad but pt was very scared to have new one and got even more anxious. Thus, MD changed her ABO into PO. Dressing changed in the morning. Pt's dtr is supportive. Continue monitor.
== END 2021-10-26 20:05 | disposition home or self-care (01) ==
LOC: ED 15:01 → AC 15:24
PROVIDERS: Admitting Provider Family Medicine; Emergency Provider Emergency Medicine; PCP Family Medicine; Referring Provider Emergency Medicine; Visit Provider Family Medicine
DX: G45.9 Transient cerebral ischemic attack, unspecified (principal); E78.5 Hyperlipidemia, unspecified; I12.9 Hypertensive chronic kidney disease with stage 1 through stage 4 chronic kidney disease, or unspecified chronic kidney disease; E11.22 Type 2 diabetes mellitus with diabetic chronic kidney disease; N18.32 Chronic kidney disease, stage 3b; N40.0 Benign prostatic hyperplasia without lower urinary tract symptoms; D64.9 Anemia, unspecified; I16.9 Hypertensive crisis, unspecified; G47.00 Insomnia, unspecified; Z79.84 Long term (current) use of oral hypoglycemic drugs; R29.702 NIHSS score 2; Z20.822 Contact with and (suspected) exposure to COVID-19
CPT/HCPCS: 36415; 70450; 70496; 70498; 70551; 80048; 80305; 81001; 82550; 82553; 82962; 83036; 84484; 85025; 85610; 85730; 87635; 93005; 93010; 96372; 96374; 96376; 99284; C9803; G0378; J0360; J1650; J1815; Q9967

== ENCOUNTER → 2022-02-26 12:16 | Outpatient (CLI) | payer OTHER, MEDICAID, SELFPAY ==
[2021-10-25 15:39] VITALS: BMI 28.3
--- NOTE | 2022-02-26 | DI.ECHO.S_ITS ---
[place] [facility] +---------+ : : [address] : [place] : : : : [id number] : : : : Phone: [phone]---------+ Echocardiogram Report + + :Name: DEMARIO ELIZABETH Study Date: 02/26/2022 Height: 67 in : :[facility] ReadingLocation: Weight: 181 lb : : Gender: Male BSA: 1.9 m2 : :: 1940 Age: 81 yrs BP: 174/68 mmHg: :Reason For Study: Murmur : :Ordering Physician: BOZENA, : :ERIC Performed By: Willie Chase : :Referring: ERIC SEALS : + + Interpretation Summary A contrast injection of Definity was performed to improve assessment of LV function. The study quality was technically difficult. The ejection fraction is estimated to be 55-60%. There are no obvious focal wall motion abnormalities noted but poor endocardial definition reduces the sensitivity for the detection of such. There is trace mitral regurgitation. Procedure: A two-dimensional transthoracic echocardiogram with color flow and Doppler was performed. There is no prior echocardiogram noted for this patient. A contrast injection of Definity was performed to improve assessment of LV function. The study quality was technically difficult. The patient was in normal sinus rhythm during the exam. Left Ventricle: The left ventricle is normal in size and wall thickness. Left ventricular systolic function is normal. The ejection fraction is estimated to be 55-60%. There are no obvious focal wall motion abnormalities noted but poor endocardial definition reduces the sensitivity for the detection of such. Diastolic parameters suggest a relaxation abnormality of the left ventricle, consistent with probable normal filling pressures. Right Ventricle: The right ventricle is normal in size and function. Atria: Both atria are normal in size. The interatrial septum grossly appears intact with no obvious evidence for an atrial septal defect. Mitral Valve: The mitral valve is normal in structure and function. There is trace mitral regurgitation. Aortic Valve: The aortic valve is normal in structure and function. There is trace aortic regurgitation. Tricuspid Valve: The tricuspid valve is normal in structure and function. No tricuspid regurgitation. Pulmonary artery pressures cannot be estimated because of the lack of a measurable TR jet velocity. Pulmonic Valve: The pulmonic valve is normal in structure and function. There is no pulmonic valvular regurgitation. Great Vessels: The aortic root is normal size. The ascending aorta could not be visualized. The IVC is of normal diameter and collapses greater than 50% with a sniff. This suggests a low right atrial pressure of 3 mm Hg. Pericardium/ Pleura There is no pericardial effusion. There is no pleural effusion. MMode/2D Measurements & Calculations LVIDd: 5.0 cm LVOT diam: 2.1 cm LVIDs: 3.5 cm Ao root diam: 3.0 cm FS: 30.0 % IVSd: 1.0 cm LVPWd: 0.80 cm LV conway. diameter/BSA (cm/m^2): 2.6 LV sys. diameter/BSA (cm/m^2): 1.8 LA A2 area: 17.2 cm2 LVLs ap4: 6.1 cm LA A4 area: 17.4 cm2 LA length (vol): 4.8 cm LA vol: 53.1 ml LA vol index: 27.4 ml/m2 LVLd ap2: 8.1 cm TAPSE_phl: 2.3 cm LVLs ap2: 7.2 cm Doppler Measurements & Calculations Ao V2 max: 123.0 cm/sec LVOT Max Arnoldo: 94.6 cm/sec Ao V2 mean: 91.8 cm/sec LV V1 max P.6 mmHg Ao max P.0 mmHg LV V1 VTI: 22.5 cm Ao mean P.0 mmHg TRACY(I,D): 3.2 cm2 Ao V2 VTI: 24.5 cm TRACY(V,D): 2.7 cm2 sev ratio: 0.92 TRACY indexed to BSA (cm^2/m^2): 1.6 MV E max arnoldo: 71.1 cm/sec SV(LVOT): 77.9 ml MV A max arnoldo: 98.1 cm/sec MV E/A: 0.72 Med Peak E' Arnoldo: 5.2 cm/sec E/E' med: 13.6 Lat Peak E' Arnoldo: 9.0 cm/sec E/E' lat: 7.9 E/e' average: 10.8 MV dec time: 0.28 sec AV VR_phl: 0.77 MV P1/2t-pr_phl: 82.0 msec Reading Physician:03:43 PM
== END ==
PROVIDERS: PCP Family Medicine; Referring Provider Internal Medicine; Visit Provider Internal Medicine
DX: I65.29 Occlusion and stenosis of unspecified carotid artery (principal); R01.1 Cardiac murmur, unspecified; R42 Dizziness and giddiness
CPT/HCPCS: C8929; Q9957